=== PATIENT | female | born 1945 | race Caucasian/White ===

== ENCOUNTER → 2016-05-04 | Outpatient (CLI) | payer MEDICARE ==
--- NOTE | 2016-05-06 07:44 | MM ---
Reason for exam: screening (asymptomatic). Last mammogram was performed 1 year and 9 months ago. History: Patient is postmenopausal. Family history of breast cancer in sister and breast cancer in maternal aunt. Physical Findings: A clinical breast exam by your physician is recommended on an annual basis and results should be correlated with mammographic findings. MG Screening Mammo w CAD Bilateral CC and MLO view(s) were taken. Prior study comparison: July 21, 2014, bilateral MG screening mammo w CAD. September 05, 2013, bilateral MG screening mammo w CAD. September 03, 2012, bilateral digital screening mammo w/CAD. September 01, 2011, bilateral digital screening mammo w/CAD. August 30, 2010, bilateral digital screening mammo w/CAD. The breast tissue is heterogeneously dense. This may lower the sensitivity of mammography. Global asymmetry subareolar right breast appears more defined and new from older priors. ASSESSMENT: Incomplete: need additional imaging evaluation, BI-RAD 0 RECOMMENDATION: Special view mammogram of the right breast. If lesion persists on supplemental views, image directed ultrasound is recommended. [facility] will attempt to contact patient to return for supplemental views and ultrasound if indicated.
== END ==
LOC: RADMAMWWP 13:07
PROVIDERS: ATTEND Family Medicine
DX: Z12.31 Encounter for screening mammogram for malignant neoplasm of breast (principal); R92.2 Inconclusive mammogram

== ENCOUNTER → 2016-05-12 | Outpatient (CLI) | payer MEDICARE ==
--- NOTE | 2016-05-12 10:06 | MM ---
Reason for exam: additional evaluation requested from abnormal screening. Last mammogram was performed less than 1 month ago. History: Patient is postmenopausal. Family history of breast cancer in sister and breast cancer in maternal aunt. Physical Findings: Nurse did not find any significant physical abnormalities on exam. MG Work Up Mamm w CAD RT CC and MLO view(s) were taken of the right breast. Prior study comparison: May 04, 2016, bilateral MG screening mammo w CAD. July 21, 2014, bilateral MG screening mammo w CAD. September 05, 2013, bilateral MG screening mammo w CAD. August 28, 2009, bilateral digital screening mammogram. There are scattered fibroglandular densities. New global asymmetry anterior subareolar right breast persists thought no discrete mass is identified. These results were verbally communicated with the patient and result sheet given to the patient on 05/12/16. ASSESSMENT: Incomplete: need additional imaging evaluation, BI-RAD 0 RECOMMENDATION: Ultrasound of the right breast.
--- NOTE | 2016-05-12 10:11 | USB ---
Reason for exam: additional evaluation requested from abnormal screening. History: Patient is postmenopausal. Family history of breast cancer in sister and breast cancer in maternal aunt. US Breast Workup Limited RT Right breast ultrasound demonstrates a 1.8 x 1.5 x 1.2cm irregular, solid, hypoechoic lesion with shadow posterior to nipple for which a biopsy is recommended. These results were verbally communicated with the patient and result sheet given to the patient on 05/12/16. ASSESSMENT: Suspicious, BI-RAD 4 RECOMMENDATION: Ultrasound core biopsy of the right breast. Called Dr. Verdin with mammographic findings and has scheduled an appointment for the patient for 06/08/16 at 4:[address] Bee. Biopsy scheduled for 05/20/16 at 11:30. PRELIMINARY REPORT CALLED AND FAXED TO DR. BEE ON 05/12/16 AT 300/TP.
== END | disposition home or self-care (01) ==
LOC: RADMAMWWP 07:42
PROVIDERS: ATTEND Family Medicine
DX: R92.2 Inconclusive mammogram (principal); R92.8 Other abnormal and inconclusive findings on diagnostic imaging of breast
CPT/HCPCS: 76642; G0206

== ENCOUNTER → 2016-05-20 | Day surgery (SDC) | payer MEDICARE ==
[~2016-05-20] MED LIST: ALPRAZolam 0.25 MG TAB ONE; BACITRACIN OINT 1 EACH PACKET TOPICAL ONE; LIDOCAINE 1% INJ 10MG/ML (20 ML MDV) ONE; SODIUM BICARB 4% 5 ML VIAL (0.48 MEQ/ML) ONE
--- NOTE | 2016-05-20 12:31 | USB ---
EXAMINATION TYPE: US discontinued breast bx RT DATE OF EXAM: 05/20/2016 12:12 PM CLINICAL HISTORY: 71-year-old female R92.8, ABN MAMM. TECHNIQUE AND FINDINGS: The patient's right breast subareolar region was scanned. The suspicious area seen on the 05/12/2016 u ltrasound could not be reproduced. We note the use of 2 different ultrasound machine's. Decision is made to proceed with a stereotactic core needle biopsy. Findings discussed with the patie nt. IMPRESSION: BI-RADS 4-suspicious. RECOMMENDATION: 1. Stereotactic core needle biopsy of the focal asymmetry right breast.
--- NOTE | 2016-05-20 16:47 | MM ---
EXAMINATION TYPE: MG stereo VAD BX RT DATE OF EXAM: 05/20/2016 1:44 PM COMPARISON: 05/04/2016 and 05/12/2016 CLINICAL HISTORY: 71-year-old female abnormal mammogram. The sonographic abnormality could not be duplicated at the time at which the patient presented for ultrasound biopsy. TECHNIQUE: Stereotactic guided core biopsy of the right breast. FINDINGS: The procedure of stereotactic guided core biopsy was explained to the patient. Benefits, alternatives, and risks were discussed. An informed consent was then obtained. [facility]. Shortness pathway was CC from below approach. I performed the localization followed by the remainder of the procedure. An 8 gauge mammotome vacuum assisted biopsy gun was used to obtain multiple core samples. The patient tolerated the procedure well without any immediate complication. The patient was kept in the radiology department for short stay after the procedure and then discharged home in stable condition. Post biopsy mammogram shows the clip to have migrated slightly inferiorly relative to the targeted area of concern on the preprocedure images. IMPRESSION: SUCCESSFUL, UNCOMPLICATED STEREOTACTIC GUIDED CORE BIOPSY OF AREA OF CONCERN IN THE RIGHT BREAST, FULL PATHOLOGY RESULTS TO FOLLOW. RECOMMENDATION: 1. FOLLOW-UP PATHOLOGY. 2. IF BENIGN RESULTS, SIX-MONTH FOLLOW-UP MAMMOGRAM AND ULTRASOUND ARE RECOMMENDED. Pathology Results: Benign BREAST, RIGHT, CORE BIOPSY: FIBROCYSTIC CHANGES INCLUDING DENSE HYALINIZING FIBROSIS, SCAR AND FAT NECROSIS. Recommendation Follow up mammogram and ultrasound of the right breast in 6 months. LIZ
== END | disposition home or self-care (01) ==
LOC: RADUSWWP 10:21
PROVIDERS: ATTEND Surgery
DX: R92.8 Other abnormal and inconclusive findings on diagnostic imaging of breast (principal); N60.31 Fibrosclerosis of right breast; N64.1 Fat necrosis of breast
CPT/HCPCS: 19083; 88305; 19081; 76641; J2001

== ENCOUNTER → 2016-12-01 | Outpatient (CLI) | payer MEDICARE ==
--- NOTE | 2016-12-01 10:37 | USB ---
Reason for exam: follow-up at short interval from prior study. History: Patient is postmenopausal. Family history of breast cancer in sister and breast cancer in maternal aunt. Benign MG stereo VAD BX RT of the right breast, May 20, 2016. US discontinued breast bx RT of the right breast, May 20, 2016. Physical Findings: Nurse did not find any significant physical abnormalities on exam. US Breast RT Right breast ultrasound includes all four quadrants, the retroareolar region and axilla. Finding demonstrates dense tissue. These results were verbally communicated with the patient and result sheet given to the patient on 12/01/16. ASSESSMENT: Negative, BI-RAD 1 RECOMMENDATION: Return to routine screening mammogram schedule for both breasts. Back on schedule for April 2017.
== END | disposition home or self-care (01) ==
LOC: RADUSWWP 09:57
PROVIDERS: ATTEND Surgery
DX: R92.8 Other abnormal and inconclusive findings on diagnostic imaging of breast (principal)

== ENCOUNTER 2017-04-21 06:42 | Day surgery (SDC) | payer MEDICARE ==
[2017-04-19 14:29] VITALS: BMI 20.9
[~2017-04-21 06:42] MED LIST changes: -ALPRAZolam 0.25 MG TAB ONE; -BACITRACIN OINT 1 EACH PACKET TOPICAL ONE; +HYDROmorphone 0.5 MG/0.5 ML SYRINGE IVP PRN; +LACTATED RINGERS 1,000 ML IV SCH; -LIDOCAINE 1% INJ 10MG/ML (20 ML MDV) ONE; +ONDANSETRON 4 MG/2 ML VIAL IVP PRN; -SODIUM BICARB 4% 5 ML VIAL (0.48 MEQ/ML) ONE
[2017-04-21 06:55] VITALS: RESP 16; TEMP 97.3
[2017-04-21 07:09] LABS: Glucose,Whole Blood 166 mg/dL (75-99)
[2017-04-21] MEDS ORDERED: PROPOFOL 10 MG/ML 20 ML VIAL IV ONE (07:33)
--- NOTE | 2017-04-21 08:05 | P.PCN ---
Date of Procedure: 04/21/17 Procedure(s) Performed: BRIEF HISTORY: Patient is a 72-year-old pleasant female, scheduled for an elective colonoscopy as a part of evaluation of change in bowel habits and progressive weight loss the last several months duration. PROCEDURE PERFORMED: Colonoscopy. PREOPERATIVE DIAGNOSIS: Change in bowel habits/progressive weight loss. IV sedation per Anesthesia. PROCEDURE: After informed consent was obtained, the patient, was brought into the endoscopy unit. IV sedation was administered by Anesthesia under continuous monitoring. Digital rectal examination was normal. Initially the Olympus CF- 160 flexible video colonoscope was then inserted in the rectum, gradually advanced into the cecum without any difficulty. Careful examination was performed as the scope was gradually being withdrawn. Ileocecal valve and the appendiceal orifice were visualized and appeared normal. Prep was excellent. Mucosa of the cecum, ascending colon, transverse colon, descending colon, sigmoid colon, and rectum appeared normal. Retroflexion was performed in the rectum and no lesions were seen. Scattered sigmoid diverticula seen. The patient tolerated the procedure well. IMPRESSION: Normal-appearing colon from rectum to cecum with no evidence of colorectal neoplasia Scattered sigmoid diverticula. RECOMMENDATIONS: Findings of this examination were discussed with the patient as well as her family. She was advised to have a repeat screening colonoscopy in 10 years..
[2017-04-21 08:14] VITALS: BP 114/72; PULSE 67
== END 2017-04-21 08:45 | disposition home or self-care (01) ==
LOC: ORWHC2ENDO 06:42
PROVIDERS: ATTEND Internal Medicine Gastroenterology
DX: K57.30 Diverticulosis of large intestine without perforation or abscess without bleeding (principal); I10 Essential (primary) hypertension; E78.5 Hyperlipidemia, unspecified; I48.91 Unspecified atrial fibrillation; E11.9 Type 2 diabetes mellitus without complications; F03.90 Unspecified dementia, unspecified severity, without behavioral disturbance, psychotic disturbance, mood disturbance, and anxiety; Z79.01 Long term (current) use of anticoagulants; Z79.4 Long term (current) use of insulin; Z79.899 Other long term (current) drug therapy
CPT/HCPCS: 45378; J2704

== ENCOUNTER → 2017-05-08 | Outpatient (CLI) | payer MEDICARE ==
--- NOTE | 2017-05-08 12:57 | CT ---
EXAMINATION TYPE: CT abdomen pelvis wo con DATE OF EXAM: 05/08/2017 COMPARISON: NONE HISTORY: Hematuria CT DLP: 716 mGycm Examination of the solid and hollow viscera is limited given the lack of contrast. FINDINGS: LUNG BASES: No evidence for nodule. No evidence for infiltrate. LIVER/GB: The gallbladder is unremarkable. No space-occupying hepatic lesion. PANCREAS: No pancreatic mass identified. No inflammatory process seen. SPLEEN: No evidence for splenomegaly. No intrasplenic lesions seen. ADRENALS: No adrenal nodules identified. No evidence for thickening. KIDNEYS: No evidence for renal mass. No nephrolithiasis. No hydronephrosis. Large amount of air withi n the urinary bladder likely secondary to recent catheterization. BOWEL: Appendix has a normal appearance. No evidence of bowel obstruction. No inflammatory process. S mall sliding-type hiatal hernia. Lymph nodes: No evidence for adenopathy greater than 1 cm. Abdominal aorta: Atheromatous changes seen. No evidence for aneurysm. Genital organs: Small calcified leiomyomas. Periuterine vascular calcifications. No adnexal masses ap preciated. Other: No significant abnormality. IMPRESSION: 1. No distinct abnormality to account for the patient's symptoms of hematuria. 2. Air within the bladder as discussed. 3. Small sliding-type hiatal hernia.
== END | disposition home or self-care (01) ==
LOC: RADCTMAIN 12:22
PROVIDERS: ATTEND Family Medicine
DX: K44.9 Diaphragmatic hernia without obstruction or gangrene (principal); R31.9 Hematuria, unspecified
CPT/HCPCS: 74176

== ENCOUNTER 2017-05-12 08:01 | Emergency (ER) | payer MEDICARE ==
[2017-05-12] MEDS ORDERED: SODIUM CHLORIDE 0.9% 1,000 ML IV STA (08:12)
[2017-05-12] MEDS ORDERED: SODIUM CHLORIDE 0.9% 500 ML IV STA (08:12)
--- NOTE | 2017-05-12 08:53 | ED ---
General Adult HPI - General Chief complaint: Weakness Stated complaint: NO ENERGY, PAIN IN RIGHT SIDE Time Seen by Provider: 05/12/17 08:11 Source: patient, family, RN notes reviewed, old records reviewed Mode of arrival: ambulatory Limitations: altered mental status - History of Present Illness Initial comments: This is a 72-year-old female to the ER for evaluation of weakness and pain. Patient is no significant injury medical history. Patient states is been weak for 2 days with pain in her right arm. She also has rash across the right side of her chest. No fevers no nausea vomiting or diarrhea no chest pain. Patient does state increased fatigue decreased appetite. Not feeling well - Related Data Home Medications Medication Instructions Recorded Confirmed Aspirin [Adult Low Dose Aspirin EC] 81 mg PO DAILY 09/28/15 05/12/17 Atorvastatin [Lipitor] 10 mg PO HS 09/28/15 05/12/17 Carvedilol [Coreg] 3.125 mg PO QAM 09/28/15 05/12/17 Donepezil [Aricept] 10 mg PO HS 09/28/15 05/12/17 Insulin Glargine [Lantus] 20 unit SQ QAM 09/28/15 05/12/17 Lisinopril [Zestril] 20 mg PO BID 09/28/15 05/12/17 Magnesium Oxide [Mag-Ox] 400 mg PO DAILY 09/28/15 05/12/17 Raloxifene [Evista] 60 mg PO HS 09/28/15 05/12/17 Repaglinide [Prandin] 0.5 mg PO QID 09/28/15 05/12/17 amLODIPine [Norvasc] 5 mg PO DAILY 09/28/15 05/12/17 Cholecalciferol [Vitamin D3] 400 unit PO DAILY@1200 04/19/17 05/12/17 Memantine [Namenda] 10 mg PO BID 04/19/17 05/12/17 Multivitamins, Thera [Multivitamin 1 tab PO DAILY 04/19/17 05/12/17 (formulary)] Rivaroxaban [Xarelto] 20 mg PO DAILY 04/19/17 05/12/17 Ascorbic Acid [Vitamin C] 500 mg PO DAILY 05/12/17 05/12/17 Previous Rx's Medication Instructions Recorded Lidocaine 5% Patch [Lidoderm] 1 patch TOPICAL DAILY #7 patch 05/12/17 traMADol HCL [Ultram] 50 mg PO Q6HR PRN #30 tab 05/12/17 valACYclovir HCL [Valtrex] 1,000 mg PO Q8HR #21 tab 05/12/17 Allergies Allergy/AdvReac Type Severity Reaction Status Date / Time No Known Allergies Allergy Verified 05/12/17 08:19 Review of Systems ROS Statement: Those systems with pertinent positive or pertinent negative responses have been documented in the HPI. ROS Other: All systems not noted in ROS Statement are negative. Past Medical History Past Medical History: Atrial Fibrillation, Dementia, Diabetes Mellitus, Hyperlipidemia, Hypertension, Sleep Apnea/CPAP/BIPAP Additional Past Medical History / Comment(s): wt loss of 183# down to 123# over last year,no appetite,scratches skin frequently causing some sores,has cpap History of Any Multi-Drug Resistant Organisms: None Reported Past Surgical History: No Surgical Hx Reported Additional Past Surgical History / Comment(s): mark cataracts,rt retinal repair Past Anesthesia/Blood Transfusion Reactions: No Reported Reaction Past Psychological History: No Psychological Hx Reported Smoking Status: Never smoker Past Alcohol Use History: None Reported Past Drug Use History: None Reported - Past Family History Mother Family Medical History: Cancer Father Family Medical History: Cancer Sister(s) Family Medical History: CVA/TIA, Dementia General Exam Limitations: altered mental status General appearance: alert, in no apparent distress Head exam: Present: atraumatic, normocephalic, normal inspection Eye exam: Present: normal appearance, PERRL, EOMI. Absent: scleral icterus, conjunctival injection, periorbital swelling ENT exam: Present: normal exam, mucous membranes moist Neck exam: Present: normal inspection. Absent: tenderness, meningismus, lymphadenopathy Respiratory exam: Present: normal lung sounds bilaterally. Absent: respiratory distress, wheezes, rales, rhonchi, stridor Cardiovascular Exam: Present: regular rate, normal rhythm, normal heart sounds. Absent: systolic murmur, diastolic murmur, rubs, gallop, clicks GI/Abdominal exam: Present: soft, normal bowel sounds. Absent: distended, tenderness, guarding, rebound, rigid Extremities exam: Present: normal inspection, full ROM, normal capillary refill. Absent: tenderness, pedal edema, joint swelling, calf tenderness Back exam: Present: normal inspection Neurological exam: Present: alert, oriented X3, CN II-XII intact Psychiatric exam: Present: normal affect, normal mood Skin exam: Present: warm, dry, intact, normal color. Absent: rash Course Vital Signs 05/12/17 05/12/17 05/12/17 08:04 09:25 10:20 Temperature 98.1 F 98.0 F 98.0 F Pulse Rate 82 73 74 Respiratory 18 20 20 Rate Blood Pressure 134/63 131/64 130/85 O2 Sat by Pulse 99 100 99 Oximetry - Reevaluation(s) Reevaluation #1: His pain is controlled no acute distress no chest pain or shortness of breath EKG Findings - EKG Comments: EKG Findings:: EKG shows normal sinus rhythm rate of 79, LA 138, QRS 70, QTc 444 Medical Decision Making - Medical Decision Making 72 female the ER for evaluation, right side pain or chest pain. Patient's feeling better at this time, would like to be discharged home, labwork and x- ray are negative - Lab Data Result diagrams: 05/12/17 08:35 05/12/17 08:35 Lab Results 05/12/17 05/12/17 05/12/17 Range/Units 08:35 08:35 08:35 WBC 5.8 (3.8-10.6) k/uL RBC 4.61 (3.80-5.40) m/uL Hgb 13.4 (11.4-16.0) gm/dL Hct 40.7 (34.0-46.0) % MCV 88.3 (80.0-100.0) fL MCH 29.0 (25.0-35.0) pg MCHC 32.9 (31.0-37.0) g/dL RDW 12.4 (11.5-15.5) % Plt Count 211 (150-450) k/uL Neutrophils % 75 % Lymphocytes % 13 % Monocytes % 6 % Eosinophils % 4 % Basophils % 0 % Neutrophils # 4.3 (1.3-7.7) k/uL Lymphocytes # 0.8 L (1.0-4.8) k/uL Monocytes # 0.3 (0-1.0) k/uL Eosinophils # 0.2 (0-0.7) k/uL Basophils # 0.0 (0-0.2) k/uL PT (9.0-12.0) sec INR (<1.2) APTT (22.0-30.0) sec Sodium 140 (137-145) mmol/L Potassium 4.1 (3.5-5.1) mmol/L Chloride 102 (98-107) mmol/L Carbon Dioxide 28 (22-30) mmol/L Anion Gap 10 mmol/L BUN 11 (7-17) mg/dL Creatinine 0.67 (0.52-1.04) mg/dL Est GFR (MDRD) Af Amer >60 (>60 ml/min/1.73 sqM) Est GFR (MDRD) Non-Af >60 (>60 ml/min/1.73 sqM) Glucose 337 H (74-99) mg/dL Plasma Lactic Acid Venkat (0.7-2.0) mmol/L Calcium 9.8 (8.4-10.2) mg/dL Phosphorus 3.7 (2.5-4.5) mg/dL Magnesium 2.0 (1.6-2.3) mg/dL Total Bilirubin 1.0 (0.2-1.3) mg/dL AST 20 (14-36) U/L ALT 26 (9-52) U/L Alkaline Phosphatase 92 (38-126) U/L Total Creatine Kinase <20 L (30-135) U/L CK-MB (CK-2) <0.2 (0.0-2.4) ng/mL CK-MB (CK-2) Rel Index Troponin I <0.012 (0.000-0.034) ng/mL Total Protein 6.9 (6.3-8.2) g/dL Albumin 3.7 (3.5-5.0) g/dL Influenza Type A RNA (Not Detectd) Influenza Type B (PCR) (Not Detectd) 05/12/17 05/12/17 05/12/17 Range/Units 08:35 08:35 08:40 WBC (3.8-10.6) k/uL RBC (3.80-5.40) m/uL Hgb (11.4-16.0) gm/dL Hct (34.0-46.0) % MCV (80.0-100.0) fL MCH (25.0-35.0) pg MCHC (31.0-37.0) g/dL RDW (11.5-15.5) % Plt Count (150-450) k/uL Neutrophils % % Lymphocytes % % Monocytes % % Eosinophils % % Basophils % % Neutrophils # (1.3-7.7) k/uL Lymphocytes # (1.0-4.8) k/uL Monocytes # (0-1.0) k/uL Eosinophils # (0-0.7) k/uL Basophils # (0-0.2) k/uL PT 11.1 (9.0-12.0) sec INR 1.2 H (<1.2) APTT 23.8 (22.0-30.0) sec Sodium (137-145) mmol/L Potassium (3.5-5.1) mmol/L Chloride (98-107) mmol/L Carbon Dioxide (22-30) mmol/L Anion Gap mmol/L BUN (7-17) mg/dL Creatinine (0.52-1.04) mg/dL Est GFR (MDRD) Af Amer (>60 ml/min/1.73 sqM) Est GFR (MDRD) Non-Af (>60 ml/min/1.73 sqM) Glucose (74-99) mg/dL Plasma Lactic Acid Venkat 1.2 (0.7-2.0) mmol/L Calcium (8.4-10.2) mg/dL Phosphorus (2.5-4.5) mg/dL Magnesium (1.6-2.3) mg/dL Total Bilirubin (0.2-1.3) mg/dL AST (14-36) U/L ALT (9-52) U/L Alkaline Phosphatase (38-126) U/L Total Creatine Kinase (30-135) U/L CK-MB (CK-2) (0.0-2.4) ng/mL CK-MB (CK-2) Rel Index Troponin I (0.000-0.034) ng/mL Total Protein (6.3-8.2) g/dL Albumin (3.5-5.0) g/dL Influenza Type A RNA Not Detected (Not Detectd) Influenza Type B (PCR) Not Detected (Not Detectd) - Radiology Data Radiology results: report reviewed (Chest x-rays negative for acute disease), image reviewed Disposition Clinical Impression: Flank pain Disposition: HOME SELF-CARE Condition: Good Instructions: Abdominal Pain (ED) Prescriptions: Lidocaine 5% Patch [Lidoderm] 1 patch TOPICAL DAILY #7 patch traMADol HCL [Ultram] 50 mg PO Q6HR PRN #30 tab PRN Reason: Pain valACYclovir HCL [Valtrex] 1,000 mg PO Q8HR #21 tab Referrals: Staci Verdin MD [Primary Care Provider] - 1-2 days
[2017-05-12 09:07] LABS: Basophils % (A) 0 %; Eosinophils # (A) 0.2 k/uL (0-0.7); Eosinophils % (A) 4 %; HCT 40.7 % (34.0-46.0); HGB 13.4 gm/dL (11.4-16.0); Lymphocytes # (A) 0.8 k/uL (1.0-4.8); Lymphocytes % (A) 13 %; MCHC 32.9 g/dL (31.0-37.0); MCV 88.3 fL (80.0-100.0); Mean Platelet Volume 7.5; Monocytes # (A) 0.3 k/uL (0-1.0); Monocytes % (A) 6 %; Neutrophils # (A) 4.3 k/uL (1.3-7.7); Neutrophils % (A) 75 %; Platelet Count 211 k/uL (150-450); RBC 4.61 m/uL (3.80-5.40); RDW 12.4 % (11.5-15.5); WBC 5.8 k/uL (3.8-10.6)
--- NOTE | 2017-05-12 09:09 | XR ---
EXAMINATION TYPE: XR chest 2V DATE OF EXAM: 05/12/2017 COMPARISON: None HISTORY: 72-year-old female with weakness and confusion TECHNIQUE: AP and lateral views FINDINGS: The cardiomediastinal silhouette, aorta, and pulmonary vasculature are within normal limits. Strandy atelectasis in the lower lungs. Mild hyperinflation. Otherwise, lungs And pleural spaces are clear. IMPRESSION: No acute cardiopulmonary process. Mild hyperinflation may relate to depth of inspiration or underlyin g emphysema.
[2017-05-12 09:10] LABS: INR 1.2 (<1.2); Partial Thromboplastin Time 23.8 sec (22.0-30.0); Prothrombin Time 11.1 sec (9.0-12.0)
[2017-05-12] MEDS ORDERED: MORPHINE SULFATE 2 MG/ML SYRINGE IVP ONE (09:10)
[2017-05-12] MEDS ORDERED: valACYclovir HCL 1,000 MG TABLET PO STA (09:12)
[2017-05-12] MEDS ORDERED: ACETAMINOPHEN IV (For NPO) 1,000 MG in EMPTY BAG 1 BAG IVPB STA (09:12)
[2017-05-12 09:15] LABS: ALT 26 U/L (9-52); AST 20 U/L (14-36); Albumin 3.7 g/dL (3.5-5.0); Alkaline Phosphatase 92 U/L (38-126); Anion Gap 10 mmol/L; Blood Urea Nitrogen 11 mg/dL (7-17); Calcium 9.8 mg/dL (8.4-10.2); Carbon Dioxide 28 mmol/L (22-30); Chloride 102 mmol/L (98-107); Glucose 337 mg/dL (74-99); Phosphorous 3.7 mg/dL (2.5-4.5); Potassium 4.1 mmol/L (3.5-5.1); Sodium 140 mmol/L (137-145); Total Protein 6.9 g/dL (6.3-8.2)
[2017-05-12] MEDS ORDERED: LIDOCAINE 5% PATCH TOPICAL STA (09:23)
[2017-05-12 09:24] LABS: Creatine Kinase <20 U/L (30-135)
[2017-05-12 09:26] VITALS: RESP 20; TEMP 98
[2017-05-12 09:37] LABS: Creatine Kinase MB <0.2 ng/mL (0.0-2.4); Troponin I <0.012 ng/mL (0.000-0.034)
[2017-05-12 10:25] VITALS: BP 130/85; PULSE 74
[2017-05-13] MEDS ORDERED: LIDOCAINE 5% PATCH TOPICAL SCH (09:00)
== END 2017-05-12 10:24 | disposition home or self-care (01) ==
LOC: EC 08:01
DX: R10.9 Unspecified abdominal pain (principal); R41.82 Altered mental status, unspecified; R53.1 Weakness; M79.601 Pain in right arm; R21 Rash and other nonspecific skin eruption; R53.83 Other fatigue; R63.8 Other symptoms and signs concerning food and fluid intake; E78.5 Hyperlipidemia, unspecified; I48.91 Unspecified atrial fibrillation; I10 Essential (primary) hypertension; E11.9 Type 2 diabetes mellitus without complications; F03.90 Unspecified dementia, unspecified severity, without behavioral disturbance, psychotic disturbance, mood disturbance, and anxiety; G47.30 Sleep apnea, unspecified; Z79.01 Long term (current) use of anticoagulants; Z79.82 Long term (current) use of aspirin; Z79.4 Long term (current) use of insulin; Z79.899 Other long term (current) drug therapy; Z99.89 Dependence on other enabling machines and devices; Z53.20 Procedure and treatment not carried out because of patient's decision for unspecified reasons
CPT/HCPCS: 36415; 71046; 80053; 82550; 82553; 83605; 83735; 84100; 84484; 85025; 85610; 85730; 87502; 93005; 96360; 99285

== ENCOUNTER 2017-05-23 08:14 | Emergency (ER) | payer MEDICARE ==
[2017-05-23] MEDS ORDERED: SODIUM CHLORIDE 0.9% 500 ML IV STA (08:44)
--- NOTE | 2017-05-23 08:51 | ED ---
General Adult HPI - General Chief complaint: Weakness Stated complaint: Weak/constipation Time Seen by Provider: 05/23/17 08:36 Source: patient, family, RN notes reviewed Mode of arrival: ambulatory Limitations: no limitations - History of Present Illness Initial comments: This is a 72-year-old female presents emergency Department with chief complaint of generalized weakness, constipation. Patient states that she has not been feeling herself patient reports that she had an episode of shaking this morning. She did check her blood sugar which was 216. Patient states she feels much better at this time and has no specific complaints. She did state that she felt like she did have a bowel movement but cannot that she thought she may be constipated. She denies any dysuria no hematuria. She did urinate here without difficulty. Patient denies any headache, dizziness, chest pain, shortness of breath. Patient had a recent bout of shingles which is resolving. Patient was also seen in emergency department approximately 11 days ago for similar complaints of weakness. Patient has had recent weight loss over the last year of pressure 50 pounds which the daughter reports to patient not eating or for getting the patient that she is having difficulty with her dementia. - Related Data Home Medications Medication Instructions Recorded Confirmed Aspirin [Adult Low Dose Aspirin EC] 81 mg PO DAILY 09/28/15 05/23/17 Atorvastatin [Lipitor] 5 mg PO HS 09/28/15 05/23/17 Carvedilol [Coreg] 3.125 mg PO QAM 09/28/15 05/23/17 Donepezil [Aricept] 10 mg PO HS 09/28/15 05/23/17 Insulin Glargine [Lantus] 10 units SQ DAILY 09/28/15 05/23/17 Lisinopril [Zestril] 20 mg PO BID 09/28/15 05/23/17 Magnesium Oxide [Mag-Ox] 400 mg PO BID 09/28/15 05/23/17 Raloxifene [Evista] 60 mg PO HS 09/28/15 05/23/17 Repaglinide [Prandin] 0.5 mg PO QAM 09/28/15 05/23/17 amLODIPine [Norvasc] 5 mg PO DAILY 09/28/15 05/23/17 Memantine [Namenda] 10 mg PO BID 04/19/17 05/23/17 Fluconazole [Diflucan] 100 mg PO DAILY 05/23/17 05/23/17 Mirtazapine [Remeron] 15 mg PO HS 05/23/17 05/23/17 Repaglinide [Prandin] 1 - 1.5 mg PO HS 05/23/17 05/23/17 Previous Rx's Medication Instructions Recorded Lidocaine 5% Patch [Lidoderm] 1 patch TOPICAL DAILY #7 patch 05/12/17 traMADol HCL [Ultram] 50 mg PO Q6HR PRN #30 tab 05/12/17 valACYclovir HCL [Valtrex] 1,000 mg PO Q8HR #21 tab 05/12/17 Allergies Allergy/AdvReac Type Severity Reaction Status Date / Time No Known Allergies Allergy Verified 05/23/17 08:59 Review of Systems ROS Statement: Those systems with pertinent positive or pertinent negative responses have been documented in the HPI. ROS Other: All systems not noted in ROS Statement are negative. Past Medical History Past Medical History: Atrial Fibrillation, Dementia, Diabetes Mellitus, Hyperlipidemia, Hypertension, Sleep Apnea/CPAP/BIPAP Additional Past Medical History / Comment(s): wt loss of 183# down to 123# over last year,no appetite,scratches skin frequently causing some sores,has cpap History of Any Multi-Drug Resistant Organisms: None Reported Past Surgical History: No Surgical Hx Reported Additional Past Surgical History / Comment(s): mark cataracts,rt retinal repair Past Anesthesia/Blood Transfusion Reactions: No Reported Reaction Past Psychological History: No Psychological Hx Reported Smoking Status: Never smoker Past Alcohol Use History: None Reported Past Drug Use History: None Reported - Past Family History Mother Family Medical History: Cancer Father Family Medical History: Cancer Sister(s) Family Medical History: CVA/TIA, Dementia General Exam Limitations: no limitations General appearance: alert, in no apparent distress Head exam: Present: atraumatic, normocephalic, normal inspection Eye exam: Present: normal appearance, PERRL, EOMI. Absent: scleral icterus, conjunctival injection, periorbital swelling ENT exam: Present: normal exam, normal oropharynx, mucous membranes moist Neck exam: Present: normal inspection, full ROM. Absent: tenderness, meningismus, lymphadenopathy Respiratory exam: Present: normal lung sounds bilaterally. Absent: respiratory distress, wheezes, rales, rhonchi, stridor Cardiovascular Exam: Present: regular rate, normal rhythm, normal heart sounds. Absent: systolic murmur, diastolic murmur, rubs, gallop, clicks GI/Abdominal exam: Present: soft, normal bowel sounds. Absent: distended, tenderness, guarding, rebound, rigid Back exam: Present: full ROM. Absent: tenderness, CVA tenderness (R), CVA tenderness (L) Skin exam: Present: warm, dry, intact, normal color, rash (Right upper back there is erythematous areas with scaling noted) Course Vital Signs 05/23/17 08:23 Temperature 97.6 F Pulse Rate 83 Respiratory 18 Rate Blood Pressure 120/59 O2 Sat by Pulse 99 Oximetry EKG Findings - EKG Comments: EKG Findings:: EKG performed at 8:40 normal sinus rhythm with a rate of 74. 146 QRS 78 QT/QTC 350/397 Medical Decision Making - Medical Decision Making 72-year-old female presented emergency department for slight weakness this morning. She felt better when she got emergency department though she still underwent labwork EKG. She was found have mild hyperglycemia. She was given insulin family recheck glucose at home. Patient has no complaints. She did have some mild constipation given enema which she had a bowel movement. X-ray showed possible ileus she has no abdominal tenderness she has no abdominal pain. Patient will be discharged at this time advised to continue to suffer laxative if needed she'll return for any worsening symptoms and follow with primary care physician. - Lab Data Result diagrams: 05/23/17 08:19 05/23/17 08:19 Lab Results 05/23/17 05/23/17 05/23/17 Range/Units 08:19 08:19 08:19 WBC 7.9 (3.8-10.6) k/uL RBC 4.26 (3.80-5.40) m/uL Hgb 12.4 (11.4-16.0) gm/dL Hct 37.3 (34.0-46.0) % MCV 87.5 (80.0-100.0) fL MCH 29.0 (25.0-35.0) pg MCHC 33.2 (31.0-37.0) g/dL RDW 13.2 (11.5-15.5) % Plt Count 217 (150-450) k/uL Neutrophils % 80 % Lymphocytes % 14 % Monocytes % 4 % Eosinophils % 2 % Basophils % 0 % Neutrophils # 6.3 (1.3-7.7) k/uL Lymphocytes # 1.1 (1.0-4.8) k/uL Monocytes # 0.3 (0-1.0) k/uL Eosinophils # 0.1 (0-0.7) k/uL Basophils # 0.0 (0-0.2) k/uL PT (9.0-12.0) sec INR (<1.2) APTT (22.0-30.0) sec Sodium 137 (137-145) mmol/L Potassium 4.2 (3.5-5.1) mmol/L Chloride 101 (98-107) mmol/L Carbon Dioxide 28 (22-30) mmol/L Anion Gap 8 mmol/L BUN 10 (7-17) mg/dL Creatinine 0.62 (0.52-1.04) mg/dL Est GFR (MDRD) Af Amer >60 (>60 ml/min/1.73 sqM) Est GFR (MDRD) Non-Af >60 (>60 ml/min/1.73 sqM) Glucose 338 H (74-99) mg/dL Calcium 9.4 (8.4-10.2) mg/dL Magnesium 2.0 (1.6-2.3) mg/dL Total Bilirubin 1.1 (0.2-1.3) mg/dL AST 20 (14-36) U/L ALT 19 (9-52) U/L Alkaline Phosphatase 75 (38-126) U/L Total Creatine Kinase <20 L (30-135) U/L CK-MB (CK-2) <0.2 (0.0-2.4) ng/mL CK-MB (CK-2) Rel Index Troponin I <0.012 (0.000-0.034) ng/mL Total Protein 6.2 L (6.3-8.2) g/dL Albumin 3.4 L (3.5-5.0) g/dL Urine Color Urine Appearance (Clear) Urine pH (5.0-8.0) Ur Specific [place] (1.001-1.035) Urine Protein (Negative) Urine Glucose (UA) (Negative) Urine Ketones (Negative) Urine Blood (Negative) Urine Nitrite (Negative) Urine Bilirubin (Negative) Urine Urobilinogen (<2.0) mg/dL Ur Leukocyte Esterase (Negative) Urine RBC (0-5) /hpf Urine WBC (0-5) /hpf Ur Squamous Epith Cells (0-4) /hpf Urine Mucus (None) /hpf 05/23/17 05/23/17 Range/Units 08:19 08:19 WBC (3.8-10.6) k/uL RBC (3.80-5.40) m/uL Hgb (11.4-16.0) gm/dL Hct (34.0-46.0) % MCV (80.0-100.0) fL MCH (25.0-35.0) pg MCHC (31.0-37.0) g/dL RDW (11.5-15.5) % Plt Count (150-450) k/uL Neutrophils % % Lymphocytes % % Monocytes % % Eosinophils % % Basophils % % Neutrophils # (1.3-7.7) k/uL Lymphocytes # (1.0-4.8) k/uL Monocytes # (0-1.0) k/uL Eosinophils # (0-0.7) k/uL Basophils # (0-0.2) k/uL PT 11.2 (9.0-12.0) sec INR 1.2 H (<1.2) APTT 22.9 (22.0-30.0) sec Sodium (137-145) mmol/L Potassium (3.5-5.1) mmol/L Chloride (98-107) mmol/L Carbon Dioxide (22-30) mmol/L Anion Gap mmol/L BUN (7-17) mg/dL Creatinine (0.52-1.04) mg/dL Est GFR (MDRD) Af Amer (>60 ml/min/1.73 sqM) Est GFR (MDRD) Non-Af (>60 ml/min/1.73 sqM) Glucose (74-99) mg/dL Calcium (8.4-10.2) mg/dL Magnesium (1.6-2.3) mg/dL Total Bilirubin (0.2-1.3) mg/dL AST (14-36) U/L ALT (9-52) U/L Alkaline Phosphatase (38-126) U/L Total Creatine Kinase (30-135) U/L CK-MB (CK-2) (0.0-2.4) ng/mL CK-MB (CK-2) Rel Index Troponin I (0.000-0.034) ng/mL Total Protein (6.3-8.2) g/dL Albumin (3.5-5.0) g/dL Urine Color Light Yellow Urine Appearance Clear (Clear) Urine pH 7.0 (5.0-8.0) Ur Specific [place] 1.011 (1.001-1.035) Urine Protein Negative (Negative) Urine Glucose (UA) 4+ H (Negative) Urine Ketones Negative (Negative) Urine Blood Small H (Negative) Urine Nitrite Negative (Negative) Urine Bilirubin Negative (Negative) Urine Urobilinogen <2.0 (<2.0) mg/dL Ur Leukocyte Esterase Negative (Negative) Urine RBC 41 H (0-5) /hpf Urine WBC 3 (0-5) /hpf Ur Squamous Epith Cells <1 (0-4) /hpf Urine Mucus Rare H (None) /hpf Disposition Clinical Impression: Constipation, Hyperglycemia, Fatigue Disposition: HOME SELF-CARE Condition: Stable Instructions: Diabetic Hyperglycemia (ED) Additional Instructions: Please return to the Emergency Department if symptoms worsen or any other concerns. Referrals: Staci Verdin MD [Primary Care Provider] - 1-2 days Time of Disposition: 10:35
[2017-05-23 09:17] LABS: Basophils % (A) 0 %; Eosinophils # (A) 0.1 k/uL (0-0.7); Eosinophils % (A) 2 %; HCT 37.3 % (34.0-46.0); HGB 12.4 gm/dL (11.4-16.0); Lymphocytes # (A) 1.1 k/uL (1.0-4.8); Lymphocytes % (A) 14 %; MCHC 33.2 g/dL (31.0-37.0); MCV 87.5 fL (80.0-100.0); Mean Platelet Volume 7.3; Monocytes # (A) 0.3 k/uL (0-1.0); Monocytes % (A) 4 %; Neutrophils # (A) 6.3 k/uL (1.3-7.7); Neutrophils % (A) 80 %; Platelet Count 217 k/uL (150-450); RBC 4.26 m/uL (3.80-5.40); RDW 13.2 % (11.5-15.5); WBC 7.9 k/uL (3.8-10.6)
[2017-05-23 09:21] LABS: Appearance,Urine Clear (Clear); Bilirubin,Urine Negative (Negative); Blood,Urine Small (Negative); Color,Urine Light Yellow; Glucose,Urine (UA) 4+ (Negative); INR 1.2 (<1.2); Ketones,Urine Negative (Negative); Leukocyte Esterase,Urine Negative (Negative); Mucus,Urine Rare /hpf; Nitrite,Urine Negative (Negative); Partial Thromboplastin Time 22.9 sec (22.0-30.0); Protein,Urine Negative (Negative); Prothrombin Time 11.2 sec (9.0-12.0); RBC,Urine 41 /hpf (0-5); Specific Gravity,Urine 1.011 (1.001-1.035); Squamous Epithelial Cell,Urine <1 /hpf (0-4); Urobilinogen,Urine <2.0 mg/dL (<2.0); WBC,Urine 3 /hpf (0-5)
[2017-05-23 09:22] LABS: ALT 19 U/L (9-52); AST 20 U/L (14-36); Albumin 3.4 g/dL (3.5-5.0); Alkaline Phosphatase 75 U/L (38-126); Anion Gap 8 mmol/L; Blood Urea Nitrogen 10 mg/dL (7-17); Calcium 9.4 mg/dL (8.4-10.2); Carbon Dioxide 28 mmol/L (22-30); Chloride 101 mmol/L (98-107); Glucose 338 mg/dL (74-99); Sodium 137 mmol/L (137-145); Total Bilirubin 1.1 mg/dL (0.2-1.3); Total Protein 6.2 g/dL (6.3-8.2)
[2017-05-23 09:25] LABS: Potassium 4.2 mmol/L (3.5-5.1)
--- NOTE | 2017-05-23 09:29 | XR ---
EXAMINATION TYPE: XR KUB DATE OF EXAM: 05/23/2017 9:20 AM CLINICAL HISTORY: Constipation TECHNIQUE: Single upright image of the abdomen is obtained. COMPARISON: None. FINDINGS: Few scattered air-fluid levels are seen within nondilated large bowel retained fecal materi al is seen within the rectum and distal sigmoid colon. No proximal dilation or evidence of obstructio n. No small bowel dilation. Scattered gas is seen in non-distended small bowel loops. Gas and fecal m aterial is seen in non-distended colon. There is no visceromegaly, pneumoperitoneum, or abnormal calc ification appreciated. The lung bases are clear. Osseous structures are intact although there are mod erate multilevel degenerative changes and a mild levoscoliotic curvature of the lumbar spine. Moderat e femoral acetabular arthropathy is also noted. IMPRESSION: Few colonic air-fluid levels in nondilated bowel suggest colonic ileus. Copious amount of stool within the rectal vault and distal sigmoid may relate to fecal impaction without proximal obst ruction.
[2017-05-23 09:40] LABS: Creatine Kinase <20 U/L (30-135)
[2017-05-23 09:54] LABS: Creatine Kinase MB <0.2 ng/mL (0.0-2.4); Troponin I <0.012 ng/mL (0.000-0.034)
[2017-05-23] MEDS ORDERED: INSULIN ASPART 100 UNIT/ML 1 ML 10 ML VIAL SQ ONE (10:02)
[2017-05-23 10:45] VITALS: BP 120/62; PULSE 89; RESP 16; TEMP 98
== END 2017-05-23 10:44 | disposition home or self-care (01) ==
LOC: EC 08:14
DX: E11.65 Type 2 diabetes mellitus with hyperglycemia (principal); K59.00 Constipation, unspecified; B02.9 Zoster without complications; R63.4 Abnormal weight loss; E78.5 Hyperlipidemia, unspecified; I10 Essential (primary) hypertension; F03.90 Unspecified dementia, unspecified severity, without behavioral disturbance, psychotic disturbance, mood disturbance, and anxiety; Z79.4 Long term (current) use of insulin; Z79.82 Long term (current) use of aspirin; Z79.899 Other long term (current) drug therapy
CPT/HCPCS: 36415; 74018; 80053; 81001; 82550; 82553; 83735; 84484; 85025; 85610; 85730; 93005; 99285

== ENCOUNTER → 2018-12-12 | Outpatient (CLI) | payer MEDICARE ==
--- NOTE | 2018-12-12 14:42 | CT ---
EXAMINATION TYPE: CT abdomen pelvis w con DATE OF EXAM: 12/12/2018 COMPARISON: 05/08/2017 HISTORY: Hematuria CT DLP: 828.8 mGycm CONTRAST: CT scan of the abdomen and pelvis is performed with Oral Contrast and with IV Contrast, patient injec leeanna with 100 mL of Isovue 300. FINDINGS: LUNG BASES-: Nodular density left lower lobe measures 1.2 cm. Additional smaller nodules identified m easuring [address] of the chest is recommended. LIVER/GB: No calcified gallstones. Mild hepatic steatosis noted. No space occupying hepatic lesion . Biliary tree is of normal caliber. PANCREAS: No inflammation. No distinct mass. SPLEEN: No splenic enlargement. No lesion seen. ADRENALS: No nodule. No thickening. KIDNEYS/BLADDER: No hydronephrosis. No nephrolithiasis. No distinct renal mass. Urinary bladder g rossly unremarkable. BOWEL: Normal appendix. Normal bowel caliber. No inflammation. GENITAL ORGANS: No gross abnormality. LYMPH NODES: No greater than 1cm abdominal or pelvic lymph nodes are appreciated. AORTA: No significant abnormality. OSSEOUS STRUCTURES: No significant abnormality is seen. OTHER: No significant additional abnormality is seen. IMPRESSION: 1. No distinct abnormality to account for the patient's symptoms of hematuria.
== END | disposition home or self-care (01) ==
LOC: RADCTMAIN 12:11
PROVIDERS: ATTEND Family Medicine
DX: R31.9 Hematuria, unspecified (principal)
CPT/HCPCS: 74177; Q9967

== ENCOUNTER 2019-04-26 17:58 | Observation (INO) | payer MEDICARE ==
[2019-04-26] MEDS ORDERED: SODIUM CHLORIDE 0.9% 1,000 ML IV STA (19:30)
[2019-04-26] MEDS ORDERED: ONDANSETRON 4 MG/2 ML VIAL IVP STA (19:30)
--- NOTE | 2019-04-26 19:31 | ED ---
Weakness HPI - General Chief complaint: Nausea/Vomiting/Diarrhea Stated complaint: dehydration/hand cramping Time Seen by Provider: 04/26/19 19:29 Source: patient, family, RN notes reviewed, old records reviewed Mode of arrival: ambulatory Limitations: no limitations - History of Present Illness Initial comments: This is a 75-year-old female injury. Patient does today for evaluation of weakness altered mental status patient is no dementia. Patient unable unable to give history history obtained from patient's family. EMS. Patient admitted persistent nausea vomiting diarrhea no fevers and again no complaints patient does not complain. Patient is altered secondary severe dementia. Patient did not acting appropriately per family MD Complaint: generalized weakness, lack of energy, difficulty walking -: days(s) Location: generalized Severity: moderate Severity scale (1-10): 6 Consistency: constant Worsens with: none Context: recent illness, history of similar Associated Symptoms: confusion, loss of appetite, nausea/vomiting - Related Data Home Medications Medication Instructions Recorded Confirmed Aspirin [Adult Low Dose Aspirin EC] 81 mg PO DAILY 09/28/15 04/27/19 Atorvastatin [Lipitor] 5 mg PO HS 09/28/15 04/27/19 Carvedilol [Coreg] 3.125 mg PO DAILY 09/28/15 04/27/19 Lisinopril [Zestril] 40 mg PO DAILY 09/28/15 04/27/19 Magnesium Oxide [Mag-Ox] 400 mg PO HS 09/28/15 04/27/19 Raloxifene [Evista] 60 mg PO HS 09/28/15 04/27/19 Mirtazapine [Remeron] 15 mg PO HS 05/23/17 04/27/19 Cyanocobalamin (Vitamin B-12) 2,500 mcg PO DAILY 04/27/19 04/27/19 [Vitamin B-12] Donepezil 23mg 23 mg PO HS 04/27/19 04/27/19 Multivitamins, Thera [Multivitamin 1 tab PO DAILY 04/27/19 04/27/19 (formulary)] Previous Rx's Medication Instructions Recorded Cefuroxime [Ceftin] 250 mg PO BID #14 tablet 04/28/19 Insulin Glargine [Lantus] 12 units SQ HS #0 04/28/19 Allergies Allergy/AdvReac Type Severity Reaction Status Date / Time No Known Allergies Allergy Verified 04/26/19 23:21 Review of Systems ROS Statement: Those systems with pertinent positive or pertinent negative responses have been documented in the HPI. ROS Other: All systems not noted in ROS Statement are negative. Past Medical History Past Medical History: Atrial Fibrillation, Dementia, Diabetes Mellitus, Hyperli pidemia, Hypertension, Sleep Apnea/CPAP/BIPAP Additional Past Medical History / Comment(s): wt loss of 183# down to 123# over last year,no appetite,scratches skin frequently causing some sores,has cpap History of Any Multi-Drug Resistant Organisms: None Reported Past Surgical History: No Surgical Hx Reported Additional Past Surgical History / Comment(s): mark cataracts,rt retinal repair Past Anesthesia/Blood Transfusion Reactions: No Reported Reaction Past Psychological History: No Psychological Hx Reported Smoking Status: Never smoker Past Alcohol Use History: None Reported Past Drug Use History: None Reported - Past Family History Mother Family Medical History: Cancer Father Family Medical History: Cancer Sister(s) Family Medical History: CVA/TIA, Dementia General Exam Limitations: no limitations General appearance: alert, in no apparent distress Head exam: Present: atraumatic, normocephalic, normal inspection Eye exam: Present: normal appearance, PERRL, EOMI. Absent: scleral icterus, conjunctival injection, periorbital swelling ENT exam: Present: normal exam, mucous membranes moist Neck exam: Present: normal inspection. Absent: tenderness, meningismus, lymphadenopathy Respiratory exam: Present: normal lung sounds bilaterally. Absent: respiratory distress, wheezes, rales, rhonchi, stridor Cardiovascular Exam: Present: regular rate, normal rhythm, normal heart sounds. Absent: systolic murmur, diastolic murmur, rubs, gallop, clicks GI/Abdominal exam: Present: soft, normal bowel sounds. Absent: distended, tenderness, guarding, rebound, rigid Extremities exam: Present: normal inspection, full ROM, normal capillary refill. Absent: tenderness, pedal edema, joint swelling, calf tenderness Back exam: Present: normal inspection Neurological exam: Present: alert, oriented X3, CN II-XII intact Psychiatric exam: Present: normal affect, normal mood Skin exam: Present: warm, dry, intact, normal color. Absent: rash Course Vital Signs 04/26/19 04/26/19 04/26/19 18:27 22:08 23:16 Temperature 99.8 F H 98.0 F Pulse Rate 81 79 Respiratory 18 18 Rate Blood Pressure 126/85 134/56 O2 Sat by Pulse 97 97 Oximetry - Reevaluation(s) Reevaluation #1: 04/26/19 23:19 Medical records reviewed - Consultations Consultation #1: Dr. Paniagua who is agreeable for admission EKG Findings - EKG Comments: EKG Findings:: EKG shows sinus rhythm rate of 75, CA 144, QRS 76, QTc 453 Medical Decision Making - Medical Decision Making 74 female ER for evaluation significant weakness likely underlying urinary tract infection will treat for IV antibiotics and admit for IV hydration and altered mental status [place] mental status and progression of dementia - Lab Data Result diagrams: 04/26/19 20:03 04/26/19 20:03 Lab Results 04/26/19 04/26/19 04/26/19 Range/Units 12:20 20:03 20:03 WBC 13.8 H (3.8-10.6) k/uL RBC 4.43 (3.80-5.40) m/uL Hgb 13.1 (11.4-16.0) gm/dL Hct 39.6 (34.0-46.0) % MCV 89.3 (80.0-100.0) fL MCH 29.6 (25.0-35.0) pg MCHC 33.1 (31.0-37.0) g/dL RDW 12.8 (11.5-15.5) % Plt Count 211 (150-450) k/uL Neutrophils % 88 % Lymphocytes % 7 % Monocytes % 4 % Eosinophils % 1 % Basophils % 0 % Neutrophils # 12.1 H (1.3-7.7) k/uL Lymphocytes # 1.0 (1.0-4.8) k/uL Monocytes # 0.6 (0-1.0) k/uL Eosinophils # 0.1 (0-0.7) k/uL Basophils # 0.0 (0-0.2) k/uL Sodium 137 (137-145) mmol/L Potassium 4.3 (3.5-5.1) mmol/L Chloride 104 (98-107) mmol/L Carbon Dioxide 25 (22-30) mmol/L Anion Gap 8 mmol/L BUN 12 (7-17) mg/dL Creatinine 0.83 (0.52-1.04) mg/dL Est GFR (CKD-EPI)AfAm 82 (>60 ml/min/1.73 sqM) Est GFR (CKD-EPI)NonAf 71 (>60 ml/min/1.73 sqM) Glucose 205 H (74-99) mg/dL Plasma Lactic Acid Venkat (0.7-2.0) mmol/L Calcium 9.2 (8.4-10.2) mg/dL Phosphorus 3.7 (2.5-4.5) mg/dL Magnesium 1.9 (1.6-2.3) mg/dL Total Bilirubin 1.2 (0.2-1.3) mg/dL AST 27 (14-36) U/L ALT 14 (4-34) U/L Alkaline Phosphatase 98 (38-126) U/L Creatine Kinase 59 (30-135) U/L Troponin I (0.000-0.034) ng/mL Total Protein 7.1 (6.3-8.2) g/dL Albumin 3.8 (3.5-5.0) g/dL Urine Color Yellow Urine Appearance Cloudy H (Clear) Urine pH 5.0 (5.0-8.0) Ur Specific [place] 1.013 (1.001-1.035) Urine Protein Trace H (Negative) Urine Glucose (UA) 3+ H (Negative) Urine Ketones Negative (Negative) Urine Blood Negative (Negative) Urine Nitrite Positive H (Negative) Urine Bilirubin Negative (Negative) Urine Urobilinogen <2.0 (<2.0) mg/dL Ur Leukocyte Esterase Large H (Negative) Urine RBC 5 (0-5) /hpf Urine WBC >182 H (0-5) /hpf Urine WBC Clumps Many H (None) /hpf Ur Squamous Epith Cells 1 (0-4) /hpf Urine Bacteria Many H (None) /hpf Urine Mucus Rare H (None) /hpf Influenza Type A RNA (Not Detectd) Influenza Type B (PCR) (Not Detectd) 04/26/19 04/26/19 04/26/19 Range/Units 20:03 20:18 22:50 WBC (3.8-10.6) k/uL RBC (3.80-5.40) m/uL Hgb (11.4-16.0) gm/dL Hct (34.0-46.0) % MCV (80.0-100.0) fL MCH (25.0-35.0) pg MCHC (31.0-37.0) g/dL RDW (11.5-15.5) % Plt Count (150-450) k/uL Neutrophils % % Lymphocytes % % Monocytes % % Eosinophils % % Basophils % % Neutrophils # (1.3-7.7) k/uL Lymphocytes # (1.0-4.8) k/uL Monocytes # (0-1.0) k/uL Eosinophils # (0-0.7) k/uL Basophils # (0-0.2) k/uL Sodium (137-145) mmol/L Potassium (3.5-5.1) mmol/L Chloride (98-107) mmol/L Carbon Dioxide (22-30) mmol/L Anion Gap mmol/L BUN (7-17) mg/dL Creatinine (0.52-1.04) mg/dL Est GFR (CKD-EPI)AfAm (>60 ml/min/1.73 sqM) Est GFR (CKD-EPI)NonAf (>60 ml/min/1.73 sqM) Glucose (74-99) mg/dL Plasma Lactic Acid [place] 1.0 (0.7-2.0) mmol/L Calcium (8.4-10.2) mg/dL Phosphorus (2.5-4.5) mg/dL Magnesium (1.6-2.3) mg/dL Total Bilirubin (0.2-1.3) mg/dL AST (14-36) U/L ALT (4-34) U/L Alkaline Phosphatase (38-126) U/L Creatine Kinase (30-135) U/L Troponin I <0.012 (0.000-0.034) ng/mL Total Protein (6.3-8.2) g/dL Albumin (3.5-5.0) g/dL Urine Color Urine Appearance (Clear) Urine pH (5.0-8.0) Ur Specific [place] (1.001-1.035) Urine Protein (Negative) Urine Glucose (UA) (Negative) Urine Ketones (Negative) Urine Blood (Negative) Urine Nitrite (Negative) Urine Bilirubin (Negative) Urine Urobilinogen (<2.0) mg/dL Ur Leukocyte Esterase (Negative) Urine RBC (0-5) /hpf Urine WBC (0-5) /hpf Urine WBC Clumps (None) /hpf Ur Squamous Epith Cells (0-4) /hpf Urine Bacteria (None) /hpf Urine Mucus (None) /hpf Influenza Type A RNA Not Detected (Not Detectd) Influenza Type B (PCR) Not Detected (Not Detectd) - Radiology Data Radiology results: report reviewed (CT brain C-spine x-ray and is negative for acute disease), image reviewed Disposition Clinical Impression: Dehydration, UTI (urinary tract infection), Altered mental state Disposition: ADMITTED IP TO THIS HOSP Condition: Good Is patient prescribed a controlled substance at d/c from ED?: No
[2019-04-26 20:21] LABS: Basophils % (A) 0 %; Eosinophils # (A) 0.1 k/uL (0-0.7); Eosinophils % (A) 1 %; HCT 39.6 % (34.0-46.0); HGB 13.1 gm/dL (11.4-16.0); Lymphocytes % (A) 7 %; MCH 29.6 pg (25.0-35.0); MCHC 33.1 g/dL (31.0-37.0); MCV 89.3 fL (80.0-100.0); Mean Platelet Volume 7.7; Monocytes # (A) 0.6 k/uL (0-1.0); Monocytes % (A) 4 %; Neutrophils # (A) 12.1 k/uL (1.3-7.7); Neutrophils % (A) 88 %; Platelet Count 211 k/uL (150-450); RBC 4.43 m/uL (3.80-5.40); RDW 12.8 % (11.5-15.5); WBC 13.8 k/uL (3.8-10.6)
[2019-04-26 20:27] LABS: Albumin 3.8 g/dL (3.5-5.0); Calcium 9.2 mg/dL (8.4-10.2); Magnesium 1.9 mg/dL (1.6-2.3); Phosphorus 3.7 mg/dL (2.5-4.5); Potassium 4.3 mmol/L (3.5-5.1); Total Bilirubin 1.2 mg/dL (0.2-1.3); Total Protein 7.1 g/dL (6.3-8.2)
--- NOTE | 2019-04-26 21:12 | CT ---
EXAMINATION TYPE: CT brain kelsey patel con DATE OF EXAM: 04/26/2019 COMPARISON: None HISTORY: Weakness. CT DLP: 1402.9 mGycm, Automated exposure control for dose reduction was used. CONTRAST: Patient injected with 0 mL of Isovue 300. CT of the brain is performed utilizing 3 mm thick sections through the posterior fossa and 3 mm thick sections through the remaining calvarium. Study is performed within 24 hours of arrival to the hospital. No abnormal hyperdensity is present to suggest an acute intracranial hemorrhage. No mass lesion is evident. No acute infarcts are evident. Periventricular white matter hypodensity is present compatible with c hronic white matter ischemic changes. Ventricles and sulci are appropriate for the patient age. Paranasal sinuses and mastoid air cells within the [id number] are clear. Right septal deviation is noted IMPRESSIONS: 1. Atrophy with periventricular white matter ischemic type changes. CT cervical spine. COMPARISON: None CT of the cervical spine is performed in the axial plane at 2 mm thick sections. Reconstructed image s in the coronal, and sagittal plane are reviewed on the computer. No acute fractures are evident. Vertebral body alignment is normal. Diffuse narrowing of the disc height to the mid to lower cervical spine. Vertebral body heights are preserved. Posterior endplate spurring is present contributing to spinal canal narrowing C6-7, C5-6 and C4-5. Th is is greatest at C5-6 without AP spinal canal stenosis present. No neural foraminal stenosis is evident. IMPRESSIONS: 1. Degenerative disc changes with endplate spurring greatest at C5-6. 2. No acute posttraumatic changes.
--- NOTE | 2019-04-26 21:13 | XR ---
EXAMINATION TYPE: XR hand complete RT DATE OF EXAM: 04/26/2019 COMPARISON: None HISTORY: Weakness trigger finger TECHNIQUE: Three-view right hand FINDINGS: There is flexion of the ring finger. The ring is present during the exam Structures are osteopenic. Joint spaces appear preserved. No acute fractures are evident. Soft tissue s appear within normal limits. IMPRESSION: 1. Osteopenia. 2. No acute osseous abnormality. 3. Flexion of the ring finger
--- NOTE | 2019-04-26 21:14 | XR ---
EXAMINATION TYPE: XR abdomen acute w cxr DATE OF EXAM: 04/26/2019 COMPARISON: None HISTORY: Weakness diarrhea TECHNIQUE: Chest is examined in the frontal projection. Abdomen is examined in the upright and supine views. FINDINGS: The heart size is normal. The pulmonary vasculature is normal. Mild infiltrate or pleural p laquing may be at the left lower lung field. No free air is under the diaphragm. Nonspecific bowel gas is present. No mass effect is evident. Psoa s margins are normal. IMPRESSION: 1. Nonspecific acute abdominal series
[2019-04-26] MEDS ORDERED: DIAZEPAM 5 MG/ML 2 ML INJ IVP STA (22:13)
[2019-04-27 01:24] LABS: Glucose,Whole Blood 189 mg/dL (75-99)
[2019-04-27 07:17] LABS: Glucose,Whole Blood 159 mg/dL (75-99)
[2019-04-27] MEDS: CYANOCOBALAMIN 500 MCG TAB PO SCH (09:38)
[2019-04-27] MEDS: CARVEDILOL 3.125 MG TAB PO SCH (09:38)
[2019-04-27] MEDS: ASPIRIN 81 MG PO SCH (09:38)
[2019-04-27] MEDS: SODIUM CHLORIDE 0.9% 1,000 ML IV SCH ×2 (09:39→20:36)
[2019-04-27 10:50] VITALS: RESP 15
[2019-04-27 11:57] LABS: Glucose,Whole Blood 210 mg/dL (75-99)
[2019-04-27] MEDS ORDERED: ALPRAZolam 0.25 MG TAB PO STA (12:27)
[2019-04-27 12:57] LABS: Appearance,Urine Cloudy (Clear); Bacteria,Urine Many /hpf; Bilirubin,Urine Negative (Negative); Blood,Urine Negative (Negative); Color,Urine Yellow; Glucose,Urine (UA) 3+ (Negative); Ketones,Urine Negative (Negative); Leukocyte Esterase,Urine Large (Negative); Mucus,Urine Rare /hpf; Nitrite,Urine Positive (Negative); Protein,Urine Trace (Negative); RBC,Urine 5 /hpf (0-5); Specific Gravity,Urine 1.013 (1.001-1.035); Squamous Epithelial Cell,Urine 1 /hpf (0-4); Urobilinogen,Urine <2.0 mg/dL (<2.0); WBC,Urine >182 /hpf (0-5)
[2019-04-27] MEDS: INSULIN ASPART (NovoLOG) 100 UNIT/ML VIAL SQ SCH ×3 (13:05→19:32)
--- NOTE | 2019-04-27 14:51 | P.CNOR ---
History of Present Illness - [facility] Consult date: 04/27/19 Consult reason: other History of present illness: Patient is pleasant 74 yo female seen at bedside this am in consultation for contracture of right ring finger. Family is at bedside. She states her right ring finger became stuck in flexed position possibly yesterday. She denies trauma or injury. She does not recall previous episodes of her finger being stuck in the flexed position. She denies pain currently or numbness or tingling. She has no other complaints. Past Medical History Past Medical History: Atrial Fibrillation, Dementia, Diabetes Mellitus, Hyperlipidemia, Hypertension, Sleep Apnea/CPAP/BIPAP Additional Past Medical History / Comment(s): wt loss of 183# down to 123# over year in 2018, no appetite, scratches skin frequently causing some sores,has cpap History of Any Multi-Drug Resistant Organisms: None Reported Past Surgical History: No Surgical Hx Reported Additional Past Surgical History / Comment(s): mark cataracts,rt retinal repair Past Anesthesia/Blood Transfusion Reactions: No Reported Reaction Past Psychological History: No Psychological Hx Reported Smoking Status: Never smoker Past Alcohol Use History: None Reported Past Drug Use History: None Reported - Past Family History Mother Family Medical History: Cancer Father Family Medical History: Cancer Sister(s) Family Medical History: CVA/TIA, Dementia Medications and Allergies Home Medications Medication Instructions Recorded Confirmed Type Aspirin [Adult Low Dose Aspirin EC] 81 mg PO DAILY 09/28/15 04/27/19 History Atorvastatin [Lipitor] 5 mg PO HS 09/28/15 04/27/19 History Carvedilol [Coreg] 3.125 mg PO DAILY 09/28/15 04/27/19 History Insulin Glargine [Lantus] 18 units SQ HS 09/28/15 04/27/19 History Lisinopril [Zestril] 40 mg PO DAILY 09/28/15 04/27/19 History Magnesium Oxide [Mag-Ox] 400 mg PO HS 09/28/15 04/27/19 History Raloxifene [Evista] 60 mg PO HS 09/28/15 04/27/19 History Mirtazapine [Remeron] 15 mg PO HS 05/23/17 04/27/19 History Cyanocobalamin (Vitamin B-12) 2,500 mcg PO DAILY 04/27/19 04/27/19 History [Vitamin B-12] Donepezil 23mg 23 mg PO HS 04/27/19 04/27/19 History Multivitamins, Thera [Multivitamin 1 tab PO DAILY 04/27/19 04/27/19 History (formulary)] Pioglitazone [Actos] 30 mg PO DAILY 04/27/19 04/27/19 History Repaglinide [Prandin] 3 mg PO HS 04/27/19 04/27/19 History Repaglinide [Prandin] 5 mg PO BID@0900,1400 04/27/19 04/27/19 History Allergies Allergy/AdvReac Type Severity Reaction Status Date / Time No Known Allergies Allergy Verified 04/26/19 23:21 Physical Examination Inspection of the right hand shows the right ring finger fixed in a flexed position at the IP and PIP joints. There is no bony deformity, wounds, echymosis, erythema or swelling. The finger is nontender. There is palpable thickening at the A-1 hardik. Perfusion is adequate with brisk capillary refill. Motor and sensation intact in all digits. She cannot actively extend the right ring finger. No pain or difficulty with ROM with remaining digits and wrist. Results xrays of the right hand are negative for fracture dislocation - Labs Labs: Abnormal Lab Results - Last 24 Hours (Table) 04/26/19 04/26/19 04/26/19 Range/Units 12:20 20:03 20:03 WBC 13.8 H (3.8-10.6) k/uL Neutrophils # 12.1 H (1.3-7.7) k/uL Glucose 205 H (74-99) mg/dL POC Glucose (mg/dL) (75-99) mg/dL Urine Appearance Cloudy H (Clear) Urine Protein Trace H (Negative) Urine Glucose (UA) 3+ H (Negative) Urine Nitrite Positive H (Negative) Ur Leukocyte Esterase Large H (Negative) Urine WBC >182 H (0-5) /hpf Urine WBC Clumps Many H (None) /hpf Urine Bacteria Many H (None) /hpf Urine Mucus Rare H (None) /hpf 04/27/19 04/27/19 04/27/19 Range/Units 01:21 07:05 11:46 WBC (3.8-10.6) k/uL Neutrophils # (1.3-7.7) k/uL Glucose (74-99) mg/dL POC Glucose (mg/dL) 189 H 159 H 210 H (75-99) mg/dL Urine Appearance (Clear) Urine Protein (Negative) Urine Glucose (UA) (Negative) Urine Nitrite (Negative) Ur Leukocyte Esterase (Negative) Urine WBC (0-5) /hpf Urine WBC Clumps (None) /hpf Urine Bacteria (None) /hpf Urine Mucus (None) /hpf H & H 04/26/19 Range/Units 20:03 Hgb 13.1 (11.4-16.0) gm/dL Hct 39.6 (34.0-46.0) % Result Diagrams: 04/26/19 20:03 04/26/19 20:03 - Diagnostic results Wrist/Hand x-ray: report reviewed, image reviewed Assessment and Plan (1) Trigger finger Narrative/Plan: Using gentle pressure the right ring finger was passively extended to free the trigger finger and resume its normal anatomical state without complication. I advised her and her family on self reducing should it recur. She may follow up in office upon discharge for possible corticosteroid injection vs consideration for surgical intervention. Current Visit: Yes Status: Acute Priority: Medium Code(s): M65.30 - TRIGGER FINGER, UNSPECIFIED FINGER SNOMED Code(s): 497887148 Time with Patient: Less than 30
--- NOTE | 2019-04-27 15:04 | P.HPIM ---
History of Present Illness H&P Date: 04/27/19 Chief Complaint: Weakness, nausea vomiting diarrhea This is a 74-year-old female patient of Dr. Verdin with past medical history of atrial fibrillation, dementia, diabetes mellitus type 2, hypertension, hyperlipidemia, obstructive sleep apnea. Patient resides at home with her . Yesterday her daughter was with her and she was having diarrhea all day. She was getting up to the bathroom to wash up and passed out. She appeared has not been eating or drinking. No nausea or vomiting. No recent antibiotic use. Patient has been very tired. Patient also had some mental status changes. Patient also had contracture of her right and fourth fingers that was noted after the fall. Patient came into [facility] emergency center for evaluation. CAT scan of the brain showed no acute findings. Hand x-ray showed osteopenia. Abdominal x-rays was nonspecific. Patient was afebrile, blood pressure 126/85, heart rate 81, pulse ox 97% on room air. WBC 13.8, hemoglobin 13.1, blood sugar 205, electrolytes BUN and creatinine, liver function tests all within normal limits. Troponin negative. Lactic acid 1.0. Influenza testing not detected. Patient was diagnosed with UTI. Catheter was attempted in the ER but patient was combative and family refused to have the catheter placed. They are agreeable to try to obtain a urine specimen on the floor. Consult with orthopedics added. Continue IV fluids and possible discharge by tomorrow. Review of Systems ROS unobtainable: due to mental status Past Medical History Past Medical History: Atrial Fibrillation, Dementia, Diabetes Mellitus, Hyperlipidemia, Hypertension, Sleep Apnea/CPAP/BIPAP Additional Past Medical History / Comment(s): wt loss of 183# down to 123# over year in 2018, no appetite, scratches skin frequently causing some sores,has cpap History of Any Multi-Drug Resistant Organisms: None Reported Past Surgical History: No Surgical Hx Reported Additional Past Surgical History / Comment(s): mark cataracts,rt retinal repair Past Anesthesia/Blood Transfusion Reactions: No Reported Reaction Past Psychological History: No Psychological Hx Reported Smoking Status: Never smoker Past Alcohol Use History: None Reported Additional Past Alcohol Use History / Comment(s): Patient is a lifelong nonsmoker, no marijuana, illicit drug use, alcohol use. Patient lives at home with her . Past Drug Use History: None Reported - Past Family History Mother Family Medical History: Cancer Additional Family Medical History / Comment(s): Mother at age 57 from uter ine cancer. Father Family Medical History: Cancer Additional Family Medical History / Comment(s): Father in his 70s from cancer with metastatic disease to the brain. Sister(s) Family Medical History: CVA/TIA, Dementia Additional Family Medical History / Comment(s): Patient has 2 sisters. One sister has dementia and one sister with breast cancer. Patient has 2 brothers with no major medical problems. Patient has 2 daughters and one has diabetes and one son with no major medical problems. Medications and Allergies Home Medications Medication Instructions Recorded Confirmed Type Aspirin [Adult Low Dose Aspirin EC] 81 mg PO DAILY 09/28/15 04/27/19 History Atorvastatin [Lipitor] 5 mg PO HS 09/28/15 04/27/19 History Carvedilol [Coreg] 3.125 mg PO DAILY 09/28/15 04/27/19 History Insulin Glargine [Lantus] 18 units SQ HS 09/28/15 04/27/19 History Lisinopril [Zestril] 40 mg PO DAILY 09/28/15 04/27/19 History Magnesium Oxide [Mag-Ox] 400 mg PO HS 09/28/15 04/27/19 History Raloxifene [Evista] 60 mg PO HS 09/28/15 04/27/19 History Mirtazapine [Remeron] 15 mg PO HS 05/23/17 04/27/19 History Cyanocobalamin (Vitamin B-12) 2,500 mcg PO DAILY 04/27/19 04/27/19 History [Vitamin B-12] Donepezil 23mg 23 mg PO HS 04/27/19 04/27/19 History Multivitamins, Thera [Multivitamin 1 tab PO DAILY 04/27/19 04/27/19 History (formulary)] Pioglitazone [Actos] 30 mg PO DAILY 04/27/19 04/27/19 History Repaglinide [Prandin] 3 mg PO HS 04/27/19 04/27/19 History Repaglinide [Prandin] 5 mg PO BID@0900,1400 04/27/19 04/27/19 History Allergies Allergy/AdvReac Type Severity Reaction Status Date / Time No Known Allergies Allergy Verified 04/26/19 23:21 Physical Exam Vitals: Vital Signs Temp Pulse Resp BP Pulse Ox 04/26/19 23:16 98.0 F 04/26/19 22:08 79 18 134/56 97 04/26/19 18:27 99.8 F H 81 18 126/85 97 Intake and Output 04/26/19 04/27/19 04/27/19 22:59 06:59 14:59 Other: Weight 87.09 kg 87.09 kg Gen: This is a 74-year-old female. HEENT: Head is atraumatic, normocephalic. Pupils equal, round. Sclerae is anicteric. NECK: Supple. No JVD. No lymphadenopathy. No thyromegaly. LUNGS: Clear to auscultation. No wheezes or rhonchi. No intercostal retractions. HEART: Regular rate and rhythm. No murmur. ABDOMEN: Soft. Bowel sounds are present. No masses. No tenderness. EXTREMITIES: No pedal edema. No calf tenderness. NEUROLOGICAL: Patient is awake, alert and oriented x3. Cranial nerves 2 through 12 are grossly intact. Results CBC & Chem 7: 04/26/19 20:03 04/26/19 20:03 Labs: Abnormal Lab Results - Last 24 Hours (Table) 04/26/19 04/26/19 04/27/19 Range/Units 20:03 20:03 01:21 WBC 13.8 H (3.8-10.6) k/uL Neutrophils # 12.1 H (1.3-7.7) k/uL Glucose 205 H (74-99) mg/dL POC Glucose (mg/dL) 189 H (75-99) mg/dL 04/27/19 Range/Units 07:05 WBC (3.8-10.6) k/uL Neutrophils # (1.3-7.7) k/uL Glucose (74-99) mg/dL POC Glucose (mg/dL) 159 H (75-99) mg/dL Thrombosis Risk Factor Assmnt - DVT/VTE Prophylaxis DVT/VTE Prophylaxis: Pharmacologic Prophylaxis ordered - Choose All That Apply Each Factor Represents 1 point: Obesity (BMI >25) Each Risk Factor Represents 2 Points: Age 61-74 years Thrombosis Risk Factor Assessment Total Risk Factor Score: 3 Thrombosis Risk Factor Assessment Level: Moderate Risk Assessment and Plan Plan: 1. Dehydration secondary to diarrhea. Continue IV fluids at 100 mL per hour. Stool to be collected for C. difficile toxin. 2. Possible urinary tract infection. Obtain urinalysis and urine culture. Continue ceftriaxone for now. 3. Metabolic encephalopathy secondary to dehydration and underlying dementia, stable. Patient is back to baseline. 4. Hyperlipidemia. Continue Lipitor. 5. Hypertension. Continue Coreg. 6. History of paroxysmal atrial fibrillation, in normal sinus. Continue Coreg. 7. Dementia. Continue Aricept. 8. DVT prophylaxis. Lovenox. 9. GI prophylaxis. Pepcid. CODE STATUS: DO NOT RESUSCITATE Patient will be admitted to the hospital for a minimum of 2 night stay. Discharge plan: Most likely return home Impression and plan of care have been directed as dictated by the signing physician. Pati Tillman nurse practitioner acting as scribe for signing physician.
[2019-04-27] MEDS ORDERED: risperiDONE 0.25 MG TAB PO STA (17:33)
[2019-04-27 18:54] VITALS: PULSE 79
[2019-04-27 19:07] LABS: Glucose,Whole Blood 196 mg/dL (75-99)
[2019-04-27] MEDS ORDERED: ATORVASTATIN 10 MG TAB PO SCH (21:00)
[2019-04-27] MEDS ORDERED: DONEPEZIL 10 MG TAB PO SCH (21:00)
[2019-04-27] MEDS ORDERED: MAGNESIUM OXIDE 400 MG TAB PO SCH (21:00)
[2019-04-28] MEDS: SODIUM CHLORIDE 0.9% 1,000 ML IV SCH (03:40)
[2019-04-28 06:57] LABS: Glucose,Whole Blood 104 mg/dL (75-99)
[2019-04-28] MEDS: INSULIN ASPART (NovoLOG) 100 UNIT/ML VIAL SQ SCH (07:13)
[2019-04-28 07:53] VITALS: BP 117/73; TEMP 98.7
[2019-04-28] MEDS ORDERED: FAMOTIDINE 20 MG TAB PO SCH (09:00)
[2019-04-28] MEDS ORDERED: ENOXAPARIN 40 MG/0.4 ML SYRINGE SQ SCH (09:00)
[2019-04-28] MEDS: CARVEDILOL 3.125 MG TAB PO SCH (10:03)
[2019-04-28] MEDS: CYANOCOBALAMIN 500 MCG TAB PO SCH (10:03)
[2019-04-28] MEDS: ASPIRIN 81 MG PO SCH (10:03)
--- NOTE | 2019-04-30 16:00 | P.DS ---
Providers Date of admission: 04/27/19 00:52 Expected date of discharge: 04/28/19 Attending physician: Houston Paniagua Consults: 04/27/19 08:21 Consult Physician Routine Consulting Provider: Dallin Mahmood Consult Reason/Comments: rt 4th finger contracture, sudden onset Do you want consulting provider notified?: Yes Primary care physician: Staci Verdin [facility] Course: This is a 74-year-old female patient of Dr. Verdin with past medical history of atrial fibrillation, dementia, diabetes mellitus type 2, hypertension, hyperlipidemia, obstructive sleep apnea. Patient resides at home with her . Yesterday her daughter was with her and she was having diarrhea all day. She was getting up to the bathroom to wash up and passed out. She appeared has not been eating or drinking. No nausea or vomiting. No recent antibiotic use. Patient has been very tired. Patient also had some mental status changes. Patient also had contracture of her right and fourth fingers that was noted after the fall. Patient came into [facility] emergency center for evaluation. CAT scan of the brain showed no acute findings. Hand x-ray showed osteopenia. Abdominal x-rays was nonspecific. Patient was afebrile, blood pressure 126/85, heart rate 81, pulse ox 97% on room air. WBC 13.8, hemoglobin 13.1, blood sugar 205, electrolytes BUN and creatinine, liver function tests all within normal limits. Troponin negative. Lactic acid 1.0. Influenza testing not detected. Patient was diagnosed with UTI. Catheter was attempted in the ER but patient was combative and family refused to have the catheter placed. They are agreeable to try to obtain a urine specimen on the floor. Consult with orthopedics added. Continue IV fluids and possible discharge by tomorrow. 04/28: Patient has been seen by orthopedics for trigger finger improved after massage and plan for follow-up in the office. Patient was quite confused during the night and stayed at the bedside. Urinalysis was nitrate positive, leukoesterase large, WBCs greater than 182, clumps many, bacteria many. Stool history afternoon was performed. Patient denies any abdominal pain or ten derness. She has only eaten a part of a sandwich since admission. She is afebrile, heart rate 79, blood pressure 134/76, pulse ox 99% on room air. Has been given option of staying in waiting for urine culture report or discharge home. He prefers to take patient home due to the underlying dementia. Patient will be discharged home today in stable condition. Urine culture finalized with 10,000-49,000 colonies skin sterling. Discharge diagnoses: 1. Dehydration secondary to diarrhea. 2. Possible urinary tract infection. 3. Metabolic encephalopathy secondary to dehydration and underlying dementia, stable. 4. Hyperlipidemia. 5. Hypertension. 6. History of paroxysmal atrial fibrillation, in normal sinus. 7. Dementia. Discharge plan: home Impression and plan of care have been directed as dictated by the signing physician. Pati Tillman nurse practitioner acting as scribe for signing physician. Patient Condition at Discharge: Good Plan - Discharge Summary New Discharge Prescriptions: New Cefuroxime [Ceftin] 250 mg PO BID #14 tablet Continue Aspirin [Adult Low Dose Aspirin EC] 81 mg PO DAILY Raloxifene [Evista] 60 mg PO HS Lisinopril [Zestril] 40 mg PO DAILY Magnesium Oxide [Mag-Ox] 400 mg PO HS Atorvastatin [Lipitor] 5 mg PO HS Carvedilol [Coreg] 3.125 mg PO DAILY Mirtazapine [Remeron] 15 mg PO HS Multivitamins, Thera [Multivitamin (formulary)] 1 tab PO DAILY Donepezil 23mg 23 mg PO HS Cyanocobalamin (Vitamin B-12) [Vitamin B-12] 2,500 mcg PO DAILY Changed Insulin Glargine [Lantus] 12 units SQ HS #0 Discontinued Pioglitazone [Actos] 30 mg PO DAILY Repaglinide [Prandin] 3 mg PO HS Repaglinide [Prandin] 5 mg PO BID@0900,1400 Discharge Medication List Aspirin [Adult Low Dose Aspirin EC] 81 mg PO DAILY 09/28/15 [History] Atorvastatin [Lipitor] 5 mg PO HS 09/28/15 [History] Carvedilol [Coreg] 3.125 mg PO DAILY 09/28/15 [History] Lisinopril [Zestril] 40 mg PO DAILY 09/28/15 [History] Magnesium Oxide [Mag-Ox] 400 mg PO HS 09/28/15 [History] Raloxifene [Evista] 60 mg PO HS 09/28/15 [History] Mirtazapine [Remeron] 15 mg PO HS 05/23/17 [History] Cyanocobalamin (Vitamin B-12) [Vitamin B-12] 2,500 mcg PO DAILY 04/27/19 [History] Donepezil 23mg 23 mg PO HS 04/27/19 [History] Multivitamins, Thera [Multivitamin (formulary)] 1 tab PO DAILY 04/27/19 [History] Cefuroxime [Ceftin] 250 mg PO BID #14 tablet 04/28/19 [Rx] Insulin Glargine [Lantus] 12 units SQ HS #0 04/28/19 [Rx] Follow up Appointment(s)/Referral(s): Staci Verdin MD [Primary Care Provider] - 1 Week (office closed at time of discharge Please call to make appointment) Baudilio Bonilla DO [Medical Doctor] - 1 Week (office closed at time of discharge. Please call to make appointment) Patient Instructions/Handouts: Urinary Tract Infection in Women (DC) Activity/Diet/Wound Care/Special Instructions: Hold Prandin and Actos until seen by Dr. Verdin Discharge Disposition: HOME SELF-CARE
== END 2019-04-28 11:13 | disposition home or self-care (01) ==
LOC: EC 17:58 → 4SSUR 04-27 00:52
PROVIDERS: ADMIT Internal Medicine; ATTEND Internal Medicine
DX: E86.0 Dehydration (principal); R19.7 Diarrhea, unspecified; G93.41 Metabolic encephalopathy; I48.0 Paroxysmal atrial fibrillation; F03.90 Unspecified dementia, unspecified severity, without behavioral disturbance, psychotic disturbance, mood disturbance, and anxiety; E11.9 Type 2 diabetes mellitus without complications; E78.5 Hyperlipidemia, unspecified; I10 Essential (primary) hypertension; M65.341 Trigger finger, right ring finger; M85.841 Other specified disorders of bone density and structure, right hand; G47.30 Sleep apnea, unspecified; M47.812 Spondylosis without myelopathy or radiculopathy, cervical region; G31.9 Degenerative disease of nervous system, unspecified; Z99.89 Dependence on other enabling machines and devices; Z98.42 Cataract extraction status, left eye; Z98.41 Cataract extraction status, right eye; Z79.82 Long term (current) use of aspirin; Z79.899 Other long term (current) drug therapy; Z82.3 Family history of stroke; Z80.8 Family history of malignant neoplasm of other organs or systems; Z82.0 Family history of epilepsy and other diseases of the nervous system
CPT/HCPCS: 96365 ×2; 96361; 96375; 99285; 36415; 93005; 80053; 82550; 83605; 83735; 84100; 84484; 85025; 81001; 87086; 87502; 74022; 73130; 72125; 70450; G0378 ×2; J3360; J2405; J0696 ×2

== ENCOUNTER 2019-05-01 22:41 | Inpatient (IN) | payer MEDICARE ==
--- NOTE | 2019-05-01 22:56 | ED ---
Fall HPI - General Stated Complaint: Fall-Hip Pain Time Seen by Provider: 05/01/19 22:45 Source: EMS Mode of arrival: EMS - History of Present Illness Initial Comments: Ada is a pleasantly demented 74-year-old female who is brought to the ER today by EMS for evaluation of right hip pain. Patient provides minimal history however her at bedside states that she was in the home with them when she told them she was going to go home to see her , she then began to walk out of the garage. She has very poor vision and didn't see the steps. She misstepped and fell. They attempted to help her up but she was complaining of pain in her right hip so EMS was called. She fell down one step into the garage. She did not hit her head she had no loss of consciousness. MD Complaint: fall -: minutes(s) Fall From: standing When Fall Occurred: 1 hour LEAD NURSE Fall Witnessed: yes, by family Place Fall Occurred: home Loss of Consciousness: none Prolonged Down Time?: no Symptoms Prior to Fall: none Location - Extremities: Right: Thigh Severity: severe - Related Data Home Medications Medication Instructions Recorded Confirmed Aspirin [Adult Low Dose Aspirin EC] 81 mg PO DAILY 09/28/15 04/27/19 Atorvastatin [Lipitor] 5 mg PO HS 09/28/15 04/27/19 Carvedilol [Coreg] 3.125 mg PO DAILY 09/28/15 04/27/19 Lisinopril [Zestril] 40 mg PO DAILY 09/28/15 04/27/19 Magnesium Oxide [Mag-Ox] 400 mg PO HS 09/28/15 04/27/19 Raloxifene [Evista] 60 mg PO HS 09/28/15 04/27/19 Mirtazapine [Remeron] 15 mg PO HS 05/23/17 04/27/19 Cyanocobalamin (Vitamin B-12) 2,500 mcg PO DAILY 04/27/19 04/27/19 [Vitamin B-12] Donepezil 23mg 23 mg PO HS 04/27/19 04/27/19 Multivitamins, Thera [Multivitamin 1 tab PO DAILY 04/27/19 04/27/19 (formulary)] Previous Rx's Medication Instructions Recorded Cefuroxime [Ceftin] 250 mg PO BID #14 tablet 04/28/19 Insulin Glargine [Lantus] 12 units SQ HS #0 04/28/19 Allergies Allergy/AdvReac Type Severity Reaction Status Date / Time No Known Allergies Allergy Verified 05/01/19 22:53 Review of Systems ROS Statement: Those systems with pertinent positive or pertinent negative responses have been documented in the HPI. ROS Other: All systems not noted in ROS Statement are negative. Past Medical History Past Medical History: Atrial Fibrillation, Dementia, Diabetes Mellitus, Hyperlipidemia, Hypertension, Sleep Apnea/CPAP/BIPAP Additional Past Medical History / Comment(s): wt loss of 183# down to 123# over last year,no appetite,scratches skin frequently causing some sores,has cpap History of Any Multi-Drug Resistant Organisms: None Reported Past Surgical History: No Surgical Hx Reported Additional Past Surgical History / Comment(s): mark cataracts,rt retinal repair Past Anesthesia/Blood Transfusion Reactions: No Reported Reaction Past Psychological History: No Psychological Hx Reported Smoking Status: Never smoker Past Alcohol Use History: None Reported Past Drug Use History: None Reported - Past Family History Mother Family Medical History: Cancer Additional Family Medical History / Comment(s): Mother at age 57 from uterine cancer. Father Family Medical History: Cancer Additional Family Medical History / Comment(s): Father in his 70s from cancer with metastatic disease to the brain. Sister(s) Family Medical History: CVA/TIA, Dementia Additional Family Medical History / Comment(s): Patient has 2 sisters. One sister has dementia and one sister with breast cancer. Patient has 2 brothers with no major medical problems. Patient has 2 daughters and one has diabetes and one son with no major medical problems. General Exam - General Exam Comments Initial Comments: Physical Exam GENERAL: Patient is well-developed and well-nourished. Patient is nontoxic and well-hydrated Appears uncomfortable HENT: Normocephalic, Atraumatic. EYES: PERRL, EOMI PULMONARY: Unlabored respirations. No audible rales rhonchi or wheezing was noted. CARDIOVASCULAR: There is a regular rate and rhythm without any murmurs gallops or rubs. ABDOMEN: Soft and nontender with normal bowel sounds. SKIN: Skin is clear with no lesions or rashes and otherwise unremarkable. : Deferred NEUROLOGIC: Alert to self, at baseline per MUSCULOSKELETAL: Decreased range of motion right hip secondary to pain, right leg minimally shortened compared the left PSYCHIATRIC: Pleasantly demented Limitations: altered mental status Course Vital Signs 05/01/19 05/02/19 22:53 00:15 Temperature 97.9 F Pulse Rate 71 62 Respiratory 18 18 Rate Blood Pressure 103/67 140/66 O2 Sat by Pulse 99 94 L Oximetry Medical Decision Making - Medical Decision Making Patient was seen and evaluated upon arrival to the emergency department. A 74-year-old patient history of dementia and rhythm mechanical fall down one step. His been unable to bear weight or ambulate since that time. Physical exam the right leg is shortened and range of motion is limited by pain. X-rays and trauma workup were ordered. X-rays confirmed a right IT fracture. Labs are otherwise unremarkable. Full catheter was placed for patient comfort. Per family's request angiolytics were given prior to catheter placement. Results were discussed with patient and family at bedside who agree with plan for admission. Patient care was discussed with her primary care physician Dr. Copeland who accepts the admission with a consult to orthopedics for repair - Lab Data Result diagrams: 05/01/19 23:10 05/01/19 23:10 Lab Results 05/01/19 05/01/19 05/01/19 Range/Units 23:10 23:10 23:10 WBC 6.7 (3.8-10.6) k/uL RBC 3.75 L (3.80-5.40) m/uL Hgb 11.5 (11.4-16.0) gm/dL Hct 33.7 L (34.0-46.0) % MCV 90.0 (80.0-100.0) fL MCH 30.7 (25.0-35.0) pg MCHC 34.1 (31.0-37.0) g/dL RDW 12.8 (11.5-15.5) % Plt Count 170 (150-450) k/uL Neutrophils % 76 % Lymphocytes % 15 % Monocytes % 5 % Eosinophils % 2 % Basophils % 1 % Neutrophils # 5.1 (1.3-7.7) k/uL Lymphocytes # 1.0 (1.0-4.8) k/uL Monocytes # 0.3 (0-1.0) k/uL Eosinophils # 0.1 (0-0.7) k/uL Basophils # 0.0 (0-0.2) k/uL PT 10.8 (9.0-12.0) sec INR 1.0 (<1.2) APTT 19.7 L (22.0-30.0) sec Sodium 139 (137-145) mmol/L Potassium 4.1 (3.5-5.1) mmol/L Chloride 107 (98-107) mmol/L Carbon Dioxide 26 (22-30) mmol/L Anion Gap 6 mmol/L BUN 11 (7-17) mg/dL Creatinine 0.63 (0.52-1.04) mg/dL Est GFR (CKD-EPI)AfAm >90 (>60 ml/min/1.73 sqM) Est GFR (CKD-EPI)NonAf 90 (>60 ml/min/1.73 sqM) Glucose 240 H (74-99) mg/dL Calcium 8.9 (8.4-10.2) mg/dL Total Bilirubin 1.0 (0.2-1.3) mg/dL AST 23 (14-36) U/L ALT 13 (4-34) U/L Alkaline Phosphatase 73 (38-126) U/L Total Protein 6.6 (6.3-8.2) g/dL Albumin 3.6 (3.5-5.0) g/dL Disposition Clinical Impression: Fall, Fracture, intertrochanteric, right femur, Dementia Disposition: ADMITTED IP TO THIS [facility] Condition: Serious
[2019-05-01 23:33] LABS: Basophils % (A) 1 %; Eosinophils # (A) 0.1 k/uL (0-0.7); Eosinophils % (A) 2 %; HCT 33.7 % (34.0-46.0); HGB 11.5 gm/dL (11.4-16.0); Lymphocytes % (A) 15 %; MCH 30.7 pg (25.0-35.0); MCHC 34.1 g/dL (31.0-37.0); Mean Platelet Volume 8.5; Monocytes # (A) 0.3 k/uL (0-1.0); Monocytes % (A) 5 %; Neutrophils # (A) 5.1 k/uL (1.3-7.7); Neutrophils % (A) 76 %; Platelet Count 170 k/uL (150-450); RBC 3.75 m/uL (3.80-5.40); RDW 12.8 % (11.5-15.5); WBC 6.7 k/uL (3.8-10.6)
--- NOTE | 2019-05-01 23:42 | XR ---
EXAMINATION TYPE: XR Hip RT and AP Pelvis DATE OF EXAM: 05/01/2019 COMPARISON: 04/26/2019 HISTORY: Fall. Hip pain. TECHNIQUE: 3 views FINDINGS: Pelvic ring is intact. There is an acute comminuted fracture intertrochanteric right femur. There is no dislocation. Sacroiliac joints appear intact. IMPRESSION: Acute intertrochanteric fracture right femur.
--- NOTE | 2019-05-01 23:43 | XR ---
EXAMINATION TYPE: XR chest 1V DATE OF EXAM: 05/01/2019 COMPARISON: 04/26/2019 HISTORY: Hip pain TECHNIQUE: Single view FINDINGS: Heart is normal. Lungs are clear of infiltrate. There is no heart failure. Costophrenic ang les are clear. Bony thorax is intact. IMPRESSION: No active cardiopulmonary disease. No change.
[2019-05-01] MEDS ORDERED: NALOXONE 0.4 MG/ML 1 ML VIAL IV PRN (23:45)
[2019-05-01] MEDS ORDERED: ONDANSETRON 4 MG/2 ML VIAL IVP PRN (23:45)
[2019-05-01] MEDS ORDERED: LORazepam 2 MG/ML INJ IV PRN (23:45)
[2019-05-01 23:56] LABS: Prothrombin Time 10.8 sec (9.0-12.0)
[2019-05-02 00:01] LABS: ALT 13 U/L (4-34); AST 23 U/L (14-36); African American GFR (CKD) >90 (>60 ml/min/1.73 sqM); Albumin 3.6 g/dL (3.5-5.0); Alkaline Phosphatase 73 U/L (38-126); Anion Gap 6 mmol/L; Blood Urea Nitrogen 11 mg/dL (7-17); Calcium 8.9 mg/dL (8.4-10.2); Carbon Dioxide 26 mmol/L (22-30); Chloride 107 mmol/L (98-107); Glucose 240 mg/dL (74-99); Non-African American GFR(CKD) 90 (>60 ml/min/1.73 sqM); Potassium 4.1 mmol/L (3.5-5.1); Sodium 139 mmol/L (137-145); Total Protein 6.6 g/dL (6.3-8.2)
[2019-05-02] MEDS ORDERED: DIAZEPAM 5 MG/ML 2 ML INJ IVP STA (00:11)
[2019-05-02 00:46] LABS: Partial Thromboplastin Time 19.7 sec (22.0-30.0)
[2019-05-02 01:26] LABS: Appearance,Urine Clear (Clear); Bilirubin,Urine Negative (Negative); Blood,Urine Negative (Negative); Color,Urine Yellow; Glucose,Urine (UA) 4+ (Negative); Ketones,Urine Negative (Negative); Leukocyte Esterase,Urine Negative (Negative); Nitrite,Urine Negative (Negative); Protein,Urine Negative (Negative); Specific Gravity,Urine 1.024 (1.001-1.035); Urobilinogen,Urine <2.0 mg/dL (<2.0)
[2019-05-02] MEDS: MORPHINE SULFATE 4 MG/ML SYRINGE IV PRN ×2 (02:10→17:52)
[2019-05-02] MEDS: SODIUM CHLORIDE 0.9% 1,000 ML IV SCH ×3 (02:14→22:30)
[2019-05-02] MEDS ORDERED: DIAZEPAM 5 MG TAB PO STA (04:02)
--- NOTE | 2019-05-02 09:54 | P.CNOR ---
History of Present Illness - [facility] Consult date: 05/02/19 Consult reason: fracture (Right hip fracture) History of present illness: Ada is a pleasantly demented 74-year-old female who is brought to the ER today by EMS for evaluation of right hip pain. Patient provides minimal history however her at bedside states that she was in the home with them when she told them she was going to go home to see her , she then began to walk out of the garage. She has very poor vision and didn't see the steps. She misstepped and fell. They attempted to help her up but she was complaining of pain in her right hip so EMS was called. She fell down one step into the garage. She did not hit her head she had no loss of consciousness. Today she complains of no head or neck pain. She has no complaint of upper extremity pain. We're consulted for orthopedic evaluation. She was recently hospitalized with urinary tract infection and diarrhea. Past Medical History Past Medical History: Atrial Fibrillation, Dementia, Diabetes Mellitus, Hyperlipidemia, Hypertension, Sleep Apnea/CPAP/BIPAP Additional Past Medical History / Comment(s): wt loss of 183# down to 123# over last year,no appetite,scratches skin frequently causing some sores,has cpap History of Any Multi-Drug Resistant Organisms: None Reported Past Surgical History: No Surgical Hx Reported Additional Past Surgical History / Comment(s): mark cataracts,rt retinal repair Past Anesthesia/Blood Transfusion Reactions: No Reported Reaction Past Psychological History: No Psychological Hx Reported Smoking Status: Never smoker Past Alcohol Use History: None Reported Past Drug Use History: None Reported - Past Family History Mother Family Medical History: Cancer Additional Family Medical History / Comment(s): Mother at age 57 from uterine cancer. Father Family Medical History: Cancer Additional Family Medical History / Comment(s): Father in his 70s from cancer with metastatic disease to the brain. Sister(s) Family Medical History: CVA/TIA, Dementia Additional Family Medical History / Comment(s): Patient has 2 sisters. One s ister has dementia and one sister with breast cancer. Patient has 2 brothers with no major medical problems. Patient has 2 daughters and one has diabetes and one son with no major medical problems. Medications and Allergies Home Medications Medication Instructions Recorded Confirmed Type Aspirin [Adult Low Dose Aspirin EC] 81 mg PO DAILY 09/28/15 05/02/19 History Atorvastatin [Lipitor] 5 mg PO HS 09/28/15 05/02/19 History Carvedilol [Coreg] 3.125 mg PO DAILY 09/28/15 05/02/19 History Lisinopril [Zestril] 20 mg PO BID 09/28/15 05/02/19 History Magnesium Oxide [Mag-Ox] 400 mg PO HS 09/28/15 05/02/19 History Raloxifene [Evista] 60 mg PO HS 09/28/15 05/02/19 History Mirtazapine [Remeron] 15 mg PO HS 05/23/17 05/02/19 History Cyanocobalamin (Vitamin B-12) 2,500 mcg PO DAILY 04/27/19 05/02/19 History [Vitamin B-12] Donepezil 23mg 23 mg PO HS 04/27/19 05/02/19 History Multivitamins, Thera [Multivitamin 1 tab PO DAILY 04/27/19 05/02/19 History (formulary)] Cefuroxime [Ceftin] 250 mg PO BID #14 tablet 04/28/19 05/02/19 Rx Insulin Glargine [Lantus] 18 units SQ HS 05/02/19 05/02/19 History Latanoprost [Xalatan 0.005%] 1 drop BOTH EYES HS 05/02/19 05/02/19 History Allergies Allergy/AdvReac Type Severity Reaction Status Date / Time No Known Allergies Allergy Verified 05/02/19 07:04 Physical Examination This is a pleasant 74-year-old female in no acute distress. She is alert with some confusion. She does not recall the details of her fall. Her and [id number] are present at bedside. Exam of the head neck reveal no obvious deformity. She is able to rotate her neck without difficulty. There is no pain with palpation about cervical spine or paraspinal musculature. Exam the upper extremities reveal no obvious deformity. She has full passive motion of the shoulders. No deformities noted to the wrist, hand or fingers. Neurovascular status to the upper extremities is grossly intact. Exam of the lower extremities reveals slight shortening and external rotation to the right leg. She has full toe motion bilaterally. Pedal pulses are +2/4 bilaterally. Neurovascular status to the lower extremities is intact. Results Pelvis and right hip x-rays reveal a slightly comminuted intertrochanteric fracture of the right hip. No other fractures identified. - Labs Labs: Abnormal Lab Results - Last 24 Hours (Table) 05/01/19 05/01/19 05/01/19 Range/Units 23:10 23:10 23:10 RBC 3.75 L (3.80-5.40) m/uL Hct 33.7 L (34.0-46.0) % APTT 19.7 L (22.0-30.0) sec Glucose 240 H (74-99) mg/dL Urine Glucose (UA) (Negative) 05/02/19 Range/Units 00:30 RBC (3.80-5.40) m/uL Hct (34.0-46.0) % APTT (22.0-30.0) sec Glucose (74-99) mg/dL Urine Glucose (UA) 4+ H (Negative) H & H 05/01/19 Range/Units 23:10 Hgb 11.5 (11.4-16.0) gm/dL Hct 33.7 L (34.0-46.0) % Coagulation 05/01/19 Range/Units 23:10 INR 1.0 (<1.2) Result Diagrams: 05/01/19 23:10 05/01/19 23:10 Assessment and Plan (1) Dementia Current Visit: Yes Status: Acute Code(s): F03.90 - UNSPECIFIED DEMENTIA WITHOUT BEHAVIORAL DISTURBANCE SNOMED Code(s): 45119100 (2) Fall Current Visit: Yes Status: Acute Code(s): W19.XXXA - UNSPECIFIED FALL, INITIAL ENCOUNTER SNOMED Code(s): 9279295 (3) Fracture, intertrochanteric, right femur Current Visit: Yes Status: Acute Code(s): S72.141A - DISPLACED INTERTROCHANTERIC FRACTURE OF RIGHT FEMUR, INIT SNOMED Code(s): 687490284 (4) Altered mental state Current Visit: No Status: Acute Code(s): R41.82 - ALTERED MENTAL STATUS, UNSPECIFIED SNOMED Code(s): 161844064 (5) Recent urinary tract infection Current Visit: Yes Status: Acute Code(s): Z87.440 - PERSONAL HISTORY OF URINARY (TRACT) INFECTIONS SNOMED Code(s): 9556323458719 Plan: The clinical and radiographic findings are discussed with the patient and her family. It is recommended that she undergo closed reduction with insertion of intertrochanteric nail of the right hip. The procedures discussed in detail including the possible risks and outcomes. She'll most likely require inpatient rehab postoperatively. After discussion and consideration the patient and family elects to proceed with the surgery.
[2019-05-02 11:39] LABS: Glucose,Whole Blood 294 mg/dL (75-99)
[2019-05-02] MEDS: LISINOPRIL 20 MG TAB PO SCH ×2 (11:52→20:37)
[2019-05-02] MEDS: INSULIN ASPART (NovoLOG) 100 UNIT/ML VIAL SQ SCH ×3 (11:53→20:36)
[2019-05-02] MEDS: CARVEDILOL 3.125 MG TAB PO SCH (11:53)
--- NOTE | 2019-05-02 14:39 | P.HPIM ---
History of Present Illness H&P Date: 05/02/19 Chief Complaint: Right hip pain This is a 74-year-old female patient of Dr. Verdin with past medical history of paroxysmal atrial fibrillation, dementia, diabetes mellitus type 2, hypertension, hyperlipidemia, obstructive sleep apnea. Patient resides at home with her . She had a recent hospitalization and discharged home on April 28. She was treated for dehydration secondary to diarrhea, possible urinary tract infection, metabolic encephalopathy. She was also seen by orthopedics for trigger finger. The patient had a fall at home, mechanical fall in the branch. No head injury or loss consciousness. Patient was complaining of pain in her right hip and EMS was called and patient was brought into [facility] emergency center for evaluation. Pelvis and right hip x-rays revealed a slightly comminuted intratrochanteric fracture of the right hip. No other fractures identified. WBC 6.7, hemoglobin 11.5, platelet count 170. Electrolytes and renal function within normal limits, blood sugar 240. Temperature maximum 100.7, blood pressure 157/70, heart rate 95, pulse ox 98% on room air. In the emergency center, patient received Valium 5 mg 2 and was started on IV Ativan and morphine. Home medications will be resumed. Patient has been seen by orthopedics with plan for closed reduction and insertion of intertrochanteric nail of the right hip. Patient is scheduled for surgical intervention tomorrow. Review of Systems ROS unobtainable: due to mental status Musculoskeletal: right: hip pain Past Medical History Past Medical History: Atrial Fibrillation, Dementia, Diabetes Mellitus, Hyperlipidemia, Hypertension, Sleep Apnea/CPAP/BIPAP Additional Past Medical History / Comment(s): wt loss of 183# down to 123# over last year,no appetite,scratches skin frequently causing some sores,has cpap History of Any Multi-Drug Resistant Organisms: None Reported Past Surgical History: No Surgical Hx Reported Additional Past Surgical History / Comment(s): mark cataracts,rt retinal repair Past Anesthesia/Blood Transfusion Reactions: No Reported Reaction Past Psychological History: No Psychological Hx Reported Smoking Status: Never smoker Past Alcohol Use History: None Reported Additional Past Alcohol Use History / Comment(s): Patient is a lifelong nonsmoker, no marijuana, illicit drug use, alcohol use. Patient lives at home with her . Past Drug Use History: None Reported - Past Family History Mother Family Medical History: Cancer Additional Family Medical History / Comment(s): Mother at age 57 from uterine cancer. Father Family Medical History: Cancer Additional Family Medical History / Comment(s): Father in his 70s from cancer with metastatic disease to the brain. Sister(s) Family Medical History: CVA/TIA, Dementia Additional Family Medical History / Comment(s): Patient has 2 sisters. One sister has dementia and one sister with breast cancer. Patient has 2 brothers with no major medical problems. Patient has 2 daughters and one has diabetes and one son with no major medical problems. Medications and Allergies Home Medications Medication Instructions Recorded Confirmed Type Aspirin [Adult Low Dose Aspirin EC] 81 mg PO DAILY 09/28/15 05/02/19 History Atorvastatin [Lipitor] 5 mg PO HS 09/28/15 05/02/19 History Carvedilol [Coreg] 3.125 mg PO DAILY 09/28/15 05/02/19 History Lisinopril [Zestril] 20 mg PO BID 09/28/15 05/02/19 History Magnesium Oxide [Mag-Ox] 400 mg PO HS 09/28/15 05/02/19 History Raloxifene [Evista] 60 mg PO HS 09/28/15 05/02/19 History Mirtazapine [Remeron] 15 mg PO HS 05/23/17 05/02/19 History Cyanocobalamin (Vitamin B-12) 2,500 mcg PO DAILY 04/27/19 05/02/19 History [Vitamin B-12] Donepezil 23mg 23 mg PO HS 04/27/19 05/02/19 History Multivitamins, Thera [Multivitamin 1 tab PO DAILY 04/27/19 05/02/19 History (formulary)] Cefuroxime [Ceftin] 250 mg PO BID #14 tablet 04/28/19 05/02/19 Rx Insulin Glargine [Lantus] 18 units SQ HS 05/02/19 05/02/19 History Latanoprost [Xalatan 0.005%] 1 drop BOTH EYES HS 05/02/19 05/02/19 History Allergies Allergy/AdvReac Type Severity Reaction Status Date / Time No Known Allergies Allergy Verified 05/02/19 07:04 Physical Exam Vitals: Vital Signs Temp Pulse Pulse Resp BP BP Pulse Ox 05/02/19 08:30 100.7 F H 95 16 157/70 98 05/02/19 04:58 98.1 F 92 18 160/73 99 05/02/19 03:23 79 18 147/77 98 05/02/19 02:15 87 16 127/56 99 05/02/19 00:15 62 18 140/66 94 L 05/01/19 22:53 97.9 F 71 18 103/67 99 Intake and Output 05/01/19 05/02/19 05/02/19 22:59 06:59 14:59 Output Total 1000 Balance -1000 Output: Urine 1000 Other: Weight 86.183 kg Gen: This is a 74-year-old female. Patient is sleeping arouses to verbal stimuli. HEENT: Head is atraumatic, normocephalic. Pupils equal, round. Sclerae is anicteric. NECK: Supple. No JVD. No lymphadenopathy. No thyromegaly. LUNGS: Clear to auscultation. No wheezes or rhonchi. No intercostal retractions. HEART: Regular rate and rhythm. No murmur. ABDOMEN: Soft. Bowel sounds are present. No masses. No tenderness. Arroyo c atheter draining clear nixon urine. EXTREMITIES: No pedal edema. No calf tenderness. Right leg with external rotation and shortening, edema at the right hip area. NEUROLOGICAL: Patient is awake, oriented to person. Cranial nerves 2 through 12 are grossly intact. Results CBC & Chem 7: 05/01/19 23:10 05/01/19 23:10 Labs: Abnormal Lab Results - Last 24 Hours (Table) 05/01/19 05/01/19 05/01/19 Range/Units 23:10 23:10 23:10 RBC 3.75 L (3.80-5.40) m/uL Hct 33.7 L (34.0-46.0) % APTT 19.7 L (22.0-30.0) sec Glucose 240 H (74-99) mg/dL Urine Glucose (UA) (Negative) 05/02/19 Range/Units 00:30 RBC (3.80-5.40) m/uL Hct (34.0-46.0) % APTT (22.0-30.0) sec Glucose (74-99) mg/dL Urine Glucose (UA) 4+ H (Negative) Thrombosis Risk Factor Assmnt - DVT/VTE Prophylaxis DVT/VTE Prophylaxis: Pharmacologic Prophylaxis ordered Assessment and Plan Plan: 1. Intertrochanteric fracture right hip. Orthopedic consult appreciated. Patient is scheduled for closed reduction and insertion of intratrochanteric nail of the right hip on Monday. 2. Hyperlipidemia. Continue Lipitor. 3. Hypertension. Continue Coreg 3.125 mg daily. 4. History of paroxysmal atrial fibrillation, in normal sinus. Continue Coreg. 5. Dementia. Continue Aricept. 6. DVT prophylaxis. 7. GI prophylaxis. Pepcid. 8. Osteoporosis. Hold Evista. Patient will be admitted to the hospital for a minimum of 2 night stay. Discharge plan: Subacute rehab Impression and plan of care have been directed as dictated by the signing physician. Pati Tillman nurse practitioner acting as scribe for signing physician.
[2019-05-02 16:34] LABS: Glucose,Whole Blood 216 mg/dL (75-99)
[2019-05-02 20:09] LABS: Glucose,Whole Blood 188 mg/dL (75-99)
[2019-05-02] MEDS: INSULIN DETEMIR (LEVEMIR) 100 UNIT/ML SYR SQ SCH (20:36)
[2019-05-02] MEDS: ATORVASTATIN 10 MG TAB PO SCH (20:37)
[2019-05-02] MEDS: MIRTAZAPINE 15 MG TAB PO SCH (20:37)
[2019-05-02] MEDS: DONEPEZIL 10 MG TAB PO SCH (20:37)
[2019-05-02] MEDS: MAGNESIUM OXIDE 400 MG TAB PO SCH (20:37)
[2019-05-02] MEDS: LATANOPROST 0.005% OPHTH DROPS 2.5 ML BTL BOTH EYES SCH (20:55)
[2019-05-03 06:54] LABS: Glucose,Whole Blood 110 mg/dL (75-99)
[2019-05-03] MEDS: INSULIN ASPART (NovoLOG) 100 UNIT/ML VIAL SQ SCH ×4 (07:04→21:25)
[2019-05-03] MEDS: CYANOCOBALAMIN 500 MCG TAB PO SCH (07:52)
[2019-05-03] MEDS: MULTIVITAMINS, THERA 1 EACH TAB PO SCH (07:53)
[2019-05-03] MEDS: FAMOTIDINE 20 MG TAB PO SCH (07:53)
[2019-05-03] MEDS: LISINOPRIL 20 MG TAB PO SCH ×2 (07:53→21:18)
[2019-05-03] MEDS: CARVEDILOL 3.125 MG TAB PO SCH (08:02)
[2019-05-03 08:04] LABS: HGB 10.1 gm/dL (11.4-16.0); MCH 31.1 pg (25.0-35.0); MCHC 34.8 g/dL (31.0-37.0); MCV 89.4 fL (80.0-100.0); Mean Platelet Volume 8.6; Platelet Count 167 k/uL (150-450); RBC 3.25 m/uL (3.80-5.40); RDW 12.7 % (11.5-15.5); WBC 9.1 k/uL (3.8-10.6)
[2019-05-03 08:11] LABS: Glucose,Whole Blood 116 mg/dL (75-99)
[2019-05-03 08:20] LABS: African American GFR (CKD) >90 (>60 ml/min/1.73 sqM); Anion Gap 6 mmol/L; Blood Urea Nitrogen 7 mg/dL (7-17); Calcium 8.4 mg/dL (8.4-10.2); Carbon Dioxide 27 mmol/L (22-30); Chloride 104 mmol/L (98-107); Glucose 98 mg/dL (74-99); Non-African American GFR(CKD) >90 (>60 ml/min/1.73 sqM); Potassium 3.6 mmol/L (3.5-5.1); Sodium 137 mmol/L (137-145)
[2019-05-03 11:25] LABS: Glucose,Whole Blood 112 mg/dL (75-99)
[2019-05-03] MEDS ORDERED: IV FLUID CONTINUATION 1,000 ML IV ONE (12:25)
[2019-05-03 13:11] LABS: Glucose,Whole Blood 123 mg/dL (75-99)
[2019-05-03] MEDS ORDERED: PHENYLEPHRINE-0.9% NACL SYG 1 MG/10 ML SYRINGE ONE (13:41)
[2019-05-03] MEDS ORDERED: KETAMINE 10 MG/ML 20 ML VIAL ONE (13:41)
[2019-05-03] MEDS ORDERED: MIDAZOLAM 2 MG/2 ML VIAL ONE (13:41)
[2019-05-03] MEDS ORDERED: PROPOFOL 10 MG/ML 20 ML VIAL IV ONE (13:41)
[2019-05-03] MEDS ORDERED: HYDROmorphone 0.5 MG/0.5 ML SYRINGE IVP PRN ×3 (13:54)
[2019-05-03] MEDS ORDERED: NALOXONE 0.4 MG/ML 1 ML VIAL IV PRN (13:54)
[2019-05-03] MEDS ORDERED: HYDROcodone/APAP 5-325MG 1 EACH TAB PO PRN (13:54)
[2019-05-03] MEDS ORDERED: MAGNESIUM HYDROXIDE 2,400 MG/10 ML CUP PO PRN (13:54)
[2019-05-03] MEDS ORDERED: ceFAZolin 1,000 MG in SODIUM CHLORIDE 0.9% 1,000 ML IRRIGATION ONE (14:00)
[2019-05-03] MEDS ORDERED: LACTATED RINGERS 1,000 ML IV ONE (14:38)
--- NOTE | 2019-05-03 14:40 | P.OP ---
Date of Procedure: 05/03/19 Procedure(s) Performed: PREOPERATIVE DIAGNOSIS: Right hip intertrochanteric fracture. POSTOPERATIVE DIAGNOSIS: Right hip intertrochanteric fracture. OPERATION: Right hip intertrochanteric fracture closed reduction and intramedullary nailing using Synthes IT nail. ORTHOTIC TECHNICIAN: Bre Sierra CFA (Assistance with: Patient positioning, retraction, exposure, hemostasis, fixation, irrigation, closure, dressing) ANESTHESIA: Spinal ESTIMATED BLOOD LOSS: 100 mL. COMPLICATIONS: None OPERATIVE FINDINGS: See dictation INDICATIONS: Mrs. Clark is a 74 year old female with a history of right intertrochanteric fracture. The patient has a history of severe dementia. The patient presents to the operating room today for closed reduction and intramedullary nailing. I discussed the risks of surgery in detail as being inclusive of but not limited to: Bleeding, infection, scarring, discomfort, blood vessel and/or nerve damage, need for further surgery, malunion, nonunion, gait disturbance including persistent or permanent limp, limb length inequality, arthritis, hardware failure, blood clot, pulmonary embolism, , and other risks. The consent form has been signed. PROCEDURE: After appropriate consent was obtained, the patient was taken to the operating room and placed in supine position. Spinal anesthetic was administered and after confirmation of adequate anesthesia, the patient was carefully placed in the supine position on the operating room table in the fracture table. The patient was placed up against a well-padded peroneal post. Care was taken to make sure about that all pressure points were adequately padded. The affected leg was placed in boot traction and the unaffected leg was placed in a well leg rodas. Using gentle longitudinal distraction as well as adduction and internal rotation, the fracture was reduced as assessed by AP and lateral C-arm imaging. Once a satisfactory reduction had been obtained, the thigh was prepped and draped in the usual aseptic fashion using ChloraPrep. Ioban drape was used for the case and the patient received intravenous antibiotics prior to incision. Timeout was called, confirming patient identity, side, procedure, and administration of antibiotics. The incision was then created with a #10 blade just proximal to the greater trochanter laterally. It was carried down through skin into the subcutaneous tissues and through fascia. Hemostasis was obtained using electrocautery. The tip of the greater trochanter was palpated and a guide pin was placed at the tip and directed into the femoral shaft as assessed with C-arm imaging. Once optimal pin position had been obtained, a 17 mm reamer was used over the guide pin to create a path for the IT nail. IT nail selected was assembled to the insertion jig on the back table and bushings were checked for accuracy. The nail was then inserted using gentle mallet taps until it was fully deployed. The amount of rotation of the implant was assessed based on the amount of anteversion of the femoral neck. This was rotated to match the patient's femoral neck anteversion and the helical blade guide was placed through the insertion jig and through an incision on the lateral side of the thigh more distal than the first. Once this guide was placed against the lateral cortex of the femur, a guide pin was drilled into the central region of the femoral head and neck as based on AP and lateral C-arm imaging. Once optimal pin position had been obtained, the guidewire was measured and appropriately sized helical blade was selected. The path for the helical blade was prepared using a tapered reamer. The helical blade was then inserted using gentle mallet taps along the guidewire until it was fully deployed. There was no displacement of the fracture during this step. The anti-rotation screw was locked down and the insertion apparatus for the helical blade was removed. The guide pin was then removed. Traction was then removed from the leg and the distal interlock was placed through the jig using standard technique. Finally, the insertion jig for the nail was removed and final C-arm images were taken and saved in both AP and lateral planes. The final x-rays showed satisfactory positioning of the implant and good reduction of the fracture. The top of the nail was plugged with a small quantity of bone wax and the incisions were then thoroughly irrigated with normal saline. Final hemostasis was obtained using electrocautery and closure of the fascia was performed using 0-Vicryl suture. 2-0 Vicryl suture was used in the subcutaneous tissues and standard skin closure was performed. Sterile dressing was then applied and the patient was carefully removed from the fracture table frame and placed onto the stretcher. The patient tolerated the procedure well. There were no complications and above noted blood loss. The patient was then subsequently transferred to recovery room in stable condition. Sponge and needle counts were correct.
--- NOTE | 2019-05-03 14:45 | XR ---
EXAMINATION TYPE: XR Hip Complete RT DATE OF EXAM: 05/03/2019 COMPARISON: NONE HISTORY: Pain TECHNIQUE: One view submitted. FINDINGS: There is postsurgical change in near anatomic alignment. There is soft tissue edema and emphysema. IMPRESSION: 1. Postoperative change. Appears in near-anatomic alignment.
--- NOTE | 2019-05-03 14:46 | FL ---
EXAMINATION TYPE: FL guidance operating room DATE OF EXAM: 05/03/2019 HISTORY: Flouroscopy time 44 seconds of fluoroscopy provided. IMPRESSION: 1. Fluoroscopy time.
[2019-05-03 15:12] LABS: Glucose,Whole Blood 133 mg/dL (75-99)
--- NOTE | 2019-05-03 15:15 | P.PN ---
Subjective Progress Note Date: 05/03/19 This is a 74-year-old female patient of Dr. Verdin with past medical history of paroxysmal atrial fibrillation, dementia, diabetes mellitus type 2, hypertension, hyperlipidemia, obstructive sleep apnea. Patient resides at home with her . She had a recent hospitalization and discharged home on April 28. She was treated for dehydration secondary to diarrhea, possible urinary tract infection, metabolic encephalopathy. She was also seen by orthopedics for trigger finger. The patient had a fall at home, mechanical fall in the branch. No head injury or loss consciousness. Patient was complaining of pain in her right hip and EMS was called and patient was brought into [facility] emergency center for evaluation. Pelvis and right hip x-rays revealed a slightly comminuted intratrochanteric fracture of the right hip. No other fractures identified. WBC 6.7, hemoglobin 11.5, platelet count 170. Electrolytes and renal function within normal limits, blood sugar 240. Temperature maximum 100.7, blood pressure 157/70, heart rate 95, pulse ox 98% on room air. In the emergency center, patient received Valium 5 mg 2 and was started on IV Ativan and morphine. Home medications will be resumed. Patient has been seen by orthopedics with plan for closed reduction and insertion of intertrochanteric nail of the right hip. Patient is scheduled for surgical intervention tomorrow. 05/03: Patient has been afebrile, blood pressure 150/71, pulse ox 94% on room ai r, heart rate 93. Hemoglobin 10.1, WBC 9.1, platelet count 167, electrolytes and renal function within normal limits. Blood sugar running between 98 and 188. Patient is scheduled for intratrochanteric nail on the right hip today with orthopedics. No new complaints. Review of Systems ROS unobtainable: due to mental status Musculoskeletal: right: hip pain Objective - Vital Signs Vital signs: Vital Signs Temp 99.7 F H 05/03/19 07:10 Pulse 93 05/03/19 07:10 Resp 15 05/03/19 07:10 BP 158/71 05/03/19 07:10 Pulse Ox 94 L 05/03/19 07:10 Intake & Output 05/02/19 05/03/19 05/03/19 18:59 06:59 18:59 Output Total 1000 375 Balance -1000 -375 Weight 86.183 kg Output: Urine 1000 375 Uretheral (Arroyo) 400 Other: Voiding Method Indwelling Catheter Indwelling Catheter # Bowel Movements 0 - Exam Gen: This is a 74-year-old female. Patient is sleeping arouses to verbal stimuli. HEENT: Head is atraumatic, normocephalic. Pupils equal, round. Sclerae is an icteric. NECK: Supple. No JVD. No lymphadenopathy. No thyromegaly. LUNGS: Clear to auscultation. No wheezes or rhonchi. No intercostal retractions. HEART: Regular rate and rhythm. No murmur. ABDOMEN: Soft. Bowel sounds are present. No masses. No tenderness. Arroyo catheter draining clear nixon urine. EXTREMITIES: No pedal edema. No calf tenderness. Right leg with external rotation and shortening, edema at the right hip area. NEUROLOGICAL: Patient is awake, oriented to person. Cranial nerves 2 through 12 are grossly intact. - Labs CBC & Chem 7: 05/03/19 06:42 05/03/19 06:42 Labs: Abnormal Lab Results - Last 24 Hours (Table) 05/02/19 05/02/19 05/02/19 Range/Units 11:35 16:31 20:05 RBC (3.80-5.40) m/uL Hgb (11.4-16.0) gm/dL Hct (34.0-46.0) % POC Glucose (mg/dL) 294 H 216 H 188 H (75-99) mg/dL 05/03/19 05/03/19 05/03/19 Range/Units 06:42 06:52 08:09 RBC 3.25 L (3.80-5.40) m/uL Hgb 10.1 L (11.4-16.0) gm/dL Hct 29.0 L (34.0-46.0) % POC Glucose (mg/dL) 110 H 116 H (75-99) mg/dL Assessment and Plan Plan: 1. Intertrochanteric fracture right hip. Orthopedic consult appreciated. Patient is scheduled for closed reduction and insertion of intratrochanteric nail of the right hip today. Patient has been cleared medically for surgical intervention. 2. Hyperlipidemia. Continue Lipitor. 3. Hypertension. Continue Coreg 3.125 mg daily. 4. History of paroxysmal atrial fibrillation, in normal sinus. Continue Coreg. 5. Dementia. Continue Aricept. 6. DVT prophylaxis. 7. GI prophylaxis. Pepcid. 8. Osteoporosis. Hold Evista. Patient will be admitted to the hospital for a minimum of 2 night stay. Discharge plan: Subacute rehab next week Impression and plan of care have been directed as dictated by the signing physician. Pati Tillman nurse practitioner acting as scribe for signing physician.
[2019-05-03 16:45] LABS: Hemoglobin A1C 6.6 % (4.0-6.0)
[2019-05-03] MEDS: LACTATED RINGERS 1,000 ML IV SCH ×2 (17:02→23:28)
[2019-05-03 17:08] LABS: Glucose,Whole Blood 158 mg/dL (75-99)
[2019-05-03 19:38] LABS: Basophils # (A) 0.1 k/uL (0-0.2); Basophils % (A) 1 %; Eosinophils # (A) 0.3 k/uL (0-0.7); Eosinophils % (A) 2 %; HCT 28.8 % (34.0-46.0); HGB 9.9 gm/dL (11.4-16.0); Lymphocytes # (A) 0.6 k/uL (1.0-4.8); Lymphocytes % (A) 4 %; MCH 31.1 pg (25.0-35.0); MCHC 34.5 g/dL (31.0-37.0); MCV 90.3 fL (80.0-100.0); Mean Platelet Volume 12.2; Monocytes # (A) 0.5 k/uL (0-1.0); Monocytes % (A) 3 %; Neutrophils # (A) 14.7 k/uL (1.3-7.7); Neutrophils % (A) 90 %; Platelet Count 143 k/uL (150-450); RDW 13.1 % (11.5-15.5); WBC 16.4 k/uL (3.8-10.6)
[2019-05-03 20:12] LABS: Glucose,Whole Blood 192 mg/dL (75-99)
[2019-05-03] MEDS: CEPHALEXIN 500 MG CAP PO SCH (21:18)
[2019-05-03] MEDS: DONEPEZIL 10 MG TAB PO SCH (21:18)
[2019-05-03] MEDS: ATORVASTATIN 10 MG TAB PO SCH (21:18)
[2019-05-03] MEDS: MIRTAZAPINE 15 MG TAB PO SCH (21:18)
[2019-05-03] MEDS: INSULIN DETEMIR (LEVEMIR) 100 UNIT/ML SYR SQ SCH (21:25)
[2019-05-03] MEDS: LATANOPROST 0.005% OPHTH DROPS 2.5 ML BTL BOTH EYES SCH (21:25)
[2019-05-03] MEDS: SENNOSIDES-DOCUSATE SODIUM 1 EACH TAB PO SCH (21:26)
[2019-05-03] MEDS: MAGNESIUM OXIDE 400 MG TAB PO SCH (21:26)
[2019-05-04 06:50] LABS: Glucose,Whole Blood 272 mg/dL (75-99)
[2019-05-04] MEDS: MULTIVITAMINS, THERA 1 EACH TAB PO SCH (07:41)
[2019-05-04] MEDS: FAMOTIDINE 20 MG TAB PO SCH (07:41)
[2019-05-04] MEDS: LISINOPRIL 20 MG TAB PO SCH ×2 (07:41→21:08)
[2019-05-04] MEDS: CARVEDILOL 3.125 MG TAB PO SCH (07:41)
[2019-05-04] MEDS: INSULIN ASPART (NovoLOG) 100 UNIT/ML VIAL SQ SCH ×4 (07:42→21:08)
[2019-05-04] MEDS: CEPHALEXIN 500 MG CAP PO SCH ×4 (07:42→21:08)
[2019-05-04] MEDS: ASPIRIN 325 MG TAB PO SCH (07:43)
[2019-05-04] MEDS: CYANOCOBALAMIN 500 MCG TAB PO SCH (09:58)
[2019-05-04] MEDS: HYDROcodone/APAP 5-325MG 1 EACH TAB PO PRN (09:58)
[2019-05-04 11:24] LABS: Glucose,Whole Blood 316 mg/dL (75-99)
--- NOTE | 2019-05-04 12:07 | P.PN ---
Progress Note - Text Progress Note Date: 05/04/19 Orthopedics: History of Present Illness: Patient is a very pleasant 74-year-old female who is seen and examined the bedside for follow-up evaluation for right hip. She is status post right hip intramedullary nail fixation for right intertrochanteric hip fracture performed yesterday, 05/03/2019. Her family is with her at bedside. She has no complaints. She feels her right hip pain is adequately controlled. She did have some confusion last night and is known have dementia. She removed her Arroyo catheter and IV on her own. She has not urinated since that time. She has not yet required straight catheterization. She has been converted to oral medications without difficulty. She is happy with her progress postoperatively. She is currently awake, alert, and oriented and is communicating while answering questions without difficulty. She is currently planning for discharge Monday to a rehabilitation facility. They're working with case management to find an appropriate rehab location. Physical Exam Intramedullary [place] for Intertrochanteric Fracture: Status post surgical day number 1 Patient is examined lying in bed Patient is awake and alert, and oriented 3 Vital signs stable Good chest excursion with deep inspiration and expiration; patient currently on O2 nasal cannula No signs or symptoms of DVT; no calf pain Lower extremity cuffs not currently in place bilaterally Dressing of the right hip is dry and intact with one small spot of dried blood; no erythema, purulence, or signs of infection No pain with palpation over the surgical sites Full range of motion of ankles bilaterally Dorsiflexion, plantarflexion, and extensor hallucis longus positive sustained bilaterally Neurovascularly intact bilateral lower extremities Capillary refill less than 2 seconds bilateral lower extremities Assessment: Status post right intramedullary nail fixation for right intertrochanteric hip fracture Status post fall Atrial fibrillation Dementia Diabetes mellitus Hyperlipidemia Hypertension Plan: 1. Patient to remain toe-touch weightbearing on the right lower extremity; patient may work with physical therapy to increase mobility and ambulation 2. Keep dressing over the right hip clean, dry, and intact 3. Patient is discontinued Arroyo catheter on her own. Patient is unable to void we'll plan for straight catheterization. 4. Continue pain control with oral [place] and IV Dilaudid as needed for pain control 5. Continue with anticoagulation therapy with aspirin 325 mg twice a day 6. Medicine to continue following the patient for their other medical diagnosis 7. We'll continue to follow the patient closely; depending on the patient's progress, we may plan for discharge this coming 05/06/2019, to a rehabilitation facility 8. Patient can follow-up with Dr. Lawson at [facility] in 2-3 weeks following discharge
[2019-05-04] MEDS: LACTATED RINGERS 1,000 ML IV SCH ×3 (12:16→22:46)
[2019-05-04] MEDS: REPAGLINIDE 1 MG TAB PO SCH (13:16)
[2019-05-04] MEDS: SODIUM CHLORIDE 0.9% 1,000 ML IV SCH (13:16)
[2019-05-04 16:45] LABS: Glucose,Whole Blood 366 mg/dL (75-99)
[2019-05-04] MEDS ORDERED: REPAGLINIDE 1 MG TAB PO SCH (17:30)
[2019-05-04 20:57] LABS: Glucose,Whole Blood 288 mg/dL (75-99)
[2019-05-04] MEDS: LATANOPROST 0.005% OPHTH DROPS 2.5 ML BTL BOTH EYES SCH (21:08)
[2019-05-04] MEDS: INSULIN DETEMIR (LEVEMIR) 100 UNIT/ML SYR SQ SCH (21:08)
[2019-05-04] MEDS: DONEPEZIL 10 MG TAB PO SCH (21:08)
[2019-05-04] MEDS: ATORVASTATIN 10 MG TAB PO SCH (21:08)
[2019-05-04] MEDS: MIRTAZAPINE 15 MG TAB PO SCH (21:08)
[2019-05-04] MEDS: MAGNESIUM OXIDE 400 MG TAB PO SCH (21:14)
[2019-05-04] MEDS: SENNOSIDES-DOCUSATE SODIUM 1 EACH TAB PO SCH (21:14)
[2019-05-05 06:58] LABS: Glucose,Whole Blood 168 mg/dL (75-99)
[2019-05-05] MEDS: REPAGLINIDE 1 MG TAB PO SCH ×3 (07:33→16:58)
[2019-05-05] MEDS: INSULIN ASPART (NovoLOG) 100 UNIT/ML VIAL SQ SCH ×4 (07:34→21:36)
[2019-05-05 09:00] LABS: Basophils % (A) 0 %; Eosinophils # (A) 0.1 k/uL (0-0.7); Eosinophils % (A) 1 %; HCT 24.4 % (34.0-46.0); Lymphocytes # (A) 0.9 k/uL (1.0-4.8); Lymphocytes % (A) 8 %; MCH 29.6 pg (25.0-35.0); MCHC 33.1 g/dL (31.0-37.0); MCV 89.5 fL (80.0-100.0); Mean Platelet Volume 8.2; Monocytes # (A) 0.5 k/uL (0-1.0); Monocytes % (A) 4 %; Neutrophils # (A) 9.2 k/uL (1.3-7.7); Neutrophils % (A) 86 %; Platelet Count 223 k/uL (150-450); RBC 2.72 m/uL (3.80-5.40); RDW 13.3 % (11.5-15.5); WBC 10.8 k/uL (3.8-10.6)
[2019-05-05 09:02] LABS: HGB 8.1 gm/dL (11.4-16.0)
[2019-05-05] MEDS: CEPHALEXIN 500 MG CAP PO SCH ×4 (09:16→21:30)
[2019-05-05] MEDS: CYANOCOBALAMIN 500 MCG TAB PO SCH (09:16)
[2019-05-05] MEDS: ASPIRIN 325 MG TAB PO SCH (09:16)
[2019-05-05] MEDS: MULTIVITAMINS, THERA 1 EACH TAB PO SCH (09:16)
[2019-05-05] MEDS: CARVEDILOL 3.125 MG TAB PO SCH (09:16)
[2019-05-05] MEDS: FAMOTIDINE 20 MG TAB PO SCH (09:16)
[2019-05-05] MEDS: LISINOPRIL 20 MG TAB PO SCH ×2 (09:16→21:30)
[2019-05-05] MEDS: HYDROcodone/APAP 5-325MG 1 EACH TAB PO PRN ×2 (10:57→19:53)
--- NOTE | 2019-05-05 11:12 | P.PN ---
Progress Note - Text Progress Note Date: 05/05/19 Orthopedics: History of Present Illness: Patient is a very pleasant 74-year-old female who is seen and examined the bedside for follow-up evaluation for right hip. She is status post right hip intramedullary nail fixation for right intertrochanteric hip fracture performed 05/03/2019. Her family is with her at bedside. She has no complaints in regards to her right hip. She feels her right hip pain is adequately controlled. She did have some confusion last night and is known have dementia. She previously removed her Arroyo catheter and IV on her own. She was able to urinate once on her own. She did require straight catheterization once. She has been converted to oral medications without difficulty. She is happy with her progress postoperatively. She is currently awake, alert, and oriented and is communicating while answering questions without difficulty. She is currently planning for discharge Monday to a rehabilitation facility. They're working with case management to find an appropriate rehab location. She is complaining of some right calf pain with palpation which was not present yesterday. Physical Exam Intramedullary [place] for Intertrochanteric Fracture: Status post surgical day number 2 Patient is examined lying in bed Patient is awake and alert, and oriented 3 Vital signs stable Good chest excursion with deep inspiration and expiration; patient currently on O2 nasal cannula Some pain with palpation over the right calf; right calf appears warmer and more swollen than the left calf. No signs or symptoms of DVT or calf pain with the left lower extremity Lower extremity cuffs not currently in place bilaterally Dressing of the right hip is dry and intact with one small spot of dried blood; no erythema, purulence, or signs of infection Dressing is removed during physical examination; linda remain in good position over the incisions No pain with palpation over the surgical sites Full range of motion of ankles bilaterally Dorsiflexion, plantarflexion, and extensor hallucis longus positive sustained bilaterally Neurovascularly intact bilateral lower extremities Capillary refill less than 2 seconds bilateral lower extremities Assessment: Status post right intramedullary nail fixation for right intertrochanteric hip fracture Status post fall Right calf pain, swelling, and increased warmth; rule out DVT Atrial fibrillation Dementia Diabetes mellitus Hyperlipidemia Hypertension Plan: 1. Patient to remain toe-touch weightbearing on the right lower extremity; patient may work with physical therapy to increase mobility and ambulation 2. Keep dressing over the right hip clean, dry, and intact 3. Patient is discontinued Arroyo catheter on her own. Patient is unable to void we'll plan for straight catheterization. She was able to void once on her own but has not been able to void on her own since. We will continue to monitor with bladder scanning 4. Continue pain control with oral [place] and IV Dilaudid as needed for pain control 5. Continue with anticoagulation therapy with aspirin 325 mg twice a day 6. Patient has been experiencing increased pain with some increased warmth and swelling of the right calf since being seen exam yesterday. We'll plan to obtain an ultrasound Doppler of the right lower extremity to rule out DVT. 7. Medicine to continue following the patient for their other medical diagnosis 8. We'll continue to follow the patient closely; depending on the patient's progress, we may plan for discharge this coming 05/06/2019, to a rehabilitation facility 9. Patient can follow-up with Dr. Lawson at [facility] in 2-3 weeks following discharge
[2019-05-05 11:25] LABS: Glucose,Whole Blood 363 mg/dL (75-99)
[2019-05-05] MEDS: SODIUM CHLORIDE 0.9% 1,000 ML IV SCH ×2 (12:03→21:47)
[2019-05-05] MEDS ORDERED: POTASSIUM CHLORIDE ER 20 MEQ TAB.ER PO STA (12:26)
[2019-05-05] MEDS: FUROSEMIDE 20 MG TAB PO SCH ×2 (12:59→16:58)
[2019-05-05 13:07] VITALS: BMI 31.6
--- NOTE | 2019-05-05 14:22 | P.PN ---
Subjective Progress Note Date: 05/04/19 This is a 74-year-old female patient of Dr. Verdin with past medical history of paroxysmal atrial fibrillation, dementia, diabetes mellitus type 2, hypertension, hyperlipidemia, obstructive sleep apnea. Patient resides at home with her . She had a recent hospitalization and discharged home on April 28. She was treated for dehydration secondary to diarrhea, possible urinary tract infection, metabolic encephalopathy. She was also seen by orthopedics for trigger finger. The patient had a fall at home, mechanical fall in the branch. No head injury or loss consciousness. Patient was complaining of pain in her right hip and EMS was called and patient was brought into [facility] emergency center for evaluation. Pelvis and right hip x-rays revealed a slightly comminuted intratrochanteric fracture of the right hip. No other fractures identified. WBC 6.7, hemoglobin 11.5, platelet count 170. Electrolytes and renal function within normal limits, blood sugar 240. Temperature maximum 100.7, blood pressure 157/70, heart rate 95, pulse ox 98% on room air. In the emergency center, patient received Valium 5 mg 2 and was started on IV Ativan and morphine. Home medications will be resumed. Patient has been seen by orthopedics with plan for closed reduction and insertion of intertrochanteric nail of the right hip. Patient is scheduled for surgical intervention tomorrow. 05/03: Patient has been afebrile, blood pressure 150/71, pulse ox 94% on room air, heart rate 93. Hemoglobin 10.1, WBC 9.1, platelet count 167, electrolytes and renal function within normal limits. Blood sugar running between 98 and 188. Patient is scheduled for intratrochanteric nail on the right hip today with orthopedics. No new complaints. 05/04: She is sitting up in chair with family at the bedside. Patient is able to answer most questions appropriately. She knows her and daughter are at the bedside. However she does not know the doctor's name. Patient was able to identify Dr. Verdin without any difficulties. Patient blood sugars remaining to be fluctuating. She is on Ozempic and Prandin at home. We will increase Prandin to 4,4, and 3 and instructed to bring in Ozempic and thick for Monday administration. Review of Systems ROS unobtainable: due to mental status Musculoskeletal: right: hip pain Objective - Vital Signs Vital signs: Vital Signs Temp 98.1 F 05/05/19 07:00 Pulse 97 05/05/19 07:00 Resp 15 05/05/19 07:00 BP 133/68 05/05/19 07:00 Pulse Ox 97 05/05/19 07:00 Intake & Output 05/04/19 05/05/19 05/05/19 18:59 06:59 18:59 Intake Total 1200 640 Output Total 300 600 Balance 900 40 Weight 86.183 kg Intake: Oral 1200 640 Output: Urine 300 600 Uretheral (Arroyo) 300 600 Other: # Voids 1 - Exam Gen: This is a 74-year-old female. Patient is sleeping arouses to verbal stimuli. HEENT: Head is atraumatic, normocephalic. Pupils equal, round. Sclerae is anicteric. NECK: Supple. No JVD. No lymphadenopathy. No thyromegaly. LUNGS: Clear to auscultation. No wheezes or rhonchi. No intercostal retractions. HEART: Regular rate and rhythm. No murmur. ABDOMEN: Soft. Bowel sounds are present. No masses. No tenderness. Arroyo catheter draining clear nixon urine. EXTREMITIES: No pedal edema. No calf tenderness. Right leg with external rot ation and shortening, edema at the right hip area. NEUROLOGICAL: Patient is awake, oriented to person. Cranial nerves 2 through 12 are grossly intact. - Labs CBC & Chem 7: 05/05/19 08:12 05/03/19 06:42 Labs: Abnormal Lab Results - Last 24 Hours (Table) 05/04/19 05/04/19 05/05/19 Range/Units 16:36 20:56 06:50 WBC (3.8-10.6) k/uL RBC (3.80-5.40) m/uL Hgb (11.4-16.0) gm/dL Hct (34.0-46.0) % Neutrophils # (1.3-7.7) k/uL Lymphocytes # (1.0-4.8) k/uL POC Glucose (mg/dL) 366 H 288 H 168 H (75-99) mg/dL 05/05/19 05/05/19 Range/Units 08:12 11:24 WBC 10.8 H (3.8-10.6) k/uL RBC 2.72 L (3.80-5.40) m/uL Hgb 8.1 L D (11.4-16.0) gm/dL Hct 24.4 L (34.0-46.0) % Neutrophils # 9.2 H (1.3-7.7) k/uL Lymphocytes # 0.9 L (1.0-4.8) k/uL POC Glucose (mg/dL) 363 H (75-99) mg/dL Assessment and Plan Plan: 1. Intertrochanteric fracture right hip. Orthopedic consult appreciated. Patient is scheduled for closed reduction and insertion of intratrochanteric nail of the right hip today. Patient has been cleared medically for surgical intervention. 2. Diabetes. Prandin 4 mg at breakfast and lunch 3 mg at dinner. Ozemmpic input from home to be given on Monday. 3. Hyperlipidemia. Continue Lipitor. 4. Hypertension. Continue Coreg 3.125 mg daily. 5. History of paroxysmal atrial fibrillation, in normal sinus. Continue Coreg. 6. Dementia. Continue Aricept. 7. DVT prophylaxis. 8. GI prophylaxis. Pepcid. 9. Osteoporosis. Hold Evista. Patient will be admitted to the hospital for a minimum of 2 night stay. Discharge plan: [facility] on Monday Impression and plan of care have been directed as dictated by the signing physician. Kate Corea nurse practitioner acting as scribe for signing physician.
--- NOTE | 2019-05-05 14:25 | P.PN ---
Subjective Progress Note Date: 05/05/19 This is a 74-year-old female patient of Dr. Verdin with past medical history of paroxysmal atrial fibrillation, dementia, diabetes mellitus type 2, hypertension, hyperlipidemia, obstructive sleep apnea. Patient resides at home with her . She had a recent hospitalization and discharged home on April 28. She was treated for dehydration secondary to diarrhea, possible urinary tract infection, metabolic encephalopathy. She was also seen by orthopedics for trigger finger. The patient had a fall at home, mechanical fall in the branch. No head injury or loss consciousness. Patient was complaining of pain in her right hip and EMS was called and patient was brought into [facility] emergency center for evaluation. Pelvis and right hip x-rays revealed a slightly comminuted intratrochanteric fracture of the right hip. No other fractures identified. WBC 6.7, hemoglobin 11.5, platelet count 170. Electrolytes and renal function within normal limits, blood sugar 240. Temperature maximum 100.7, blood pressure 157/70, heart rate 95, pulse ox 98% on room air. In the emergency center, patient received Valium 5 mg 2 and was started on IV Ativan and morphine. Home medications will be resumed. Patient has been seen by orthopedics with plan for closed reduction and insertion of intertrochanteric nail of the right hip. Patient is scheduled for surgical intervention tomorrow. 05/03: Patient has been afebrile, blood pressure 150/71, pulse ox 94% on room air, heart rate 93. Hemoglobin 10.1, WBC 9.1, platelet count 167, electrolytes and renal function within normal limits. Blood sugar running between 98 and 188. Patient is scheduled for intratrochanteric nail on the right hip today with orthopedics. No new complaints. 05/04: She is sitting up in chair with family at the bedside. Patient is able to answer most questions appropriately. She knows her and daughter are at the bedside. However she does not know the daughter's name. Patient was able to identify Dr. Verdin without any difficulties. Patient blood sugars remaining to be fluctuating. She is on Ozempic and Prandin at home. We will increase Prandin to 4,4, and 3 and instructed to bring in Ozempic and thick for Monday administration. 05/05: He is sitting up in chair with family at the bedside. Blood sugars continue to fluctuate. She was given the Prandin we will increase the dose to her home dosage that she is able to tolerate. Discussed with patient the impo rtance of doing brain activities to keep brain active. Patient is able to name her and daughter but does not know her daughter's name. Patient is able to recognize her doctor. There is swelling to the right lower upper thigh that is increased from yesterday. Denies any pain to the calf no redness noted. Patient is scheduled to have an ultrasound to rule out any blood clots. Review of Systems ROS unobtainable: due to mental status Musculoskeletal: right: hip pain Objective - Vital Signs Vital signs: Vital Signs Temp 98.1 F 05/05/19 07:00 Pulse 97 05/05/19 07:00 Resp 15 05/05/19 07:00 BP 133/68 05/05/19 07:00 Pulse Ox 97 05/05/19 07:00 Intake & Output 05/04/19 05/05/19 05/05/19 18:59 06:59 18:59 Intake Total 1200 640 Output Total 300 600 Balance 900 40 Weight 86.183 kg Intake: Oral 1200 640 Output: Urine 300 600 Uretheral (Arroyo) 300 600 Other: # Voids 1 - Exam Gen: This is a 74-year-old female. Patient is sleeping arouses to verbal stimuli. HEENT: Head is atraumatic, normocephalic. Pupils equal, round. Sclerae is anicteric. NECK: Supple. No JVD. No lymphadenopathy. No thyromegaly. LUNGS: Clear to auscultation. No wheezes or rhonchi. No intercostal retractions. HEART: Regular rate and rhythm. No murmur. ABDOMEN: Soft. Bowel sounds are present. No masses. No tenderness. Arroyo catheter draining clear nixon urine. EXTREMITIES: Edema to right lower extremity upper aspect no redness or tenderness with palpation No calf tenderness. Right leg with external rotation and shortening, edema at the right hip area. NEUROLOGICAL: Patient is awake, oriented to person. Cranial nerves 2 through 12 are grossly intact. - Labs CBC & Chem 7: 05/05/19 08:12 05/03/19 06:42 Labs: Abnormal Lab Results - Last 24 Hours (Table) 05/04/19 05/04/19 05/05/19 Range/Units 16:36 20:56 06:50 WBC (3.8-10.6) k/uL RBC (3.80-5.40) m/uL Hgb (11.4-16.0) gm/dL Hct (34.0-46.0) % Neutrophils # (1.3-7.7) k/uL Lymphocytes # (1.0-4.8) k/uL POC Glucose (mg/dL) 366 H 288 H 168 H (75-99) mg/dL 05/05/19 05/05/19 Range/Units 08:12 11:24 WBC 10.8 H (3.8-10.6) k/uL RBC 2.72 L (3.80-5.40) m/uL Hgb 8.1 L D (11.4-16.0) gm/dL Hct 24.4 L (34.0-46.0) % Neutrophils # 9.2 H (1.3-7.7) k/uL Lymphocytes # 0.9 L (1.0-4.8) k/uL POC Glucose (mg/dL) 363 H (75-99) mg/dL Assessment and Plan Plan: 1. Intertrochanteric fracture right hip. Orthopedic consult appreciated. Patient is scheduled for closed reduction and insertion of intratrochanteric nail of the right hip today. Patient has been cleared medically for surgical intervention. 2. Diabetes. Increase Prandin to 5 mg at breakfast and lunch 4 mg at dinner. Ozemmpic input from home to be given on Monday. 3. Hyperlipidemia. Continue Lipitor. 4. Hypertension. Continue Coreg 3.125 mg daily. 5. History of paroxysmal atrial fibrillation, in normal sinus. Continue Coreg. 6. Dementia. Continue Aricept. 7. DVT prophylaxis. 8. GI prophylaxis. Pepcid. 9. Osteoporosis. Hold Evista. 10. Swelling to right lower extremity. Ultrasound to rule out DVT, give Lasix 20 mg by mouth now and again at 6. Patient will be admitted to the hospital for a minimum of 2 night stay. Discharge plan: [facility] on Monday Impression and plan of care have been directed as dictated by the signing physician. Kate Corea nurse practitioner acting as scribe for signing physician.
--- NOTE | 2019-05-05 14:39 | US ---
EXAMINATION TYPE: US venous doppler duplex LE RT DATE OF EXAM: 05/05/2019 1:51 PM COMPARISON: NONE CLINICAL HISTORY: Right lower extremity calf pain with palpation. Post right hip fixation after fract ure SIDE PERFORMED: Right TECHNIQUE: The lower extremity deep venous system is examined utilizing real time linear array sonog andre with graded compression, doppler sonography and color-flow sonography. VESSELS IMAGED: Common Femoral Vein Deep Femoral Vein Greater Saphenous Vein * Femoral Vein Popliteal Vein - unable to visualize due to inability to place US probe here with immobility of leg p ost surgery PTV distally at ankle Right Leg: Negative for DVT as technologist was able to assess. IMPRESSION: No evidence of deep venous thrombosis in the right leg.
[2019-05-05] MEDS: LACTATED RINGERS 1,000 ML IV SCH ×2 (17:06→21:47)
[2019-05-05 17:08] LABS: Glucose,Whole Blood 317 mg/dL (75-99)
[2019-05-05 21:03] LABS: Glucose,Whole Blood 343 mg/dL (75-99)
[2019-05-05] MEDS: MIRTAZAPINE 15 MG TAB PO SCH (21:30)
[2019-05-05] MEDS: MAGNESIUM OXIDE 400 MG TAB PO SCH (21:33)
[2019-05-05] MEDS: DONEPEZIL 10 MG TAB PO SCH (21:35)
[2019-05-05] MEDS: INSULIN DETEMIR (LEVEMIR) 100 UNIT/ML SYR SQ SCH (21:36)
[2019-05-05] MEDS: SENNOSIDES-DOCUSATE SODIUM 1 EACH TAB PO SCH (21:37)
[2019-05-05] MEDS: ATORVASTATIN 10 MG TAB PO SCH (21:37)
[2019-05-05] MEDS: LATANOPROST 0.005% OPHTH DROPS 2.5 ML BTL BOTH EYES SCH (21:37)
[2019-05-06 07:04] LABS: Glucose,Whole Blood 166 mg/dL (75-99)
[2019-05-06] MEDS: REPAGLINIDE 1 MG TAB PO SCH ×3 (08:16→19:14)
[2019-05-06] MEDS: CYANOCOBALAMIN 500 MCG TAB PO SCH (08:16)
[2019-05-06] MEDS: LISINOPRIL 20 MG TAB PO SCH ×2 (08:16→20:45)
[2019-05-06] MEDS: INSULIN ASPART (NovoLOG) 100 UNIT/ML VIAL SQ SCH ×4 (08:16→20:48)
[2019-05-06] MEDS: FAMOTIDINE 20 MG TAB PO SCH (08:16)
[2019-05-06] MEDS: CEPHALEXIN 500 MG CAP PO SCH ×4 (08:16→23:09)
[2019-05-06] MEDS: MULTIVITAMINS, THERA 1 EACH TAB PO SCH (08:16)
[2019-05-06] MEDS: ASPIRIN 325 MG TAB PO SCH (08:16)
[2019-05-06] MEDS: CARVEDILOL 3.125 MG TAB PO SCH (08:16)
--- NOTE | 2019-05-06 11:08 | P.PN ---
Subjective Progress Note Date: 05/06/19 Principal diagnosis: Right hip fracture. Status post IT nail right hip. Patient is a pleasantly confused 74-year-old female who is seen and examined the bedside for follow-up evaluation for right hip. She is status post right hip intramedullary nail fixation for right intertrochanteric hip fracture performed 05/03/2019. Her family is with her at bedside. She has no complaints in regards to her right hip. She feels her right hip pain is adequately control led. She did have some confusion last night and is known have dementia. She previously removed her Arroyo catheter and IV on her own. She was able to urinate once on her own. She did require straight catheterization once. She has been converted to oral medications without difficulty. She is happy with her progress postoperatively. She is currently awake, alert, and oriented and is communicating while answering questions without difficulty. She is currently planning for discharge today to a rehabilitation facility. They're working with case management to find an appropriate rehab location. Objective - Vital Signs Vital signs: Vital Signs Temp 97.5 F L 05/06/19 07:00 Pulse 100 05/06/19 07:00 Resp 16 05/06/19 07:00 BP 180/85 05/06/19 07:00 Pulse Ox 98 05/06/19 07:00 Intake & Output 05/05/19 05/06/19 05/06/19 18:59 06:59 18:59 Intake Total 350 750 Output Total 350 1400 Balance 0 -650 Weight 86.183 kg Intake: Oral 350 750 Output: Urine 350 1400 Uretheral (Arroyo) 350 1400 Other: Voiding Method Bedpan Diaper - Exam This is a pleasant 74-year-old female with confusion. Her is present at bedside. Exam of the right hip reveals that her incisions are healing with no sign of infection. There is no erythema or drainage. She has full foot and ankle motion without difficulty or pain. Neurovascular status to the lower extremity is intact. - Labs CBC & Chem 7: 05/05/19 08:12 05/03/19 06:42 Labs: Abnormal Lab Results - Last 24 Hours (Table) 05/05/19 05/05/19 05/05/19 Range/Units 11:24 16:47 21:02 POC Glucose (mg/dL) 363 H 317 H 343 H (75-99) mg/dL 05/06/19 Range/Units 07:01 POC Glucose (mg/dL) 166 H (75-99) mg/dL Assessment and Plan (1) Dementia Current Visit: Yes Status: Acute Code(s): F03.90 - UNSPECIFIED DEMENTIA WITHOUT BEHAVIORAL DISTURBANCE SNOMED Code(s): 02911079 (2) Fall Current Visit: Yes Status: Acute Code(s): W19.XXXA - UNSPECIFIED FALL, INITIAL ENCOUNTER SNOMED Code(s): 8155242 (3) Fracture, intertrochanteric, right femur Current Visit: Yes Status: Acute Code(s): S72.141A - DISPLACED INT ERTROCHANTERIC FRACTURE OF RIGHT FEMUR, INIT SNOMED Code(s): 264574293 (4) Altered mental state Current Visit: No Status: Acute Code(s): R41.82 - ALTERED MENTAL STATUS, UNSPECIFIED SNOMED Code(s): 056473420 (5) Recent urinary tract infection Current Visit: Yes Status: Acute Code(s): Z87.440 - PERSONAL HISTORY OF URINARY (TRACT) INFECTIONS SNOMED Code(s): 5514163715805 Plan: The clinical and radiographic findings are discussed with the patient and her family. We are planning discharge to inpatient rehab. There is a prior authorization pending so she most likely will not going until tomorrow.
[2019-05-06 11:14] LABS: Glucose,Whole Blood 202 mg/dL (75-99)
[2019-05-06] MEDS: LACTATED RINGERS 1,000 ML IV SCH ×2 (12:33→22:55)
--- NOTE | 2019-05-06 15:44 | P.PN ---
Subjective Progress Note Date: 05/06/19 This is a 74-year-old female patient of Dr. Verdin with past medical history of paroxysmal atrial fibrillation, dementia, diabetes mellitus type 2, hypertension, hyperlipidemia, obstructive sleep apnea. Patient resides at home with her . She had a recent hospitalization and discharged home on April 28. She was treated for dehydration secondary to diarrhea, possible urinary tract infection, metabolic encephalopathy. She was also seen by orthopedics for trigger finger. The patient had a fall at home, mechanical fall in the branch. No head injury or loss consciousness. Patient was complaining of pain in her right hip and EMS was called and patient was brought into [facility] emergency center for evaluation. Pelvis and right hip x-rays revealed a slightly comminuted intratrochanteric fracture of the right hip. No other fractures identified. WBC 6.7, hemoglobin 11.5, platelet count 170. Electrolytes and renal function within normal limits, blood sugar 240. Temperature maximum 100.7, blood pressure 157/70, heart rate 95, pulse ox 98% on room air. In the emergency center, patient received Valium 5 mg 2 and was started on IV Ativan and morphine. Home medications will be resumed. Patient has been seen by orthopedics with plan for closed reduction and insertion of intertrochanteric nail of the right hip. Patient is scheduled for surgical intervention tomorrow. 05/03: Patient has been afebrile, blood pressure 150/71, pulse ox 94% on room ai r, heart rate 93. Hemoglobin 10.1, WBC 9.1, platelet count 167, electrolytes and renal function within normal limits. Blood sugar running between 98 and 188. Patient is scheduled for intratrochanteric nail on the right hip today with orthopedics. No new complaints. 05/04: She is sitting up in chair with family at the bedside. Patient is able to answer most questions appropriately. She knows her and daughter are at the bedside. However she does not know the daughter's name. Patient was able to identify Dr. Verdin without any difficulties. Patient blood sugars remaining to be fluctuating. She is on Ozempic and Prandin at home. We will increase Prandin to 4,4, and 3 and instructed to bring in Ozempic and thick for Monday administration. 05/05: He is sitting up in chair with family at the bedside. Blood sugars continue to fluctuate. She was given the Prandin we will increase the dose to her home dosage that she is able to tolerate. Discussed with patient the imp ortance of doing brain activities to keep brain active. Patient is able to name her and daughter but does not know her daughter's name. Patient is able to recognize her doctor. There is swelling to the right lower upper thigh that is increased from yesterday. Denies any pain to the calf no redness noted. Patient is scheduled to have an ultrasound to rule out any blood clots. 05/06: Patient remains quite confused. She refuses to take her medications this morning. Family has brought and her home medication of Ozempic which will be ordered and continued at the senior living as well. Patient has been afebrile, heart rate 100, blood pressure 180/85, pulse ox 90% on room air. Blood sugars running between 166 and 343. Levemir increased to 15 units. Anticipate discharge to [facility] once insurance authorization has been obtained. Medication reconciliation has been completed. Review of Systems ROS unobtainable: due to mental status Objective - Vital Signs Vital signs: Vital Signs Temp 97.5 F L 05/06/19 07:00 Pulse 100 05/06/19 07:00 Resp 16 05/06/19 07:00 BP 180/85 05/06/19 07:00 Pulse Ox 98 05/06/19 07:00 Intake & Output 05/05/19 05/06/19 05/06/19 18:59 06:59 18:59 Intake Total 350 750 Output Total 350 1400 Balance 0 -650 Weight 86.183 kg Intake: Oral 350 750 Output: Urine 350 1400 Uretheral (Arroyo) 350 1400 Other: Voiding Method Bedpan Diaper - Exam Gen: This is a 74-year-old female. Patient is sleeping arouses to verbal stimuli. HEENT: Head is atraumatic, normocephalic. Pupils equal, round. Sclerae is anicteric. NECK: Supple. No JVD. No lymphadenopathy. No thyromegaly. LUNGS: Clear to auscultation. No wheezes or rhonchi. No intercostal retractions. HEART: Regular rate and rhythm. No murmur. ABDOMEN: Soft. Bowel sounds are present. No masses. No tenderness. Arroyo catheter draining clear nixon urine. EXTREMITIES: No pedal edema. No calf tenderness. Dressing in place to the right hip area. NEUROLOGICAL: Patient is awake, oriented to person. Cranial nerves 2 through 12 are grossly intact. - Labs CBC & Chem 7: 05/05/19 08:12 05/03/19 06:42 Labs: Abnormal Lab Results - Last 24 Hours (Table) 05/05/19 05/05/19 05/06/19 Range/Units 16:47 21:02 07:01 POC Glucose (mg/dL) 317 H 343 H 166 H (75-99) mg/dL 05/06/19 Range/Units 11:11 POC Glucose (mg/dL) 202 H (75-99) mg/dL Assessment and Plan Plan: 1. Intertrochanteric fracture right hip status post IT nail. Orthopedic consult appreciated. 2. Hyperlipidemia. Continue Lipitor. 3. Hypertension. Continue Coreg 3.125 mg daily. 4. History of paroxysmal atrial fibrillation, in normal sinus. Continue Coreg. 5. Dementia. Continue Aricept. 6. DVT prophylaxis. 7. GI prophylaxis. Pepcid. 8. Osteoporosis. Hold Evista. 9. Diabetes mellitus type 2. Continue Prandin 5 mg with breakfast lunch and 4 mg at supper. Ozempic has been brought by family from home which will be initiated. Levemir increased to 15 units at bedtime. Discharge plan: [facility] once insurance authorization has been obtained. Impression and plan of care have been directed as dictated by the signing physician. Pati Tillman nurse practitioner acting as scribe for signing physician.
[2019-05-06 16:46] LABS: Glucose,Whole Blood 132 mg/dL (75-99)
[2019-05-06] MEDS ORDERED: OZEMPIC SQ SCH (17:00)
[2019-05-06 20:23] LABS: Glucose,Whole Blood 252 mg/dL (75-99)
[2019-05-06] MEDS: MIRTAZAPINE 15 MG TAB PO SCH (20:43)
[2019-05-06] MEDS: DONEPEZIL 10 MG TAB PO SCH (20:43)
[2019-05-06] MEDS: SENNOSIDES-DOCUSATE SODIUM 1 EACH TAB PO SCH (20:46)
[2019-05-06] MEDS: ATORVASTATIN 10 MG TAB PO SCH (20:47)
[2019-05-06] MEDS: MAGNESIUM OXIDE 400 MG TAB PO SCH (20:47)
[2019-05-06] MEDS: INSULIN DETEMIR (LEVEMIR) 100 UNIT/ML SYR SQ SCH (20:48)
[2019-05-06] MEDS: LATANOPROST 0.005% OPHTH DROPS 2.5 ML BTL BOTH EYES SCH (20:49)
[2019-05-06] MEDS: SODIUM CHLORIDE 0.9% 1,000 ML IV SCH (22:55)
[2019-05-07 06:50] LABS: Glucose,Whole Blood 157 mg/dL (75-99)
[2019-05-07] MEDS: CARVEDILOL 3.125 MG TAB PO SCH (07:34)
[2019-05-07] MEDS: INSULIN ASPART (NovoLOG) 100 UNIT/ML VIAL SQ SCH ×4 (07:34→20:31)
[2019-05-07] MEDS: ASPIRIN 325 MG TAB PO SCH (07:34)
[2019-05-07] MEDS: CEPHALEXIN 500 MG CAP PO SCH ×4 (07:34→20:35)
[2019-05-07] MEDS: REPAGLINIDE 1 MG TAB PO SCH ×3 (07:35→17:36)
[2019-05-07] MEDS: LISINOPRIL 20 MG TAB PO SCH ×2 (07:35→22:16)
[2019-05-07] MEDS: CYANOCOBALAMIN 500 MCG TAB PO SCH (07:42)
[2019-05-07] MEDS: MULTIVITAMINS, THERA 1 EACH TAB PO SCH (07:42)
[2019-05-07] MEDS: FAMOTIDINE 20 MG TAB PO SCH (07:42)
[2019-05-07 11:25] LABS: Glucose,Whole Blood 222 mg/dL (75-99)
--- NOTE | 2019-05-07 11:34 | P.PN ---
Subjective Progress Note Date: 05/07/19 This is a 74-year-old female patient of Dr. Verdin with past medical history of paroxysmal atrial fibrillation, dementia, diabetes mellitus type 2, hypertension, hyperlipidemia, obstructive sleep apnea. Patient resides at home with her . She had a recent hospitalization and discharged home on April 28. She was treated for dehydration secondary to diarrhea, possible urinary tract infection, metabolic encephalopathy. She was also seen by orthopedics for trigger finger. The patient had a fall at home, mechanical fall in the branch. No head injury or loss consciousness. Patient was complaining of pain in her right hip and EMS was called and patient was brought into [facility] emergency center for evaluation. Pelvis and right hip x-rays revealed a slightly comminuted intratrochanteric fracture of the right hip. No other fractures identified. WBC 6.7, hemoglobin 11.5, platelet count 170. Electrolytes and renal function within normal limits, blood sugar 240. Temperature maximum 100.7, blood pressure 157/70, heart rate 95, pulse ox 98% on room air. In the emergency center, patient received Valium 5 mg 2 and was started on IV Ativan and morphine. Home medications will be resumed. Patient has been seen by orthopedics with plan for closed reduction and insertion of intertrochanteric nail of the right hip. Patient is scheduled for surgical intervention tomorrow. 05/03: Patient has been afebrile, blood pressure 150/71, pulse ox 94% on room ai r, heart rate 93. Hemoglobin 10.1, WBC 9.1, platelet count 167, electrolytes and renal function within normal limits. Blood sugar running between 98 and 188. Patient is scheduled for intratrochanteric nail on the right hip today with orthopedics. No new complaints. 05/04: She is sitting up in chair with family at the bedside. Patient is able to answer most questions appropriately. She knows her and daughter are at the bedside. However she does not know the daughter's name. Patient was able to identify Dr. Verdin without any difficulties. Patient blood sugars remaining to be fluctuating. She is on Ozempic and Prandin at home. We will increase Prandin to 4,4, and 3 and instructed to bring in Ozempic and thick for Monday administration. 05/05: He is sitting up in chair with family at the bedside. Blood sugars continue to fluctuate. She was given the Prandin we will increase the dose to her home dosage that she is able to tolerate. Discussed with patient the imp ortance of doing brain activities to keep brain active. Patient is able to name her and daughter but does not know her daughter's name. Patient is able to recognize her doctor. There is swelling to the right lower upper thigh that is increased from yesterday. Denies any pain to the calf no redness noted. Patient is scheduled to have an ultrasound to rule out any blood clots. 05/06: Patient remains quite confused. She refuses to take her medications this morning. Family has brought and her home medication of Ozempic which will be ordered and continued at the [facility] as well. Patient has been afebrile, heart rate 100, blood pressure 180/85, pulse ox 90% on room air. Blood sugars running between 166 and 343. Levemir increased to 15 units. Anticipate discharge to [facility] once insurance authorization has been obtained. Medication reconciliation has been completed. 05/07: Patient has been afebrile, blood pressure 140/75, heart rate 95, pulse ox 98% on room air. Patient is currently waiting for acceptance at [facility] and insurance authorization. Blood sugars are running 157-252. Blood sugars are improved after resuming Ozempic. Patient has had no episodes of hypoglycemia. No change in her discharge medications. Right lower extremity negative for DVT on ultrasound. Patient did work with physical therapy got up to a chair. Awaiting insurance authorization. is at bedside and has been updated. Review of Systems ROS unobtainable: due to mental status Objective - Vital Signs Vital signs: Vital Signs Temp 98.3 F 05/07/19 07:00 Pulse 95 05/07/19 07:00 Resp 17 05/07/19 07:00 BP 140/75 05/07/19 07:00 Pulse Ox 98 05/07/19 07:00 Intake & Output 05/06/19 05/07/19 05/07/19 18:59 06:59 18:59 Intake Total 120 320 Output Total 500 600 Balance -380 -280 Intake: Oral 120 320 Output: Urine 500 600 Straight 500 600 Other: Voiding Method Bedpan Diaper # Voids 1 - Exam Gen: This is a 74-year-old female. Patient is awake and alert sitting in a chair. is at bedside. HEENT: Head is atraumatic, normocephalic. Pupils equal, round. Sclerae is anic teric. NECK: Supple. No JVD. No lymphadenopathy. No thyromegaly. LUNGS: Clear to auscultation. No wheezes or rhonchi. No intercostal retractions. HEART: Regular rate and rhythm. No murmur. ABDOMEN: Soft. Bowel sounds are present. No masses. No tenderness. EXTREMITIES: No pedal edema. No calf tenderness. Dressing in place to the right hip area. NEUROLOGICAL: Patient is awake, oriented to person. Cranial nerves 2 through 12 are grossly intact. - Labs CBC & Chem 7: 05/05/19 08:12 05/03/19 06:42 Labs: Abnormal Lab Results - Last 24 Hours (Table) 05/06/19 05/06/19 05/06/19 Range/Units 11:11 16:42 20:21 POC Glucose (mg/dL) 202 H 132 H 252 H (75-99) mg/dL 05/07/19 Range/Units 06:48 POC Glucose (mg/dL) 157 H (75-99) mg/dL Assessment and Plan Plan: 1. Intertrochanteric fracture right hip status post IT nail. Orthopedic consult appreciated. 2. Hyperlipidemia. Continue Lipitor. 3. Hypertension. Continue Coreg 3.125 mg daily. 4. History of paroxysmal atrial fibrillation, in normal sinus. Continue Coreg. 5. Dementia. Continue Aricept. 6. DVT prophylaxis. 7. GI prophylaxis. Pepcid. 8. Osteoporosis. Hold Evista. 9. Diabetes mellitus type 2. Continue Prandin 5 mg with breakfast lunch and 4 mg at supper. Ozempic resumed. Levemir increased to 15 units at bedtime. Discharge plan: [facility] once insurance authorization has been obtained. Impression and plan of care have been directed as dictated by the signing physician. Pait Tillman nurse practitioner acting as scribe for signing physician.
[2019-05-07] MEDS: LACTATED RINGERS 1,000 ML IV SCH (11:37)
--- NOTE | 2019-05-07 14:14 | CDI ---
Documentation Clarification Form Date: 05/07/2019 02:02:19 PM From: Gwendolyn WhatleyEMI smith, CCDS Admit Date: 05/02/2019 12:11:00 AM Patient Name: Ada Clark Visit Number: [id number] Discharge Date: ATTENTION: The Clinical Documentation Specialists (CDI) and [facility] Coding Staff appreciate your assistance in clarifying documentation. Please respond to the clarification below the line at the bottom and electronically sign. The CDI & [facility] Coding staff will review the response and follow-up if needed. Please note: Queries are made part of the Legal Health Record. If you have any questions, please contact the author of this message via ITS. Dr. Staci Verdin: Per the 05/06 orthopedic progress note: Patient had some confusion overnight & pulled out her own IV & Arroyo catheter. Per the 05/06 Internal Medicine progress note: blood sugars are fluctuating, quite confused. Family brought in her home medication (Ozempic). History/Risk Factors: Dementia, Atrial fibrillation, DM II, Hyperlipidemia, Hypertension, Sleep apnea. Per the History & Physical & subsequent progress notes: "Recent admission..... She was treated for dehydration secondary to diarrhea, possible urinary tract infection, metabolic encephalopathy." Clinical Indicators: Presented to the ED after a fall at home, complaining of left hip pain. Found to have a left IT femoral fracture & underwent IM nailing of same. Labs: 05/01 Glucose 240^. 05/03: WBC 16.4^, Hgb 9.9*, Pl Ct 143*, Neut 14.7^, Glucose 158^. Treatment: 05/02: IV Ativan, IV Ms, IV Zofran, IV Valium, po Valium. 05/03 Hip surgery. IV Cefazolin, IV Dilaudid. In your professional opinion, can you please clarify the specific type of Encephalopathy, if known? Encephalopathy ruled out Hypertensive Encephalopathy Metabolic Encephalopathy Toxic Encephalopathy Other encephalopathy, please specify: Other condition, please specify: Unable to determine (Last Revision: July 2017) acute deliruym poss from opiates, anesthesai MTDD
[2019-05-07] MEDS: HYDROcodone/APAP 5-325MG 1 EACH TAB PO PRN (15:06)
[2019-05-07 16:34] LABS: Glucose,Whole Blood 250 mg/dL (75-99)
[2019-05-07 20:22] LABS: Glucose,Whole Blood 286 mg/dL (75-99)
[2019-05-07] MEDS: INSULIN DETEMIR (LEVEMIR) 100 UNIT/ML SYR SQ SCH (20:33)
[2019-05-07] MEDS: LATANOPROST 0.005% OPHTH DROPS 2.5 ML BTL BOTH EYES SCH (20:42)
[2019-05-07] MEDS: DONEPEZIL 10 MG TAB PO SCH (22:04)
[2019-05-07] MEDS: MIRTAZAPINE 15 MG TAB PO SCH (22:07)
[2019-05-07] MEDS: ATORVASTATIN 10 MG TAB PO SCH (22:10)
[2019-05-07] MEDS: SENNOSIDES-DOCUSATE SODIUM 1 EACH TAB PO SCH (22:14)
[2019-05-07] MEDS: MAGNESIUM OXIDE 400 MG TAB PO SCH (22:16)
[2019-05-08 07:07] LABS: Glucose,Whole Blood 143 mg/dL (75-99)
[2019-05-08] MEDS: REPAGLINIDE 1 MG TAB PO SCH ×3 (08:50→17:06)
[2019-05-08] MEDS: LISINOPRIL 20 MG TAB PO SCH (08:50)
[2019-05-08] MEDS: CEPHALEXIN 500 MG CAP PO SCH ×4 (08:50→20:56)
[2019-05-08] MEDS: CYANOCOBALAMIN 500 MCG TAB PO SCH (08:50)
[2019-05-08] MEDS: MULTIVITAMINS, THERA 1 EACH TAB PO SCH (08:52)
[2019-05-08] MEDS: CARVEDILOL 3.125 MG TAB PO SCH (08:52)
[2019-05-08] MEDS: FAMOTIDINE 20 MG TAB PO SCH (08:52)
[2019-05-08] MEDS: ASPIRIN 325 MG TAB PO SCH (08:52)
[2019-05-08] MEDS: INSULIN ASPART (NovoLOG) 100 UNIT/ML VIAL SQ SCH ×4 (08:53→20:32)
--- NOTE | 2019-05-08 09:35 | P.DS ---
Providers Date of admission: 05/02/19 00:11 Expected date of discharge: 05/08/19 Attending physician: Houston Paniagua Consults: 05/01/19 23:45 Consult Physician Urgent Consulting Provider: Haile Lawson Consult Reason/Comments: right IT fracture Do you want consulting provider notified?: Yes, Notify in am Primary care physician: Staci Verdin [facility] Course: This is a 74-year-old female patient of Dr. Verdin with past medical history of paroxysmal atrial fibrillation, dementia, diabetes mellitus type 2, hypertension, hyperlipidemia, obstructive sleep apnea. Patient resides at home with her . She had a recent hospitalization and discharged home on April 28. She was treated for dehydration secondary to diarrhea, possible urinary tract infection, metabolic encephalopathy. She was also seen by orthopedics for trigger finger. The patient had a fall at home, mechanical fall in the branch. No head injury or loss consciousness. Patient was complaining of pain in her right hip and EMS was called and patient was brought into [facility] emergency center for evaluation. Pelvis and right hip x-rays revealed a slightly comminuted intratrochanteric fracture of the right hip. No other fractures identified. WBC 6.7, hemoglobin 11.5, platelet count 170. Electrolytes and renal function within normal limits, blood sugar 240. Temperature maximum 100.7, blood pressure 157/70, heart rate 95, pulse ox 98% on room air. In the emergency center, patient received Valium 5 mg 2 and was started on IV Ativan and morphine. Home medications will be resumed. Patient has been seen by orthopedics with plan for closed reduction and insertion of intertrochanteric nail of the right hip. Patient is scheduled for surgical intervention tomorrow. 05/03: Patient has been afebrile, blood pressure 150/71, pulse ox 94% on room air, heart rate 93. Hemoglobin 10.1, WBC 9.1, platelet count 167, electrolytes and renal function within normal limits. Blood sugar running between 98 and 188. Patient is scheduled for intratrochanteric nail on the right hip today with orthopedics. No new complaints. 05/04: She is sitting up in chair with family at the bedside. Patient is able to answer most questions appropriately. She knows her and daughter are at the bedside. However she does not know the daughter's name. Patient was able to identify Dr. Verdin without any difficulties. Patient blood sugars remaining to be fluctuating. She is on Ozempic and Prandin at home. We will increase Prandin to 4,4, and 3 and instructed to bring in Ozempic and thick for Monday administration. 05/05: He is sitting up in chair with family at the bedside. Blood sugars continue to fluctuate. She was given the Prandin we will increase the dose to her home dosage that she is able to tolerate. Discussed with patient the importance of doing brain activities to keep brain active. Patient is able to name her and daughter but does not know her daughter's name. Patient is able to recognize her doctor. There is swelling to the right lower upper thigh that is increased from yesterday. Denies any pain to the calf no redness noted. Patient is scheduled to have an ultrasound to rule out any blood clots. 05/06: Patient remains quite confused. She refuses to take her medications this morning. Family has brought and her home medication of Ozempic which will be ordered and continued at the residential as well. Patient has been afebrile, heart rate 100, blood pressure 180/85, pulse ox 90% on room air. Blood sugars running between 166 and 343. Levemir increased to 15 units. Anticipate discharge to [facility] once insurance authorization has been obtained. Medication reconciliation has been completed. 05/07: Patient has been afebrile, blood pressure 140/75, heart rate 95, pulse ox 98% on room air. Patient is currently waiting for acceptance at [facility] and insurance authorization. Blood sugars are running 157-252. Blood sugars are improved after resuming Ozempic. Patient has had no episodes of hypoglycemia. No change in her discharge medications. Right lower extremity negative for DVT on ultrasound. Patient did work with physical therapy got up to a chair. Awaiting insurance authorization. is at bedside and has been updated. 05/08: We anticipate that insurance authorization will be obtained today. Patient did work with physical therapy yesterday and required total assistance of 2. Patient has been afebrile, heart rate 104, blood pressure 132/76, pulse ox 97% on room air. Capillary blood glucose running between 143-286. No episodes of hypoglycemia. No change in her diabetic medication. We will decrease lisinopril to 10 mg twice daily. Patient is found sitting up in a chair and appears to be very comfortable. She is very interactive today and smiling. is at bedside. Patient will be discharged to [facility] once all arrangements are completed. Discharge diagnoses: 1. Intertrochanteric fracture right hip status post IT nail. 2. Hyperlipidemia. 3. Hypertension. 4. History of paroxysmal atrial fibrillation, in normal sinus. 5. Dementia. 6. Acute delirium secondary to underlying dementia and hospitalization. 7. Osteoporosis. 8. Diabetes mellitus type 2 uncontrolled with hyperglycemia. Discharge plan: [facility] Impression and plan of care have been directed as dictated by the signing physician. Pati Tillman nurse practitioner acting as scribe for signing physician. Patient Condition at Discharge: Good Plan - Discharge Summary Discharge Rx Participant: No New Discharge Prescriptions: New HYDROcodone/APAP 5-325MG [Shelby 5-325] 1 - 2 each PO Q4-6H PRN #50 tab PRN Reason: Pain Sennosides-Docusate Sodium [Senokot-S] 1 tab PO BID #60 tablet Insulin Detemir (Levemir) [Levemir] 15 unit SQ HS syr INSULIN ASPART (NovoLOG) [NovoLOG (formulary)] 0 unit SQ ACHS vial Repaglinide [Prandin] 5 mg PO AC-BID@0730,1230 tab Repaglinide [Prandin] 3 mg PO AC-SUPPER tab ALPRAZolam [Xanax] 0.25 mg PO BID PRN 3 Days #6 tab PRN Reason: Anxiety Semaglutide [Ozempic] 1 mg SQ MO #1 pen.injctr Continue Lisinopril [Zestril] 20 mg PO BID Atorvastatin [Lipitor] 5 mg PO HS Carvedilol [Coreg] 3.125 mg PO DAILY Latanoprost [Xalatan 0.005%] 1 drop BOTH EYES HS Cefuroxime [Ceftin] 250 mg PO BID #6 tablet Changed Aspirin [Adult Low Dose Aspirin EC] 81 mg PO BID #0 Mirtazapine [Remeron] 15 mg PO 1800 #0 Discontinued Raloxifene [Evista] 60 mg PO HS Magnesium Oxide [Mag-Ox] 400 mg PO HS Multivitamins, Thera [Multivitamin (formulary)] 1 tab PO DAILY Donepezil 23mg 23 mg PO HS Cyanocobalamin (Vitamin B-12) [Vitamin B-12] 2,500 mcg PO DAILY Insulin Glargine [Lantus] 18 units SQ HS Discharge Medication List Atorvastatin [Lipitor] 5 mg PO HS 09/28/15 [History] Carvedilol [Coreg] 3.125 mg PO DAILY 09/28/15 [History] Lisinopril [Zestril] 20 mg PO BID 09/28/15 [History] Latanoprost [Xalatan 0.005%] 1 drop BOTH EYES HS 05/02/19 [History] ALPRAZolam [Xanax] 0.25 mg PO BID PRN 3 Days #6 tab 05/06/19 [Rx] Aspirin [Adult Low Dose Aspirin EC] 81 mg PO BID #0 05/06/19 [Rx] Cefuroxime [Ceftin] 250 mg PO BID #6 tablet 05/06/19 [Rx] HYDROcodone/APAP 5-325MG [Shelby 5-325] 1 - 2 each PO Q4-6H PRN #50 tab 05/06/19 [Rx] INSULIN ASPART (NovoLOG) [NovoLOG (formulary)] 0 unit SQ ACHS vial 05/06/19 [Rx] Insulin Detemir (Levemir) [Levemir] 15 unit SQ HS syr 05/06/19 [Rx] Mirtazapine [Remeron] 15 mg PO 1800 #0 05/06/19 [Rx] Repaglinide [Prandin] 3 mg PO AC-SUPPER tab 05/06/19 [Rx] Repaglinide [Prandin] 5 mg PO AC-BID@0730,1230 tab 05/06/19 [Rx] Semaglutide [Ozempic] 1 mg SQ MO #1 pen.injctr 05/06/19 [Rx] Sennosides-Docusate Sodium [Senokot-S] 1 tab PO BID #60 tablet 05/06/19 [Rx] Follow up Appointment(s)/Referral(s): Staci Verdin MD [Primary Care Provider] - 1 Week (after discharge from rehab) Ale Pimentel, [NON-STAFF] - As Needed Haile Lawson MD [STAFF PHYSICIAN] - 05/20/19 9:30 am (Patient may follow-up with Dr. Lawson at [facility] in 2-3 weeks following discharge. ) Discharge Disposition: TRANSFER TO SNF/ECF
[2019-05-08 11:52] LABS: Glucose,Whole Blood 220 mg/dL (75-99)
[2019-05-08 16:35] LABS: Glucose,Whole Blood 146 mg/dL (75-99)
[2019-05-08] MEDS: HYDROcodone/APAP 5-325MG 1 EACH TAB PO PRN (19:22)
[2019-05-08 20:17] LABS: Glucose,Whole Blood 182 mg/dL (75-99)
[2019-05-08] MEDS: LATANOPROST 0.005% OPHTH DROPS 2.5 ML BTL BOTH EYES SCH (20:34)
[2019-05-08] MEDS: ATORVASTATIN 10 MG TAB PO SCH (20:37)
[2019-05-08] MEDS: DONEPEZIL 10 MG TAB PO SCH (20:38)
[2019-05-08] MEDS: MIRTAZAPINE 15 MG TAB PO SCH (20:39)
[2019-05-08] MEDS: LISINOPRIL 10 MG TAB PO SCH (20:40)
[2019-05-08] MEDS: SENNOSIDES-DOCUSATE SODIUM 1 EACH TAB PO SCH (20:41)
[2019-05-08] MEDS: MAGNESIUM OXIDE 400 MG TAB PO SCH (20:41)
[2019-05-08] MEDS: INSULIN DETEMIR (LEVEMIR) 100 UNIT/ML SYR SQ SCH (20:54)
[2019-05-09 06:46] LABS: Glucose,Whole Blood 165 mg/dL (75-99)
[2019-05-09] MEDS: FAMOTIDINE 20 MG TAB PO SCH (07:22)
[2019-05-09] MEDS: CEPHALEXIN 500 MG CAP PO SCH ×4 (07:22→20:36)
[2019-05-09] MEDS: LISINOPRIL 10 MG TAB PO SCH ×2 (07:22→20:36)
[2019-05-09] MEDS: CYANOCOBALAMIN 500 MCG TAB PO SCH (07:23)
[2019-05-09] MEDS: MULTIVITAMINS, THERA 1 EACH TAB PO SCH (07:23)
[2019-05-09] MEDS: CARVEDILOL 3.125 MG TAB PO SCH (07:23)
[2019-05-09] MEDS: ASPIRIN 325 MG TAB PO SCH (07:23)
[2019-05-09] MEDS: REPAGLINIDE 1 MG TAB PO SCH ×3 (07:24→17:17)
[2019-05-09] MEDS: INSULIN ASPART (NovoLOG) 100 UNIT/ML VIAL SQ SCH ×4 (07:25→20:36)
--- NOTE | 2019-05-09 08:15 | P.PN ---
Subjective Progress Note Date: 05/08/19 This is a 74-year-old female patient of Dr. Verdin with past medical history of paroxysmal atrial fibrillation, dementia, diabetes mellitus type 2, hypertension, hyperlipidemia, obstructive sleep apnea. Patient resides at home with her . She had a recent hospitalization and discharged home on April 28. She was treated for dehydration secondary to diarrhea, possible urinary tract infection, metabolic encephalopathy. She was also seen by orthopedics for trigger finger. The patient had a fall at home, mechanical fall in the branch. No head injury or loss consciousness. Patient was complaining of pain in her right hip and EMS was called and patient was brought into [facility] emergency center for evaluation. Pelvis and right hip x-rays revealed a slightly comminuted intratrochanteric fracture of the right hip. No other fractures identified. WBC 6.7, hemoglobin 11.5, platelet count 170. Electrolytes and renal function within normal limits, blood sugar 240. Temperature maximum 100.7, blood pressure 157/70, heart rate 95, pulse ox 98% on room air. In the emergency center, patient received Valium 5 mg 2 and was started on IV Ativan and morphine. Home medications will be resumed. Patient has been seen by orthopedics with plan for closed reduction and insertion of intertrochanteric nail of the right hip. Patient is scheduled for surgical intervention tomorrow. 05/03: Patient has been afebrile, blood pressure 150/71, pulse ox 94% on room ai r, heart rate 93. Hemoglobin 10.1, WBC 9.1, platelet count 167, electrolytes and renal function within normal limits. Blood sugar running between 98 and 188. Patient is scheduled for intratrochanteric nail on the right hip today with orthopedics. No new complaints. 05/04: She is sitting up in chair with family at the bedside. Patient is able to answer most questions appropriately. She knows her and daughter are at the bedside. However she does not know the daughter's name. Patient was able to identify Dr. Verdin without any difficulties. Patient blood sugars remaining to be fluctuating. She is on Ozempic and Prandin at home. We will increase Prandin to 4,4, and 3 and instructed to bring in Ozempic and thick for Monday administration. 05/05: He is sitting up in chair with family at the bedside. Blood sugars continue to fluctuate. She was given the Prandin we will increase the dose to her home dosage that she is able to tolerate. Discussed with patient the imp ortance of doing brain activities to keep brain active. Patient is able to name her and daughter but does not know her daughter's name. Patient is able to recognize her doctor. There is swelling to the right lower upper thigh that is increased from yesterday. Denies any pain to the calf no redness noted. Patient is scheduled to have an ultrasound to rule out any blood clots. 05/06: Patient remains quite confused. She refuses to take her medications this morning. Family has brought and her home medication of Ozempic which will be ordered and continued at the alf as well. Patient has been afebrile, heart rate 100, blood pressure 180/85, pulse ox 90% on room air. Blood sugars running between 166 and 343. Levemir increased to 15 units. Anticipate discharge to [facility] once insurance authorization has been obtained. Medication reconciliation has been completed. 05/07: Patient has been afebrile, blood pressure 140/75, heart rate 95, pulse ox 98% on room air. Patient is currently waiting for acceptance at [facility] and insurance authorization. Blood sugars are running 157-252. Blood sugars are improved after resuming Ozempic. Patient has had no episodes of hypoglycemia. No change in her discharge medications. Right lower extremity negative for DVT on ultrasound. Patient did work with physical therapy got up to a chair. Awaiting insurance authorization. is at bedside and has been updated. 05/08: We anticipate that insurance authorization will be obtained today. Patient did work with physical therapy yesterday and required total assistance of 2. Patient has been afebrile, heart rate 104, blood pressure 132/76, pulse ox 97% on room air. Capillary blood glucose running between 143-286. No episodes of hypoglycemia. No change in her diabetic medication. We will decrease lisinopril to 10 mg twice daily. Patient is found sitting up in a chair and appears to be very comfortable. She is very interactive today and smiling. is at bedside. Patient will be discharged to [facility] once all arrangements are completed. Review Of Systems: Constitutional: No fever, no chills, no night sweats. No weight change. Report weakness, fatigue or lethargy. No daytime sleepiness. EENT: No headache. No blurred vision or double vision, no loss of vision. No loss of Hearing, no ringing in the ears, no dizziness. No nasal drainage or congestion. No epistaxis. No sore throat. Lungs: No shortness of breath, cough, no sputum production. No wheezing. Cardiovascular: No chest pain, no lower extremity edema. No palpitations. No p aroxysmal nocturnal dyspnea. No orthopnea. No lightheadedness or dizziness. No syncopal episodes. Abdominal: No abdominal pain. No nausea, vomiting. No diarrhea. No constipation. No bloody or tarry stools.. No loss of appetite. Genitourinary: No dysuria, increased frequency, urgency. No urinary retention. Musculoskeletal: No myalgias. No muscle weakness, no gait dysfunction, no frequent falls. No back pain. No neck pain. Integumentary: No wounds, no lesions. No rash or pruritus. No unusual bruising. No change in hair or nails. Neurologic: No aphasia. No facial droop. No change in mentation-pleasantly confused. No head injury. No headache. No paralysis. No paresthesia. Psychiatric: No depression. No anxiety. No mood swings. Endocrine: No abnormal blood sugars. No weight change. No excessive sweating or thirst. No cold intolerance. Objective - Vital Signs Vital signs: Vital Signs Temp 99.3 F 05/08/19 07:00 Pulse 104 H 05/08/19 07:00 Resp 16 05/08/19 07:00 BP 132/76 05/08/19 07:00 Pulse Ox 97 05/08/19 07:00 Intake & Output 05/07/19 05/08/19 05/08/19 18:59 06:59 18:59 Intake Total 20 Output Total 400 300 Balance -400 -280 Intake: Oral 20 Output: Urine 400 300 Straight 400 300 Other: Voiding Method Bedpan Diaper # Voids 0 0 - Exam Gen: This is a 74-year-old female. Patient is awake and alert sitting in a chair. is at bedside. HEENT: Head is atraumatic, normocephalic. Pupils equal, round. Sclerae is anicteric. NECK: Supple. No JVD. No lymphadenopathy. No thyromegaly. LUNGS: Clear to auscultation. No wheezes or rhonchi. No intercostal retractio ns. HEART: Regular rate and rhythm. No murmur. ABDOMEN: Soft. Bowel sounds are present. No masses. No tenderness. EXTREMITIES: No pedal edema. No calf tenderness. Dressing in place to the right hip area. Dorsalis pedis +2 bilaterally. NEUROLOGICAL: Patient is awake, oriented to person. Cranial nerves 2 through 12 are grossly intact. - Labs CBC & Chem 7: 05/05/19 08:12 05/03/19 06:42 Labs: Abnormal Lab Results - Last 24 Hours (Table) 05/07/19 05/07/19 05/07/19 Range/Units 11:22 16:32 20:20 POC Glucose (mg/dL) 222 H 250 H 286 H (75-99) mg/dL 05/08/19 Range/Units 07:01 POC Glucose (mg/dL) 143 H (75-99) mg/dL Assessment and Plan Plan: 1. Intertrochanteric fracture right hip status post IT nail. Orthopedic consult appreciated. Continue PT and OT. 2. Hyperlipidemia. Continue Lipitor. 3. Hypertension. Continue Coreg 3.125 mg daily. 4. History of paroxysmal atrial fibrillation, in normal sinus. Continue Coreg. 5. Dementia. Continue Aricept. 6. DVT prophylaxis. 7. GI prophylaxis. Pepcid. 8. Osteoporosis. Hold Evista. 9. Diabetes mellitus type 2. Continue Prandin 5 mg with breakfast lunch and 4 mg at supper. Ozempic resumed. Levemir increased to 15 units at bedtime. Discharge plan: [facility] once insurance authorization has been obtained. Impression and plan of care have been directed as dictated by the signing physician. Pati Tillman nurse practitioner acting as scribe for signing physician.
[2019-05-09 11:35] LABS: Glucose,Whole Blood 302 mg/dL (75-99)
[2019-05-09] MEDS ORDERED: ALPRAZolam 0.25 MG TAB PO PRN (11:50)
[2019-05-09] MEDS: LINAGLIPTIN 5 MG TABLET PO SCH (11:57)
[2019-05-09] MEDS: HYDROcodone/APAP 5-325MG 1 EACH TAB PO PRN (11:58)
[2019-05-09 16:55] LABS: Glucose,Whole Blood 287 mg/dL (75-99)
[2019-05-09 19:23] VITALS: RESP 16
[2019-05-09 20:21] LABS: Glucose,Whole Blood 123 mg/dL (75-99)
[2019-05-09] MEDS: LATANOPROST 0.005% OPHTH DROPS 2.5 ML BTL BOTH EYES SCH (20:35)
[2019-05-09] MEDS: DONEPEZIL 10 MG TAB PO SCH (20:35)
[2019-05-09] MEDS: INSULIN DETEMIR (LEVEMIR) 100 UNIT/ML SYR SQ SCH (20:35)
[2019-05-09] MEDS: ATORVASTATIN 10 MG TAB PO SCH (20:35)
[2019-05-09] MEDS: MIRTAZAPINE 15 MG TAB PO SCH (20:36)
[2019-05-09] MEDS: MAGNESIUM OXIDE 400 MG TAB PO SCH (20:36)
[2019-05-09] MEDS: SENNOSIDES-DOCUSATE SODIUM 1 EACH TAB PO SCH (20:36)
[2019-05-10 06:50] LABS: Glucose,Whole Blood 84 mg/dL (75-99)
[2019-05-10] MEDS: INSULIN ASPART (NovoLOG) 100 UNIT/ML VIAL SQ SCH ×2 (07:24→11:56)
[2019-05-10 07:30] VITALS: BP 138/82; PULSE 96; TEMP 98.7
[2019-05-10] MEDS: HYDROcodone/APAP 5-325MG 1 EACH TAB PO PRN (07:32)
[2019-05-10] MEDS: LINAGLIPTIN 5 MG TABLET PO SCH (07:33)
[2019-05-10] MEDS: CARVEDILOL 3.125 MG TAB PO SCH (07:33)
[2019-05-10] MEDS: CEPHALEXIN 500 MG CAP PO SCH ×2 (07:33→11:56)
[2019-05-10] MEDS: ASPIRIN 325 MG TAB PO SCH (07:33)
[2019-05-10] MEDS: FAMOTIDINE 20 MG TAB PO SCH (07:34)
[2019-05-10] MEDS: MULTIVITAMINS, THERA 1 EACH TAB PO SCH (07:34)
[2019-05-10] MEDS: LISINOPRIL 10 MG TAB PO SCH (07:34)
[2019-05-10] MEDS: CYANOCOBALAMIN 500 MCG TAB PO SCH (07:34)
[2019-05-10] MEDS: REPAGLINIDE 1 MG TAB PO SCH ×2 (07:35→11:56)
[2019-05-10 11:53] LABS: Glucose,Whole Blood 142 mg/dL (75-99)
[2019-05-10] MEDS ORDERED: INSULIN ASPART (NovoLOG) 100 UNIT/ML VIAL SQ SCH (17:30)
== END 2019-05-10 16:39 | DRG 481 ==
LOC: EC 22:41 → 5NMEDONC 05-02 00:11 → 4SSUR 05-02 13:54
PROVIDERS: ADMIT Internal Medicine; ATTEND Internal Medicine
PROC: 0QS636Z Reposition Right Upper Femur with Intramedullary Internal Fixation Device, Percutaneous Approach (ICD-10-PCS; principal; 2019-05-03 13:20)
DX: S72.141A Displaced intertrochanteric fracture of right femur, initial encounter for closed fracture (principal); F05 Delirium due to known physiological condition; I48.0 Paroxysmal atrial fibrillation; F03.90 Unspecified dementia, unspecified severity, without behavioral disturbance, psychotic disturbance, mood disturbance, and anxiety; G47.33 Obstructive sleep apnea (adult) (pediatric); R33.9 Retention of urine, unspecified; E78.5 Hyperlipidemia, unspecified; I10 Essential (primary) hypertension; M81.0 Age-related osteoporosis without current pathological fracture; E11.65 Type 2 diabetes mellitus with hyperglycemia; W10.9XXA Fall (on) (from) unspecified stairs and steps, initial encounter; Y92.009 Unspecified place in unspecified non-institutional (private) residence as the place of occurrence of the external cause; Z99.89 Dependence on other enabling machines and devices; Z79.899 Other long term (current) drug therapy; Z79.82 Long term (current) use of aspirin; Z79.4 Long term (current) use of insulin; Z87.440 Personal history of urinary (tract) infections; Z98.42 Cataract extraction status, left eye; Z98.41 Cataract extraction status, right eye; Z80.49 Family history of malignant neoplasm of other genital organs; Z80.3 Family history of malignant neoplasm of breast; Z82.3 Family history of stroke; Z83.3 Family history of diabetes mellitus
CPT/HCPCS: 36415; 71045; 73502; 80048; 80053; 81003; 83036; 85025; 85027; 85610; 85730; 86850; 86900; 86901; 93005; 94760; 96374; 96375; 99285

== ENCOUNTER 2019-05-22 17:00 | Inpatient (IN) | payer MEDICARE ==
[2019-05-22] MEDS: SODIUM CHLORIDE 0.9% 500 ML 500 ML IV SCH ×2 (17:34→17:35)
[2019-05-22 17:53] LABS: Basophils # (A) 0.1 k/uL (0-0.2); Basophils % (A) 0 %; Eosinophils % (A) 0 %; HCT 41.5 % (34.0-46.0); HGB 12.8 gm/dL (11.4-16.0); Hypochromasia Moderate; Lymphocytes # (A) 0.8 k/uL (1.0-4.8); Lymphocytes % (A) 5 %; MCH 29.5 pg (25.0-35.0); MCHC 30.9 g/dL (31.0-37.0); MCV 95.6 fL (80.0-100.0); Mean Platelet Volume 8.2; Monocytes # (A) 0.9 k/uL (0-1.0); Monocytes % (A) 5 %; Neutrophils # (A) 16.4 k/uL (1.3-7.7); Neutrophils % (A) 89 %; Platelet Count 562 k/uL (150-450); RBC 4.34 m/uL (3.80-5.40); RDW 14.3 % (11.5-15.5); WBC 18.4 k/uL (3.8-10.6)
[2019-05-22 17:59] LABS: Appearance,Urine Cloudy (Clear); Bacteria,Urine Many /hpf; Bilirubin,Urine Negative (Negative); Blood,Urine Moderate (Negative); Color,Urine Dark Yellow; Glucose,Urine (UA) 4+ (Negative); Ketones,Urine Trace (Negative); Leukocyte Esterase,Urine Large (Negative); Mucus,Urine Many /hpf; Nitrite,Urine Negative (Negative); Protein,Urine 1+ (Negative); RBC,Urine 32 /hpf (0-5); Specific Gravity,Urine 1.019 (1.001-1.035); Squamous Epithelial Cell,Urine 16 /hpf (0-4); WBC,Urine 170 /hpf (0-5)
[2019-05-22 18:08] LABS: Prothrombin Time 10.1 sec (9.0-12.0)
--- NOTE | 2019-05-22 18:17 | ED ---
General Adult HPI - General Chief complaint: GI Bleed Stated complaint: hypotension, diarrhea Time Seen by Provider: 05/22/19 17:10 Source: EMS Mode of arrival: EMS Limitations: no limitations - History of Present Illness Initial comments: The patient is a 74-year-old female past history of dementia, A. fib, diabetes and hypertension who presents to the emergency department from [facility]. She was transferred for low blood pressure. They recorded a 60 systolic blood pressure and called EMS who also obtained a similar measurement. The patient cannot provide a history. Staff stated that she was having profuse diarrhea and they were concerned for GI bleed. The patient is at [facility] currently because she fell and had a hip replacement done earlier this month. Family states that she was having issues with constipation. 2 days ago they did provide her with something in order to have a bowel movement and stated that afterwards she developed this profuse watery diarrhea. She is currently on antibiotics for a urinary tract infection. No recorded fevers or chills. No change in the patient's mentation from what it has been. The remainder of the HPI is limited because the patient's medical condition - Related Data Previous Rx's Medication Instructions Recorded Atropine Ophth Soln 1% 5Ml [Isopto 2 drops SUBLINGUAL Q4HR PRN bottle 05/28/19 Atropine 1% 5Ml] LORazepam [Ativan] 0.5 mg PO Q4HR PRN #18 tab 05/28/19 MORPHINE ORAL DOUG CONC 20mg/mL 10 mg PO Q4H PRN #30 ml 05/28/19 [Roxanol Oral Soln Conc 20MG/ML] Scopolamine 1.5MG/72Hr Patch 1 patch TRANSDERM Q72H #10 patch 05/28/19 [TransDerm Scop] Allergies Allergy/AdvReac Type Severity Reaction Status Date / Time No Known Allergies Allergy Verified 05/22/19 20:50 Review of Systems ROS Statement: Those systems with pertinent positive or pertinent negative responses have been documented in the HPI. ROS Other: All systems not noted in ROS Statement are negative. Past Medical History Past Medical History: Atrial Fibrillation, Dementia, Diabetes Mellitus, Hyperlipidemia, Hypertension, Sleep Apnea/CPAP/BIPAP Additional Past Medical History / Comment(s): wt loss of 183# down to 123# over last year,no appetite,scratches skin frequently causing some sores,has cpap History of Any Multi-Drug Resistant Organisms: None Reported Past Surgical History: No Surgical Hx Reported Additional Past Surgical History / Comment(s): mark cataracts,rt retinal repair Past Anesthesia/Blood Transfusion Reactions: No Reported Reaction Past Psychological History: No Psychological Hx Reported Smoking Status: Never smoker Past Alcohol Use History: None Reported Past Drug Use History: None Reported - Past Family History Mother Family Medical History: Cancer Additional Family Medical History / Comment(s): Mother at age 57 from uterine cancer. Father Family Medical History: Cancer Additional Family Medical History / Comment(s): Father in his 70s from cancer with metastatic disease to the brain. Sister(s) Family Medical History: CVA/TIA, Dementia Additional Family Medical History / Comment(s): Patient has 2 sisters. One sister has dementia and one sister with breast cancer. Patient has 2 brothers with no major medical problems. Patient has 2 daughters and one has diabetes and one son with no major medical problems. General Exam Limitations: altered mental status General appearance: alert, other (opens eyes to verbal command. Does not answer questions appropriately. Oriented to self. Hands are aggressively scratching genitals. Hands are covered in feces) Head exam: Present: atraumatic, normocephalic Eye exam: Present: PERRL, EOMI ENT exam: Present: mucous membranes dry Neck exam: Absent: tenderness, meningismus Respiratory exam: Present: rales. Absent: respiratory distress Cardiovascular Exam: Present: regular rate, normal rhythm GI/Abdominal exam: Present: soft. Absent: tenderness, guarding, rebound Rectal exam: Present: other (profuse liquid green stool, large stolid brown rectal stool ball. No melenic stools ) External exam: Present: other (diffuse red rash in inguinal folds with excoriation) Back exam: Present: normal inspection Neurological exam: Present: alert Psychiatric exam: Present: agitated Skin exam: Present: warm, dry Course Vital Signs 05/22/19 05/22/19 05/22/19 17:09 17:11 17:30 Pulse Rate 95 96 Respiratory 20 20 Rate Blood Pressure 117/69 128/104 O2 Sat by Pulse 98 96 98 Oximetry 05/22/19 05/22/19 05/22/19 18:00 18:30 19:00 Pulse Rate 95 86 94 Respiratory 20 20 20 Rate Blood Pressure 118/81 138/40 112/68 O2 Sat by Pulse 98 98 Oximetry 05/22/19 05/22/19 20:30 21:00 Pulse Rate 101 H 90 Respiratory 13 16 Rate Blood Pressure 131/47 125/50 O2 Sat by Pulse 98 Oximetry EKG Findings - EKG Comments: EKG Findings:: EKG demonstrates a normal sinus rhythm with a ventricular rate of 96. Para 124. QRS 68. QTC of 429. There are no acute ST segment elevations or depressions concerning for ischemic change. There are peaked T waves in V3 t hrough V5. Medical Decision Making - Medical Decision Making Upon arrival the patient was promptly placed in trauma bay 1. She is hooked up to continuous pulse ox and cardiac monitoring. Vitals are obtained and her blood pressure is noted to be 117/69. Peripheral IVs were established. The patient was given a liter bolus of normal saline. I did do a rectal exam which demonstrated liquid green stool. A sample is sent for C. diff testing. I did order laboratory studies and a urinalysis. The patient was also sent for a CT of her abdomen because of the concern for possible GI bleed. Laboratory studies demonstrated a white blood cell count of 18.4. Potassium is 5.2. BUN 73 with a creatinine of 1.9. This is changed from the patient's baseline of 0.8 which was on the 27th. Lactic acid is 3.6. Alk phos 149. Total bilirubin 1.5. Urinalysis shows 4+ glucose, large leukocyte Estrace, 32 red blood cells, 122 with a glucose, many white blood cell clumps, many bacteria. Fecal occult is negative. C. diff is negative. Influenza A and B are negative I did review the patient's previous urine cultures and they did not demonstrate sensitivities. I therefore obtained a blood culture and give patient a dose of Rocephin. Because of her markedly elevated kidney function I did perform a CT of her abdomen and pelvis without contrast. It demonstrates a dilated rectum with rectal fecal impaction. Chest x-ray was also performed which inserts no active cardiopulmonary disease. 12-lead EKG was performed. Because of the rectal im paction seen I did perform a digital rectal exam and disimpacted the patient. I called and discussed the case with Dr. Salvador who did accept admission for the patient. She will continue on IV fluids. The patient's family was in agreement with this treatment plan and the patient was transferred to the floor in stable condition - Lab Data Result diagrams: 05/24/19 07:16 05/24/19 07:16 Lab Results 05/22/19 05/22/19 05/22/19 Range/Units 17:22 17:22 17:22 WBC (3.8-10.6) k/uL RBC (3.80-5.40) m/uL Hgb (11.4-16.0) gm/dL Hct (34.0-46.0) % MCV (80.0-100.0) fL MCH (25.0-35.0) pg MCHC (31.0-37.0) g/dL RDW (11.5-15.5) % Plt Count (150-450) k/uL Neutrophils % % Lymphocytes % % Monocytes % % Eosinophils % % Basophils % % Neutrophils # (1.3-7.7) k/uL Lymphocytes # (1.0-4.8) k/uL Monocytes # (0-1.0) k/uL Eosinophils # (0-0.7) k/uL Basophils # (0-0.2) k/uL Hypochromasia PT (9.0-12.0) sec INR (<1.2) APTT (22.0-30.0) sec Sodium (137-145) mmol/L Potassium (3.5-5.1) mmol/L Chloride (98-107) mmol/L Carbon Dioxide (22-30) mmol/L Anion Gap mmol/L BUN (7-17) mg/dL Creatinine (0.52-1.04) mg/dL Est GFR (CKD-EPI)AfAm (>60 ml/min/1.73 sqM) Est GFR (CKD-EPI)NonAf (>60 ml/min/1.73 sqM) Glucose (74-99) mg/dL Lactic Ac Sepsis Rflx Plasma Lactic Acid Venkat (0.7-2.0) mmol/L Calcium (8.4-10.2) mg/dL Total Bilirubin (0.2-1.3) mg/dL AST (14-36) U/L ALT (4-34) U/L Alkaline Phosphatase (38-126) U/L Creatine Kinase (30-135) U/L Total Protein (6.3-8.2) g/dL Albumin (3.5-5.0) g/dL Urine Color Dark Yellow Urine Appearance Cloudy H (Clear) Urine pH 5.0 (5.0-8.0) Ur Specific [place] 1.019 (1.001-1.035) Urine Protein 1+ H (Negative) Urine Glucose (UA) 4+ H (Negative) Urine Ketones Trace H (Negative) Urine Blood Moderate H (Negative) Urine Nitrite Negative (Negative) Urine Bilirubin Negative (Negative) Urine Urobilinogen 4.0 (<2.0) mg/dL Ur Leukocyte Esterase Large H (Negative) Urine RBC 32 H (0-5) /hpf Urine WBC 170 H (0-5) /hpf Urine WBC Clumps Many H (None) /hpf Ur Squamous Epith Cells 16 H (0-4) /hpf Urine Bacteria Many H (None) /hpf Urine Mucus Many H (None) /hpf Stool Occult Blood Negative (Negative) C. difficile (EIA) Intrp Negative (Negative) Influenza Type A RNA Not Detected (Not Detectd) Influenza Type B (PCR) Not Detected (Not Detectd) Blood Type Blood Type Recheck Bld Type Recheck Status Antibody Screen Spec Expiration Date 05/22/19 05/22/19 05/22/19 Range/Units 17:40 17:40 17:40 WBC 18.4 H (3.8-10.6) k/uL RBC 4.34 (3.80-5.40) m/uL Hgb 12.8 (11.4-16.0) gm/dL Hct 41.5 (34.0-46.0) % MCV 95.6 (80.0-100.0) fL MCH 29.5 (25.0-35.0) pg MCHC 30.9 L (31.0-37.0) g/dL RDW 14.3 (11.5-15.5) % Plt Count 562 H (150-450) k/uL Neutrophils % 89 % Lymphocytes % 5 % Monocytes % 5 % Eosinophils % 0 % Basophils % 0 % Neutrophils # 16.4 H (1.3-7.7) k/uL Lymphocytes # 0.8 L (1.0-4.8) k/uL Monocytes # 0.9 (0-1.0) k/uL Eosinophils # 0.0 (0-0.7) k/uL Basophils # 0.1 (0-0.2) k/uL Hypochromasia Moderate PT (9.0-12.0) sec INR (<1.2) APTT (22.0-30.0) sec Sodium 145 (137-145) mmol/L Potassium 5.2 H (3.5-5.1) mmol/L Chloride 113 H (98-107) mmol/L Carbon Dioxide 23 (22-30) mmol/L Anion Gap 9 mmol/L BUN 73 H (7-17) mg/dL Creatinine 1.95 H (0.52-1.04) mg/dL Est GFR (CKD-EPI)AfAm 29 (>60 ml/min/1.73 sqM) Est GFR (CKD-EPI)NonAf 25 (>60 ml/min/1.73 sqM) Glucose 159 H (74-99) mg/dL Lactic Ac Sepsis Rflx Plasma Lactic Acid Venkat (0.7-2.0) mmol/L Calcium 10.5 H (8.4-10.2) mg/dL Total Bilirubin 1.5 H (0.2-1.3) mg/dL AST 23 (14-36) U/L ALT 14 (4-34) U/L Alkaline Phosphatase 149 H (38-126) U/L Creatine Kinase <20 L (30-135) U/L Total Protein 7.2 (6.3-8.2) g/dL Albumin 3.7 (3.5-5.0) g/dL Urine Color Urine Appearance (Clear) Urine pH (5.0-8.0) Ur Specific [place] (1.001-1.035) Urine Protein (Negative) Urine Glucose (UA) (Negative) Urine Ketones (Negative) Urine Blood (Negative) Urine Nitrite (Negative) Urine Bilirubin (Negative) Urine Urobilinogen (<2.0) mg/dL Ur Leukocyte Esterase (Negative) Urine RBC (0-5) /hpf Urine WBC (0-5) /hpf Urine WBC Clumps (None) /hpf Ur Squamous Epith Cells (0-4) /hpf Urine Bacteria (None) /hpf Urine Mucus (None) /hpf Stool Occult Blood (Negative) C. difficile (EIA) Intrp (Negative) Influenza Type A RNA (Not Detectd) Influenza Type B (PCR) (Not Detectd) Blood Type O Positive Blood Type Recheck O Pos Bld Type Recheck Status No Antibody Screen NEGATIVE Spec Expiration Date 05/25/2019 - 233905/22/19 05/22/19 05/22/19 Range/Units 17:40 17:40 18:36 WBC (3.8-10.6) k/uL RBC (3.80-5.40) m/uL Hgb (11.4-16.0) gm/dL Hct (34.0-46.0) % MCV (80.0-100.0) fL MCH (25.0-35.0) pg MCHC (31.0-37.0) g/dL RDW (11.5-15.5) % Plt Count (150-450) k/uL Neutrophils % % Lymphocytes % % Monocytes % % Eosinophils % % Basophils % % Neutrophils # (1.3-7.7) k/uL Lymphocytes # (1.0-4.8) k/uL Monocytes # (0-1.0) k/uL Eosinophils # (0-0.7) k/uL Basophils # (0-0.2) k/uL Hypochromasia PT 10.1 (9.0-12.0) sec INR 1.0 (<1.2) APTT 18.7 L (22.0-30.0) sec Sodium (137-145) mmol/L Potassium (3.5-5.1) mmol/L Chloride (98-107) mmol/L Carbon Dioxide (22-30) mmol/L Anion Gap mmol/L BUN (7-17) mg/dL Creatinine (0.52-1.04) mg/dL Est GFR (CKD-EPI)AfAm (>60 ml/min/1.73 sqM) Est GFR (CKD-EPI)NonAf (>60 ml/min/1.73 sqM) Glucose (74-99) mg/dL Lactic Ac Sepsis Rflx Y Plasma Lactic Acid Venkat 3.6 H* (0.7-2.0) mmol/L Calcium (8.4-10.2) mg/dL Total Bilirubin (0.2-1.3) mg/dL AST (14-36) U/L ALT (4-34) U/L Alkaline Phosphatase (38-126) U/L Creatine Kinase (30-135) U/L Total Protein (6.3-8.2) g/dL Albumin (3.5-5.0) g/dL Urine Color Urine Appearance (Clear) Urine pH (5.0-8.0) Ur Specific [place] (1.001-1.035) Urine Protein (Negative) Urine Glucose (UA) (Negative) Urine Ketones (Negative) Urine Blood (Negative) Urine Nitrite (Negative) Urine Bilirubin (Negative) Urine Urobilinogen (<2.0) mg/dL Ur Leukocyte Esterase (Negative) Urine RBC (0-5) /hpf Urine WBC (0-5) /hpf Urine WBC Clumps (None) /hpf Ur Squamous Epith Cells (0-4) /hpf Urine Bacteria (None) /hpf Urine Mucus (None) /hpf Stool Occult Blood (Negative) C. difficile (EIA) Intrp (Negative) Influenza Type A RNA (Not Detectd) Influenza Type B (PCR) (Not Detectd) Blood Type Blood Type Recheck Bld Type Recheck Status Antibody Screen Spec Expiration Date Disposition Clinical Impression: Leukocytosis, UTI (urinary tract infection), Altered mental state, Dehydration, PHUONG (acute kidney injury), Lactic acidosis, Fecal retention Disposition: ADMITTED IP TO THIS [facility] Condition: Stable Is patient prescribed a controlled substance at d/c from ED?: No Decision to Admit Reason: Admit from EC Decision Date: 05/22/19 Decision Time: 20:19
[2019-05-22 18:18] LABS: Partial Thromboplastin Time 18.7 sec (22.0-30.0)
[2019-05-22 18:33] LABS: ALT 14 U/L (4-34); AST 23 U/L (14-36); African American GFR (CKD) 29 (>60 ml/min/1.73 sqM); Albumin 3.7 g/dL (3.5-5.0); Alkaline Phosphatase 149 U/L (38-126); Anion Gap 9 mmol/L; Blood Urea Nitrogen 73 mg/dL (7-17); Calcium 10.5 mg/dL (8.4-10.2); Carbon Dioxide 23 mmol/L (22-30); Chloride 113 mmol/L (98-107); Creatine Kinase <20 U/L (30-135); Glucose 159 mg/dL (74-99); Non-African American GFR(CKD) 25 (>60 ml/min/1.73 sqM); Potassium 5.2 mmol/L (3.5-5.1); Sodium 145 mmol/L (137-145); Total Bilirubin 1.5 mg/dL (0.2-1.3); Total Protein 7.2 g/dL (6.3-8.2)
[2019-05-22] MEDS ORDERED: cefTRIAXone IN SWFI 1,000 MG/10 ML SYRINGE IVP STA (19:38)
--- NOTE | 2019-05-22 19:40 | CT ---
EXAMINATION TYPE: CT abdomen pelvis wo con DATE OF EXAM: 05/22/2019 COMPARISON: 12/12/2018 HISTORY: diarrhea CT DLP: 908.4 mGycm Automated exposure control for dose reduction was used. Multiple axial sections were obtained from the diaphragm to the floor the pelvis with no contrast. Lung bases are clear of infiltrate. There is no pleural effusion. There is no pericardial effusion. L iver and spleen appear normal. There is no pancreatic mass. There is fatty infiltration of the pancre as. Gallbladder is distended and measures 3.5 cm. There is no adrenal mass. Kidneys have normal size and contour. There is no hydronephrosis. There is no retroperitoneal adenopathy. Appendix appears normal. There is some air in the urinary bladder probably from catheterization. There is a moderately dilated rectum with fecal material that measures 10.4 cm. There is no mesenteric edema. There is no ascites. There is no sign of free air. There is no inguinal hernia. There is metal artifact from right hip nailing. Lumbar vertebra have fairly normal alignment. There is no compression fracture. IMPRESSION: Dilated rectum with rectal fecal impaction. Urinary bladder air consistent with catheterization. Fecal impaction is new compared to old exam.
--- NOTE | 2019-05-22 19:42 | XR ---
EXAMINATION TYPE: XR chest 2V DATE OF EXAM: 05/22/2019 COMPARISON: May 01, 2019 HISTORY: Right hip pain TECHNIQUE: FINDINGS: Heart and mediastinum are within normal limits. Lungs are clear of infiltrate. There is no heart failure. There is 8 mm granuloma in the left lower lobe. There are chest leads. IMPRESSION: No active cardiopulmonary disease. Normal heart. No change.
[2019-05-22] MEDS ORDERED: NA PHOS,M-B/NA PHOS,DI-BA 133 ML ENEMA RECTAL PRN ×2 (20:19→22:32)
[2019-05-22] MEDS ORDERED: NALOXONE 0.4 MG/ML 1 ML VIAL IV PRN (20:19)
[2019-05-22] MEDS: NYSTATIN 100,000 UNIT/GM POWD 15 GM TOPICAL SCH (22:20)
[2019-05-22] MEDS ORDERED: BISACODYL 10 MG SUPP RECTAL PRN (22:32)
[2019-05-22] MEDS ORDERED: MAGNESIUM HYDROXIDE 2,400 MG/10 ML CUP PO PRN (22:32)
[2019-05-22] MEDS ORDERED: HYDROcodone/APAP 5-325MG 1 EACH TAB PO PRN (22:32)
[2019-05-22] MEDS ORDERED: ACETAMINOPHEN TAB 325 MG TAB PO PRN (22:32)
[2019-05-22] MEDS: SODIUM CHLORIDE 0.9% 1,000 ML IV SCH (23:29)
[2019-05-23] MEDS: ALPRAZolam 0.25 MG TAB PO PRN ×3 (01:10→21:32)
[2019-05-23 03:13] LABS: Basophils % (A) 0 %; Eosinophils % (A) 0 %; HCT 39.1 % (34.0-46.0); HGB 11.8 gm/dL (11.4-16.0); Hypochromasia Marked; Lymphocytes # (A) 0.7 k/uL (1.0-4.8); Lymphocytes % (A) 4 %; MCH 29.9 pg (25.0-35.0); MCHC 30.3 g/dL (31.0-37.0); MCV 98.8 fL (80.0-100.0); Macrocytosis Slight; Mean Platelet Volume 8.8; Monocytes # (A) 0.9 k/uL (0-1.0); Monocytes % (A) 5 %; Neutrophils # (A) 16.3 k/uL (1.3-7.7); Neutrophils % (A) 90 %; Platelet Count 375 k/uL (150-450); RBC 3.96 m/uL (3.80-5.40); RDW 14.2 % (11.5-15.5); WBC 18.1 k/uL (3.8-10.6)
[2019-05-23 03:23] LABS: Calcium 9.1 mg/dL (8.4-10.2); Potassium 5.7 mmol/L (3.5-5.1)
[2019-05-23] MEDS: SODIUM CHLORIDE 0.9% 1,000 ML IV SCH ×2 (05:10→16:17)
[2019-05-23] MEDS ORDERED: NON FORMULARY DRUG (Glucerna Shake 237 ML) PO SCH (08:00)
[2019-05-23] MEDS ORDERED: SENNOSIDES-DOCUSATE SODIUM 1 EACH TAB PO SCH (08:00)
[2019-05-23] MEDS ORDERED: ASPIRIN 81 MG PO SCH (08:00)
[2019-05-23] MEDS ORDERED: CEFDINIR 300 MG CAP PO SCH (08:00)
[2019-05-23] MEDS ORDERED: LORazepam 2 MG/ML INJ IV STA (08:28)
[2019-05-23] MEDS: INSULIN ASPART (NovoLOG) 100 UNIT/ML VIAL SQ SCH ×6 (08:37→21:33)
[2019-05-23] MEDS: LISINOPRIL 10 MG TAB PO SCH ×2 (08:53→09:07)
[2019-05-23] MEDS: FERROUS SULFATE 325 MG TAB PO SCH ×2 (08:53→16:18)
[2019-05-23] MEDS: CARVEDILOL 3.125 MG TAB PO SCH ×2 (08:53→09:07)
[2019-05-23] MEDS: TRIAMCINOLONE ACET 0.5% CREAM 15 GM TUBE TOPICAL SCH ×2 (08:54→21:35)
[2019-05-23] MEDS: NYSTATIN 100,000 UNIT/GM POWD 15 GM TOPICAL SCH ×2 (08:54→21:36)
[2019-05-23 11:09] LABS: Glucose,Whole Blood 343 mg/dL (75-99)
[2019-05-23] MEDS: risperiDONE 0.25 MG TAB PO SCH ×2 (11:37→21:34)
--- NOTE | 2019-05-23 12:21 | P.HPIM ---
History of Present Illness H&P Date: 05/23/19 This is a 74-year-old female patient of Dr. Verdin with past medical history of paroxysmal atrial fibrillation, advanced dementia, diabetes mellitus type 2, hypertension, hyperlipidemia, obstructive sleep apnea. Patient has had 2 recent hospitalization one due to dehydration secondary to diarrhea and possible urinary tract infection with metabolic encephalopathy. Patient return to the hospital due to a fall found to have an intertrochanteric fracture of the right hip status post IT nail and patient was discharge to [facility] for subacute rehab on May 10. Patient was transferred to [facility] emergency center due to low blood pressure of 60 systolic. Patient fairly has had profuse diarrhea and there is concern for GI bleed. Patient previously had issues with constipation and is on stool softeners followed by bowel movements and then profuse watery diarrhea. Patient's had no fever or chills. Patient found to be afebrile, vital signs stable, initial blood pressure 117/69 and heart rate of 95, pulse ox 96%. EKG was in normal sinus rhythm with no acute ST-T wave changes. WBC 18.4, hemoglobin 12.8, platelet count 562. Potassium 5.2, chloride 113, BUN 73 and creatinine 1.95, blood sugar 159. Influenza testing negative, C. difficile toxin negative, stool for occult blood negative. Urinalysis showed moderate blood, leukoesterase large, 3 BC 170, WBC clumps many, bacteria many. Total bilirubin 1.5, alkaline phosphatase 149. Initial lactic acid 3.6 and currently at 1.8. Patient has a sitter at the bedside as she is clear hands into her depends and trying to eat her feces. Family is looking at returning to [facility] is long-term care. Review of Systems ROS unobtainable: due to mental status Past Medical History Past Medical History: Atrial Fibrillation, Dementia, Diabetes Mellitus, Hyperlipidemia, Hypertension, Sleep Apnea/CPAP/BIPAP Additional Past Medical History / Comment(s): wt loss of 183# down to 123# over last year,no appetite,scratches skin frequently causing some sores,has cpap History of Any Multi-Drug Resistant Organisms: None Reported Past Surgical History: No Surgical Hx Reported Additional Past Surgical History / Comment(s): mark cataracts,rt retinal repair Past Anesthesia/Blood Transfusion Reactions: No Reported Reaction Past Psychological History: No Psychological Hx Reported Smoking Status: Never smoker Past Alcohol Use History: None Reported Past Drug Use History: None Reported - Past Family History Mother Family Medical History: Cancer Additional Family Medical History / Comment(s): Mother at age 57 from uterine cancer. Father Family Medical History: Cancer Additional Family Medical History / Comment(s): Father in his 70s from cancer with metastatic disease to the brain. Sister(s) Family Medical History: CVA/TIA, Dementia Additional Family Medical History / Comment(s): Patient has 2 sisters. One sister has dementia and one sister with breast cancer. Patient has 2 brothers with no major medical problems. Patient has 2 daughters and one has diabetes and one son with no major medical problems. Medications and Allergies Home Medications Medication Instructions Recorded Confirmed Type Atorvastatin [Lipitor] 5 mg PO HS@212909/28/15 05/22/19 History Carvedilol [Coreg] 3.125 mg PO DAILY@0800 09/28/15 05/22/19 History Latanoprost [Xalatan 0.005%] 1 drop BOTH EYES HS@209905/02/19 05/22/19 History ALPRAZolam [Xanax] 0.25 mg PO BID PRN 3 Days #6 tab 05/06/19 05/22/19 Rx INSULIN ASPART (NovoLOG) [NovoLOG 6 unit SQ AC-TID vial 05/10/19 05/22/19 Rx (formulary)] Acetaminophen Tab [Tylenol Tab] 650 mg PO Q4H PRN 05/22/19 05/22/19 History Aspirin [Adult Low Dose Aspirin EC] 81 mg PO BID@0800,169905/22/19 05/22/19 History Bisacodyl [Dulcolax] 10 mg RECTAL DAILY PRN 05/22/19 05/22/19 History Cefuroxime Axetil [Ceftin] 500 mg PO BID@0800,209905/22/19 05/22/19 History Ferrous Sulfate [Feosol] 325 mg PO BID@0800,169905/22/19 05/22/19 History Glucerna Shake 237 ml PO TID@0800,1200,1700 05/22/19 05/22/19 History HYDROcodone/APAP 5-325MG [[place] 1 - 2 tab PO Q4-6H PRN 05/22/19 05/22/19 History 5-325] INSULIN ASPART (NovoLOG) [NovoLOG See Protocol SQ ACHS 05/22/19 05/22/19 History (formulary)] Insulin Detemir (Levemir) [Levemir] 23 unit SQ HS@2130 05/22/19 05/22/19 History Lisinopril [Zestril] 10 mg PO BID@0800,1700 05/22/19 05/22/19 History Magnesium Hydroxide [Milk of 7,200 mg PO DAILY PRN 05/22/19 05/22/19 History Magnesia Concentrate] Mirtazapine [Remeron] 15 mg PO HS@2100 05/22/19 05/22/19 History Na Phos,M-B/Na Phos,Di-Ba [Fleet 133 ml RECTAL DAILY PRN 05/22/19 05/22/19 History Adult] Sennosides-Docusate Sodium 1 tab PO BID@0800,1700 05/22/19 05/22/19 History [Senokot-S] Triamcinolone 0.5% Cream [Kenalog 1 applic TOPICAL BID 05/22/19 05/22/19 History 0.5% Cream] Allergies Allergy/AdvReac Type Severity Reaction Status Date / Time No Known Allergies Allergy Verified 05/22/19 20:50 Physical Exam Vitals: Vital Signs Temp Pulse Pulse Resp BP BP Pulse Ox 05/23/19 05:00 98.2 F 99 16 100 05/23/19 00:00 79 16 05/22/19 23:24 98.9 F 79 16 138/83 100 05/22/19 21:00 90 16 125/50 98 05/22/19 20:30 101 H 13 131/47 05/22/19 19:00 94 20 112/68 05/22/19 18:30 86 20 138/40 98 05/22/19 18:00 95 20 118/81 98 05/22/19 17:30 96 20 128/104 98 05/22/19 17:11 95 20 117/69 96 05/22/19 17:09 98 Intake and Output 05/22/19 05/23/19 05/23/19 22:59 06:59 14:59 Intake Total 600 Output Total 454 Balance 146 Intake: Intake, IV Titration 600 Amount Sodium Chloride 0.9% 1, 600 000 ml @ 100 mls/hr IV . Q10H [facility] Rx#:[id number] Output: Urine 450 Stool 4 Other: Voiding Method Diaper # Bowel Movements 2 Weight 72 kg Gen: This is a 74-year-old female. Patient is in bed with aid at bedside. HEENT: Head is atraumatic, normocephalic. Pupils equal, round. Sclerae is anicteric. NECK: Supple. No JVD. No lymphadenopathy. No thyromegaly. LUNGS: Clear to auscultation. No wheezes or rhonchi. No intercostal retractions. HEART: Regular rate and rhythm. No murmur. ABDOMEN: Soft. Bowel sounds are present. No masses. No tenderness. EXTREMITIES: No pedal edema. No calf tenderness. Dorsalis pedis +2 bilaterally. NEUROLOGICAL: Patient is awake, not oriented, not following commands. Cranial nerves 2 through 12 are grossly intact. Results CBC & Chem 7: 05/23/19 02:18 05/23/19 02:18 Labs: Abnormal Lab Results - Last 24 Hours (Table) 05/22/19 05/22/19 05/22/19 Range/Units 17:22 17:40 17:40 WBC 18.4 H (3.8-10.6) k/uL MCHC 30.9 L (31.0-37.0) g/dL Plt Count 562 H (150-450) k/uL Neutrophils # 16.4 H (1.3-7.7) k/uL Lymphocytes # 0.8 L (1.0-4.8) k/uL APTT (22.0-30.0) sec Potassium 5.2 H (3.5-5.1) mmol/L Chloride 113 H (98-107) mmol/L Carbon Dioxide (22-30) mmol/L BUN 73 H (7-17) mg/dL Creatinine 1.95 H (0.52-1.04) mg/dL Glucose 159 H (74-99) mg/dL Plasma Lactic Acid Venkat (0.7-2.0) mmol/L Calcium 10.5 H (8.4-10.2) mg/dL Total Bilirubin 1.5 H (0.2-1.3) mg/dL Alkaline Phosphatase 149 H (38-126) U/L Creatine Kinase <20 L (30-135) U/L Urine Appearance Cloudy H (Clear) Urine Protein 1+ H (Negative) Urine Glucose (UA) 4+ H (Negative) Urine Ketones Trace H (Negative) Urine Blood Moderate H (Negative) Ur Leukocyte Esterase Large H (Negative) Urine RBC 32 H (0-5) /hpf Urine WBC 170 H (0-5) /hpf Urine WBC Clumps Many H (None) /hpf Ur Squamous Epith Cells 16 H (0-4) /hpf Urine Bacteria Many H (None) /hpf Urine Mucus Many H (None) /hpf 05/22/19 05/22/19 05/22/19 Range/Units 17:40 17:40 22:08 WBC (3.8-10.6) k/uL MCHC (31.0-37.0) g/dL Plt Count (150-450) k/uL Neutrophils # (1.3-7.7) k/uL Lymphocytes # (1.0-4.8) k/uL APTT 18.7 L (22.0-30.0) sec Potassium (3.5-5.1) mmol/L Chloride (98-107) mmol/L Carbon Dioxide (22-30) mmol/L BUN (7-17) mg/dL Creatinine (0.52-1.04) mg/dL Glucose (74-99) mg/dL Plasma Lactic Acid Venkat 3.6 H* 2.3 H* (0.7-2.0) mmol/L Calcium (8.4-10.2) mg/dL Total Bilirubin (0.2-1.3) mg/dL Alkaline Phosphatase (38-126) U/L Creatine Kinase (30-135) U/L Urine Appearance (Clear) Urine Protein (Negative) Urine Glucose (UA) (Negative) Urine Ketones (Negative) Urine Blood (Negative) Ur Leukocyte Esterase (Negative) Urine RBC (0-5) /hpf Urine WBC (0-5) /hpf Urine WBC Clumps (None) /hpf Ur Squamous Epith Cells (0-4) /hpf Urine Bacteria (None) /hpf Urine Mucus (None) /hpf 05/23/19 05/23/19 Range/Units 02:18 02:18 WBC 18.1 H (3.8-10.6) k/uL MCHC 30.3 L (31.0-37.0) g/dL Plt Count (150-450) k/uL Neutrophils # 16.3 H (1.3-7.7) k/uL Lymphocytes # 0.7 L (1.0-4.8) k/uL APTT (22.0-30.0) sec Potassium 5.7 H (3.5-5.1) mmol/L Chloride 115 H (98-107) mmol/L Carbon Dioxide 19 L (22-30) mmol/L BUN 72 H (7-17) mg/dL Creatinine 1.49 H (0.52-1.04) mg/dL Glucose 379 H (74-99) mg/dL Plasma Lactic Acid Venkat (0.7-2.0) mmol/L Calcium (8.4-10.2) mg/dL Total Bilirubin (0.2-1.3) mg/dL Alkaline Phosphatase (38-126) U/L Creatine Kinase (30-135) U/L Urine Appearance (Clear) Urine Protein (Negative) Urine Glucose (UA) (Negative) Urine Ketones (Negative) Urine Blood (Negative) Ur Leukocyte Esterase (Negative) Urine RBC (0-5) /hpf Urine WBC (0-5) /hpf Urine WBC Clumps (None) /hpf Ur Squamous Epith Cells (0-4) /hpf Urine Bacteria (None) /hpf Urine Mucus (None) /hpf Microbiology - Last 24 Hours (Table) 05/22/19 17:22 Urine Culture - Preliminary Urine,Voided Thrombosis Risk Factor Assmnt - DVT/VTE Prophylaxis DVT/VTE Prophylaxis: Pharmacologic Prophylaxis ordered - Choose All That Apply Any of the Below Risk Factors Present?: Yes Each Factor Represents 1 point: Medical pt on bed rest Other Risk Factors: Yes Each Risk Factor Represents 2 Points: Age 61-74 years Other congenital or acquired thrombophilia - If yes, enter type in comment: No Thrombosis Risk Factor Assessment Total Risk Factor Score: 3 Thrombosis Risk Factor Assessment Level: Moderate Risk Assessment and Plan Plan: 1. Acute kidney injury secondary to GI loss from diarrhea, poor oral intake. Continue IV fluids 100 mL/h, recheck electrolytes and renal function in the morning. Hold lisinopril. 2. Lactic acidosis secondary to sepsis and acute kidney injury, resolved. 3. Sepsis secondary to acute urinary tract infection. Continue Rocephin 1 g daily. Urine culture and blood culture in progress. 4. Diarrhea following stool softeners and constipation. C. difficile toxin negative. Discontinue Dulcolax suppository, Senokot S, Fleet enema. 5. Electrolyte abnormality secondary to dehydration with hyperkalemia, hyperchloremia. 6. History of Intertrochanteric fracture right hip status post IT nail on May 03, currently undergoing subacute rehab. 7. Hyperlipidemia. Continue Lipitor. 8. Hypertension. Continue Coreg 3.125 mg daily, hold lisinopril 10 mg twice daily. 9. History of paroxysmal atrial fibrillation, in normal sinus. Continue Coreg. 10. Advanced dementia. Off Aricept. Start Risperdal 0.25 mg twice daily. 11. DVT prophylaxis. Heparin subcu 12. GI prophylaxis. Pepcid. 13. Osteoporosis. Hold Evista. 14. Diabetes mellitus type 2. Continue Levemir increased to 23 units at bedtime, scheduled NovoLog 6 units before meals and NovoLog scale. CODE STATUS: No code Patient admitted to the hospital for a minimum of 2 night stay. Patient meets criteria for palliative care. Discharge plan: [place] return, may require insurance authorization prior to discharge. PT and OT consults. Impression and plan of care have been directed as dictated by the signing physician. Pati Tillman nurse practitioner acting as scribe for signing physician.
[2019-05-23] MEDS ORDERED: TAMSULOSIN 0.4 MG CAP.ER.24H PO STA (12:39)
[2019-05-23] MEDS: HYDROcodone/APAP 5-325MG 1 EACH TAB PO PRN ×2 (13:19→19:59)
[2019-05-23 14:54] VITALS: BMI 23.4
[2019-05-23 17:10] LABS: Glucose,Whole Blood 231 mg/dL (75-99)
[2019-05-23 20:22] LABS: Glucose,Whole Blood 121 mg/dL (75-99)
[2019-05-23] MEDS ORDERED: LATANOPROST 0.005% OPHTH DROPS 2.5 ML BTL BOTH EYES SCH (21:00)
[2019-05-23] MEDS ORDERED: MIRTAZAPINE 15 MG TAB PO SCH (21:00)
[2019-05-23] MEDS ORDERED: INSULIN DETEMIR (LEVEMIR) 100 UNIT/ML SYR SQ SCH (21:30)
[2019-05-23] MEDS ORDERED: ATORVASTATIN 10 MG TAB PO SCH (21:30)
[2019-05-23] MEDS: HEPARIN SODIUM,PORCINE 5,000 UNIT/ML 1 ML VIAL SQ SCH (21:32)
[2019-05-24] MEDS: SODIUM CHLORIDE 0.9% 1,000 ML IV SCH (04:05)
[2019-05-24 07:11] LABS: Glucose,Whole Blood 36 mg/dL (75-99)
[2019-05-24] MEDS: INSULIN ASPART (NovoLOG) 100 UNIT/ML VIAL SQ SCH ×4 (07:12→16:22)
[2019-05-24] MEDS ORDERED: DEXTROSE 10 % IN WATER 250 ML IV STA (07:18)
[2019-05-24 07:41] LABS: HCT 36.6 % (34.0-46.0); Hypochromasia Marked; MCH 29.6 pg (25.0-35.0); MCHC 30.2 g/dL (31.0-37.0); MCV 98.1 fL (80.0-100.0); Mean Platelet Volume 8.3; Platelet Count 331 k/uL (150-450); RBC 3.73 m/uL (3.80-5.40); RDW 14.2 % (11.5-15.5)
[2019-05-24 07:44] LABS: Glucose,Whole Blood 118 mg/dL (75-99)
[2019-05-24 07:47] LABS: Albumin 2.8 g/dL (3.5-5.0); Potassium 4.1 mmol/L (3.5-5.1); Total Bilirubin 0.8 mg/dL (0.2-1.3)
[2019-05-24] MEDS ORDERED: TAMSULOSIN 0.4 MG CAP.ER.24H PO SCH (08:30)
[2019-05-24] MEDS ORDERED: HYDROcodone/APAP 5-325MG 1 EACH TAB PO PRN (08:40)
[2019-05-24] MEDS: ALPRAZolam 0.25 MG TAB PO PRN (08:55)
[2019-05-24] MEDS: CARVEDILOL 3.125 MG TAB PO SCH (08:55)
[2019-05-24] MEDS: HEPARIN SODIUM,PORCINE 5,000 UNIT/ML 1 ML VIAL SQ SCH (08:55)
[2019-05-24] MEDS: FERROUS SULFATE 325 MG TAB PO SCH ×2 (08:55→16:54)
[2019-05-24] MEDS: risperiDONE 0.25 MG TAB PO SCH (08:55)
[2019-05-24] MEDS: TRIAMCINOLONE ACET 0.5% CREAM 15 GM TUBE TOPICAL SCH (08:56)
[2019-05-24] MEDS ORDERED: FAMOTIDINE 20 MG TAB PO SCH (09:00)
[2019-05-24] MEDS ORDERED: DEXTROSE 5%-0.45% NACL 1,000 ML IV SCH (09:00)
[2019-05-24] MEDS: NYSTATIN 100,000 UNIT/GM POWD 15 GM TOPICAL SCH (10:43)
[2019-05-24 11:12] LABS: Glucose,Whole Blood 98 mg/dL (75-99)
[2019-05-24 11:44] VITALS: BP 103/58; PULSE 75; RESP 19; TEMP 98.6
--- NOTE | 2019-05-24 13:37 | P.PN ---
Subjective Progress Note Date: 05/24/19 This is a 74-year-old female patient of Dr. Verdin with past medical history of paroxysmal atrial fibrillation, advanced dementia, diabetes mellitus type 2, hypertension, hyperlipidemia, obstructive sleep apnea. Patient has had 2 recent hospitalization one due to dehydration secondary to diarrhea and possible urinary tract infection with metabolic encephalopathy. Patient return to the hospital due to a fall found to have an intertrochanteric fracture of the right hip status post IT nail and patient was discharge to [facility] for subacute rehab on May 10. Patient was transferred to [facility] emergency center due to low blood pressure of 60 systolic. Patient fairly has had profuse diarrhea and there is concern for GI bleed. Patient previously had issues with constipation and is on stool softeners followed by bowel movements and then profuse watery diarrhea. Patient's had no fever or chills. Patient found to be afebrile, vital signs stable, initial blood pressure 117/69 and heart rate of 95, pulse ox 96%. EKG was in normal sinus rhythm with no acute ST-T wave changes. WBC 18.4, hemoglobin 12.8, platelet count 562. Potassium 5.2, chloride 113, BUN 73 and creatinine 1.95, blood sugar 159. Influenza testing negative, C. difficile toxin negative, stool for occult blood negative. Urinalysis showed moderate blood, leukoesterase large, 3 BC 170, WBC clumps many, bacteria many. Total bilirubin 1.5, alkaline phosphatase 149. Initial lactic acid 3.6 and currently at 1.8. Patient has a sitter at the bedside as she is clear hands into her depends and trying to eat her feces. Family is looking at returning to [facility] is long-term care. 05/24: Blood sugar this morning was at 35 and scheduled Levemir, scheduled NovoLog were discontinued. Patient is currently on NovoLog scale only. Patient is eating very little less than 25% of her meals. Patient continues to be significantly confused. The patient has black stools but diarrhea has improved. Patient is on ferrous sulfate chronically. She has excoriation in the perineal area. Urine culture showing gram-negative bacilli. Blood culture no growth at 24 hours. Repeat lab work reveals WBC 15.0, hemoglobin 11.0. Sodium 154, potassium 4.1, chloride 126, CO2 23, BUN 57 creatinine 0.89. IV fluids changed to D5 and half-normal saline. PT to work with the patient today as we will need insurance authorization for patient to return to subacute rehab at [facility]. Review of Systems ROS unobtainable: due to mental status Objective - Vital Signs Vital signs: Vital Signs Temp 98.2 F 05/23/19 05:00 Pulse 71 05/24/19 05:00 Resp 18 05/24/19 05:00 BP 95/64 05/24/19 05:00 Pulse Ox 98 05/24/19 05:00 Intake & Output 05/23/19 05/24/19 05/24/19 18:59 06:59 18:59 Intake Total 800 1000 Output Total 2253 4 Balance -1453 996 Weight 72 kg Intake: Intake, IV Titration 800 1000 Amount Sodium Chloride 0.9% 1, 800 1000 000 ml @ 100 mls/hr IV . Q10H [id number] Rx#:[id number] Output: Urine 1830 Straight 915 Post Void Residual 415 Stool 8 4 Other: Voiding Method Self-Catheterization Self-Catheterization # Voids 1 # Bowel Movements 2 1 - Exam Gen: This is a 74-year-old female. Patient is in bed with aid at bedside. HEENT: Head is atraumatic, normocephalic. Pupils equal, round. Sclerae is anicteric. NECK: Supple. No JVD. No lymphadenopathy. No thyromegaly. LUNGS: Clear to auscultation. No wheezes or rhonchi. No intercostal retractions. HEART: Regular rate and rhythm. No murmur. ABDOMEN: Soft. Bowel sounds are present. No masses. No tenderness. EXTREMITIES: No pedal edema. No calf tenderness. Dorsalis pedis +2 bilaterally. NEUROLOGICAL: Patient is awake, not oriented, not following commands. Generalized weakness. - Labs CBC & Chem 7: 05/24/19 07:16 05/24/19 07:16 Labs: Abnormal Lab Results - Last 24 Hours (Table) 05/23/19 05/23/19 05/23/19 Range/Units 11:08 17:08 20:21 WBC (3.8-10.6) k/uL RBC (3.80-5.40) m/uL Hgb (11.4-16.0) gm/dL MCHC (31.0-37.0) g/dL Sodium (137-145) mmol/L Chloride (98-107) mmol/L BUN (7-17) mg/dL Glucose (74-99) mg/dL POC Glucose (mg/dL) 343 H 231 H 121 H (75-99) mg/dL Total Protein (6.3-8.2) g/dL Albumin (3.5-5.0) g/dL 05/24/19 05/24/19 05/24/19 Range/Units 07:09 07:16 07:16 WBC 15.0 H (3.8-10.6) k/uL RBC 3.73 L (3.80-5.40) m/uL Hgb 11.0 L (11.4-16.0) gm/dL MCHC 30.2 L (31.0-37.0) g/dL Sodium 154 H (137-145) mmol/L Chloride 126 H (98-107) mmol/L BUN 57 H (7-17) mg/dL Glucose 35 L* (74-99) mg/dL POC Glucose (mg/dL) 36 L (75-99) mg/dL Total Protein 6.0 L (6.3-8.2) g/dL Albumin 2.8 L (3.5-5.0) g/dL 05/24/19 Range/Units 07:43 WBC (3.8-10.6) k/uL RBC (3.80-5.40) m/uL Hgb (11.4-16.0) gm/dL MCHC (31.0-37.0) g/dL Sodium (137-145) mmol/L Chloride (98-107) mmol/L BUN (7-17) mg/dL Glucose (74-99) mg/dL POC Glucose (mg/dL) 118 H (75-99) mg/dL Total Protein (6.3-8.2) g/dL Albumin (3.5-5.0) g/dL Microbiology - Last 24 Hours (Table) 05/22/19 17:40 Blood Culture - Preliminary Blood No Growth after 24 hours 05/22/19 17:22 Urine Culture - Preliminary Urine,Voided Gram Neg Bacilli Assessment and Plan Plan: 1. Acute kidney injury secondary to GI loss from diarrhea, poor oral intake. Continue IV fluids changed to D5 and half normal saline, recheck electrolytes and renal function in the morning. Hold lisinopril. 2. Lactic acidosis secondary to sepsis and acute kidney injury, resolved. 3. Sepsis secondary to acute urinary tract infection. Continue Rocephin 1 g daily. Urine culture and blood culture in progress. 4. Diarrhea following stool softeners and constipation. C. difficile toxin negative. Discontinue Dulcolax suppository, Senokot S, Fleet enema. 5. Electrolyte abnormality secondary to dehydration with hyperkalemia, hyperchloremia. 6. History of Intertrochanteric fracture right hip status post IT nail on May 03, currently undergoing subacute rehab. 7. Hyperlipidemia. Continue Lipitor. 8. Hypertension. Continue Coreg 3.125 mg daily, hold lisinopril 10 mg twice daily. 9. History of paroxysmal atrial fibrillation, in normal sinus. Continue Coreg. 10. Advanced dementia. Off Aricept. Start Risperdal 0.25 mg twice daily. 11. DVT prophylaxis. Heparin subcu 12. GI prophylaxis. Pepcid. 13. Osteoporosis. Hold Evista. 14. Diabetes mellitus type 2. Continue Levemir increased to 23 units at bedtime, scheduled NovoLog 6 units before meals and NovoLog scale. 15. Hypernatremia, hyperchloremia. IV fluids changed to D5 half normal saline. CODE STATUS: No code Patient meets criteria for palliative care. Discharge plan: return Monday pending insurance authorization and patient condition. PT and OT consults. Impression and plan of care have been directed as dictated by the signing physician. Pati Tillman nurse practitioner acting as scribe for signing physician.
[2019-05-24] MEDS ORDERED: LORazepam 2 MG/ML INJ IV PRN (15:16)
[2019-05-24 17:00] LABS: Glucose,Whole Blood 58 mg/dL (75-99)
[2019-05-24] MEDS ORDERED: DEXTROSE 10 % IN WATER 250 ML IV ONE (17:01)
--- NOTE | 2019-05-26 09:05 | P.DS ---
Providers Date of admission: 05/22/19 20:20 Attending physician: Paul Stern Primary care physician: Staci Verdin [facility] Course: This is a 74-year-old female patient of Dr. Verdin with past medical history of paroxysmal atrial fibrillation, advanced dementia, diabetes mellitus type 2, hypertension, hyperlipidemia, obstructive sleep apnea. Patient has had 2 recent hospitalization one due to dehydration secondary to diarrhea and possible urinary tract infection with metabolic encephalopathy. Patient return to the hospital due to a fall found to have an intertrochanteric fracture of the right hip status post IT nail and patient was discharge to [facility] for subacute rehab on May 10. Patient was transferred to [facility] emergency center due to low blood pressure of 60 systolic. Patient fairly has had profuse diarrhea and there is concern for GI bleed. Patient previously had issues with constipation and is on stool softeners followed by bowel movements and then profuse watery diarrhea. Patient's had no fever or chills. Patient found to be afebrile, vital signs stable, initial blood pressure 117/69 and heart rate of 95, pulse ox 96%. EKG was in normal sinus rhythm with no acute ST-T wave changes. WBC 18.4, hemoglobin 12.8, platelet count 562. Potassium 5.2, chloride 113, BUN 73 and creatinine 1.95, blood sugar 159. Influenza testing negative, C. difficile toxin negative, stool for occult blood negative. Urinalysis showed moderate blood, leukoesterase large, 3 BC 170, WBC clumps many, bacteria many. Total bilirubin 1.5, alkaline phosphatase 149. Initial lactic acid 3.6 and currently at 1.8. Patient has a sitter at the bedside as she is clear hands into her depends and trying to eat her feces. Family is looking at returning to [facility] is long-term care. 05/24: Blood sugar this morning was at 35 and scheduled Levemir, scheduled NovoLog were discontinued. Patient is currently on NovoLog scale only. Patient is eating very little less than 25% of her meals. Patient continues to be significantly confused. The patient has black stools but diarrhea has improved. Patient is on ferrous sulfate chronically. She has excoriation in the perineal area. Urine culture showing gram-negative bacilli. Blood culture no growth at 24 hours. Repeat lab work reveals WBC 15.0, hemoglobin 11.0. Sodium 154, potassium 4.1, chloride 126, CO2 23, BUN 57 creatinine 0.89. IV fluids changed to D5 and half-normal saline. PT to work with the patient today as we will need insurance authorization for patient to return to subacute rehab at [facility]. 05/25:Admit to hospice. Will review with patient we will be able to return to rehab at [facility]. With hospice. Discharge diagnosis: 1. Acute kidney injury secondary to GI loss from diarrhea, poor oral intake. 2. Lactic acidosis secondary to sepsis and acute kidney injury, 3. Sepsis secondary to acute urinary tract infection. 4. Diarrhea following stool softeners and constipation. 5. Electrolyte abnormality secondary to dehydration with hyperkalemia, hyperchloremia. 6. History of Intertrochanteric fracture right hip status post IT nail on May 03, 7. Hyperlipidemia. 8. Hypertension. 9. History of paroxysmal atrial fibrillation, in normal sinus. 10. Advanced dementia. 11. Osteoporosis. 12. Diabetes mellitus type 2. 13. Hypernatremia, hyperchloremia. Discharge plan: Hospice Impression and plan of care have been directed as dictated by the signing physician. Kate Corea nurse practitioner acting as scribe for signing physician. Patient Condition at Discharge: Stable Plan - Discharge Summary Discharge Rx Participant: Yes New Discharge Prescriptions: No Action Atorvastatin [Lipitor] 5 mg PO HS@2130 Carvedilol [Coreg] 3.125 mg PO DAILY@0800 Latanoprost [Xalatan 0.005%] 1 drop BOTH EYES HS@2100 ALPRAZolam [Xanax] 0.25 mg PO BID PRN 3 Days #6 tab PRN Reason: Anxiety INSULIN ASPART (NovoLOG) [NovoLOG (formulary)] 6 unit SQ AC-TID vial HYDROcodone/APAP 5-325MG [[place] 5-325] 1 - 2 tab PO Q4-6H PRN PRN Reason: Pain Na Phos,M-B/Na Phos,Di-Ba [Fleet Adult] 133 ml RECTAL DAILY PRN PRN Reason: Constipation Bisacodyl [Dulcolax] 10 mg RECTAL DAILY PRN PRN Reason: Constipation INSULIN ASPART (NovoLOG) [NovoLOG (formulary)] See Protocol SQ ACHS Acetaminophen Tab [Tylenol Tab] 650 mg PO Q4H PRN PRN Reason: Pain Glucerna Shake 237 ml PO TID@0800,1200,1700 Triamcinolone 0.5% Cream [Kenalog 0.5% Cream] 1 applic TOPICAL BID Sennosides-Docusate Sodium [Senokot-S] 1 tab PO BID@0800,1700 Lisinopril [Zestril] 10 mg PO BID@0800,1700 Ferrous Sulfate [Feosol] 325 mg PO BID@0800,1700 Cefuroxime Axetil [Ceftin] 500 mg PO BID@0800,2100 Mirtazapine [Remeron] 15 mg PO HS@2100 Aspirin [Adult Low Dose Aspirin EC] 81 mg PO BID@0800,1700 Magnesium Hydroxide [Milk of Magnesia Concentrate] 7,200 mg PO DAILY PRN PRN Reason: Constipation Insulin Detemir (Levemir) [Levemir] 23 unit SQ HS@2129 Discharge Medication List Atorvastatin [Lipitor] 5 mg PO HS@212909/28/15 [History] Carvedilol [Coreg] 3.125 mg PO DAILY@0800 09/28/15 [History] Latanoprost [Xalatan 0.005%] 1 drop BOTH EYES HS@209905/02/19 [History] ALPRAZolam [Xanax] 0.25 mg PO BID PRN 3 Days #6 tab 05/06/19 [Rx] INSULIN ASPART (NovoLOG) [NovoLOG (formulary)] 6 unit SQ AC-TID vial 05/10/19 [Rx] Acetaminophen Tab [Tylenol Tab] 650 mg PO Q4H PRN 05/22/19 [History] Aspirin [Adult Low Dose Aspirin EC] 81 mg PO BID@0800,1700 05/22/19 [History] Bisacodyl [Dulcolax] 10 mg RECTAL DAILY PRN 05/22/19 [History] Cefuroxime Axetil [Ceftin] 500 mg PO BID@0800,2100 05/22/19 [History] Ferrous Sulfate [Feosol] 325 mg PO BID@0800,1700 05/22/19 [History] Glucerna Shake 237 ml PO TID@0800,1200,1700 05/22/19 [History] HYDROcodone/APAP 5-325MG [[place] 5-325] 1 - 2 tab PO Q4-6H PRN 05/22/19 [History] INSULIN ASPART (NovoLOG) [NovoLOG (formulary)] See Protocol SQ ACHS 05/22/19 [History] Insulin Detemir (Levemir) [Levemir] 23 unit SQ HS@2130 05/22/19 [History] Lisinopril [Zestril] 10 mg PO BID@0800,1700 05/22/19 [History] Magnesium Hydroxide [Milk of Magnesia Concentrate] 7,200 mg PO DAILY PRN 05/22/19 [History] Mirtazapine [Remeron] 15 mg PO HS@2100 05/22/19 [History] Na Phos,M-B/Na Phos,Di-Ba [Fleet Adult] 133 ml RECTAL DAILY PRN 05/22/19 [History] Sennosides-Docusate Sodium [Senokot-S] 1 tab PO BID@0800,1700 05/22/19 [History] Triamcinolone 0.5% Cream [Kenalog 0.5% Cream] 1 applic TOPICAL BID 05/22/19 [History] Follow up Appointment(s)/Referral(s): Staci Verdin MD [Primary Care Provider] - 1-2 days
== END 2019-05-24 18:19 | DRG 872 ==
LOC: EC 17:00 → 5NMEDONC 20:20
PROVIDERS: ADMIT Internal Medicine Geriatric Medicine; ATTEND Internal Medicine Geriatric Medicine
DX: A41.9 Sepsis, unspecified organism (principal); E87.0 Hyperosmolality and hypernatremia; E87.2 Acidosis; N17.9 Acute kidney failure, unspecified; N39.0 Urinary tract infection, site not specified; E11.9 Type 2 diabetes mellitus without complications; E78.5 Hyperlipidemia, unspecified; E86.0 Dehydration; E87.5 Hyperkalemia; E87.8 Other disorders of electrolyte and fluid balance, not elsewhere classified; F03.90 Unspecified dementia, unspecified severity, without behavioral disturbance, psychotic disturbance, mood disturbance, and anxiety; I10 Essential (primary) hypertension; I48.0 Paroxysmal atrial fibrillation; K56.41 Fecal impaction; M81.0 Age-related osteoporosis without current pathological fracture; Z51.5 Encounter for palliative care; Z66 Do not resuscitate; Z79.4 Long term (current) use of insulin; Z79.82 Long term (current) use of aspirin; Z79.899 Other long term (current) drug therapy; Z80.3 Family history of malignant neoplasm of breast; Z80.49 Family history of malignant neoplasm of other genital organs; W19.XXXD Unspecified fall, subsequent encounter; Z82.3 Family history of stroke; Z83.3 Family history of diabetes mellitus; Z80.9 Family history of malignant neoplasm, unspecified; Z82.0 Family history of epilepsy and other diseases of the nervous system; S72.141D Displaced intertrochanteric fracture of right femur, subsequent encounter for closed fracture with routine healing; Z96.641 Presence of right artificial hip joint
CPT/HCPCS: 36415; 71046; 74176; 80048; 80053; 81001; 82272; 82550; 83605; 85025; 85027; 85610; 85730; 86850; 86900; 86901; 87040; 87077; 87086; 87186; 87324; 87502; 93005; 96360; 96361; 96374; 99285

== ENCOUNTER 2019-05-24 18:27 | Inpatient (IN) | payer MEDICAID ==
[2019-05-24] MEDS ORDERED: ACETAMINOPHEN SUPPOSITORY 650 MG SUPP RECTAL PRN (18:42)
[2019-05-24] MEDS ORDERED: LORazepam 0.5 MG TAB PO PRN (18:42)
[2019-05-24] MEDS ORDERED: ONDANSETRON 4 MG/2 ML VIAL IVP PRN (18:42)
[2019-05-24] MEDS ORDERED: ATROPINE OPHTH SOLN 1% 5ML BTL SUBLINGUAL PRN (18:42)
[2019-05-24] MEDS ORDERED: BISACODYL 10 MG SUPP RECTAL PRN (18:46)
[2019-05-24] MEDS: SCOPOLAMINE 1.5MG/72HR PATCH TRANSDERM SCH (20:53)
[2019-05-24] MEDS: DEXTROSE 5%-0.45% NACL 1,000 ML IV SCH (20:56)
[2019-05-24] MEDS: MORPHINE SULFATE 2 MG/ML SYRINGE IVP PRN (21:55)
[2019-05-25] MEDS: DEXTROSE 5%-0.45% NACL 1,000 ML IV SCH ×2 (05:53→17:32)
[2019-05-25 07:15] LABS: Glucose,Whole Blood 267 mg/dL (75-99)
[2019-05-25] MEDS: MORPHINE SULFATE 2 MG/ML SYRINGE IVP PRN ×2 (10:05→14:18)
--- NOTE | 2019-05-25 12:06 | P.PN ---
Subjective Progress Note Date: 05/25/19 This is a 74-year-old female patient of Dr. Verdin with past medical history of paroxysmal atrial fibrillation, advanced dementia, diabetes mellitus type 2, hypertension, hyperlipidemia, obstructive sleep apnea. Patient has had 2 recent hospitalization one due to dehydration secondary to diarrhea and possible urinary tract infection with metabolic encephalopathy. Patient return to the hospital due to a fall found to have an intertrochanteric fracture of the right hip status post IT nail and patient was discharge to [facility] for subacute rehab on May 10. Patient was transferred to [facility] emergency center due to low blood pressure of 60 systolic. Patient fairly has had profuse diarrhea and there is concern for GI bleed. Patient previously had issues with constipation and is on stool softeners followed by bowel movements and then profuse watery diarrhea. Patient's had no fever or chills. Patient found to be afebrile, vital signs stable, initial blood pressure 117/69 and heart rate of 95, pulse ox 96%. EKG was in normal sinus rhythm with no acute ST-T wave changes. WBC 18.4, hemoglobin 12.8, platelet count 562. Potassium 5.2, chloride 113, BUN 73 and creatinine 1.95, blood sugar 159. Influenza testing negative, C. difficile toxin negative, stool for occult blood negative. Urinalysis showed moderate blood, leukoesterase large, 3 BC 170, WBC clumps many, bacteria many. Total bilirubin 1.5, alkaline phosphatase 149. Initial lactic acid 3.6 and currently at 1.8. Patient has a sitter at the bedside as she is clear hands into her depends and trying to eat her feces. Family is looking at returning to [facility] is long-term care. 05/24: Blood sugar this morning was at 35 and scheduled Levemir, scheduled NovoLog were discontinued. Patient is currently on NovoLog scale only. Patient is eating very little less than 25% of her meals. Patient continues to be significantly confused. The patient has black stools but diarrhea has improved. Patient is on ferrous sulfate chronically. She has excoriation in the perineal area. Urine culture showing gram-negative bacilli. Blood culture no growth at 24 hours. Repeat lab work reveals WBC 15.0, hemoglobin 11.0. Sodium 154, potassium 4.1, chloride 126, CO2 23, BUN 57 creatinine 0.89. IV fluids changed to D5 and half-normal saline. PT to work with the patient today as we will need insurance authorization for patient to return to subacute rehab at [facility]. 05/25: Family is planning on speaking with hospice today for possible transition transition to hospice care due to patient's inability to eat and drink. Patient meets criteria for palliative care at this time. Patient continues to be significantly confused. Unable to answer questions appropriately. Unable to follow commands. Diarrhea continues to improve. Patient remained afebrile. Blood pressure 103/58, heart rate 75, respirations 16 and nonlabored, O2 saturation 100% on 2 L of nasal cannula. Review of systems: Unable to obtain due to mental status Objective - Vital Signs Vital signs: Intake & Output 05/24/19 05/25/19 05/25/19 18:59 06:59 18:59 Intake Total 1150 Balance 1150 Weight 72 kg Intake: Intake, IV Titration 1150 Amount Dextrose 5%-0.45% NaCl 1, 1150 000 ml @ 100 mls/hr IV . Q10H [facility] Rx#:[id number] Other: Voiding Method Diaper Diaper Incontinent Incontinent # Voids 1 # Bowel Movements 2 - Exam Gen: This is a 74-year-old female. Patient is in bed with aid at bedside. HEENT: Head is atraumatic, normocephalic. Pupils equal, round. Sclerae is anicteric. NECK: Supple. No JVD. No lymphadenopathy. No thyromegaly. LUNGS: Clear to auscultation. No wheezes or rhonchi. No intercostal retractions. HEART: Regular rate and rhythm. No murmur. ABDOMEN: Soft. Bowel sounds are present. No masses. No tenderness. EXTREMITIES: No pedal edema. No calf tenderness. Dorsalis pedis +2 bilaterally. NEUROLOGICAL: Patient is awake, not oriented, not following commands. Generalized weakness. - Labs Labs: Abnormal Lab Results - Last 24 Hours (Table) 05/25/19 Range/Units 07:13 POC Glucose (mg/dL) 267 H (75-99) mg/dL Assessment and Plan Plan: 1. Acute kidney injury secondary to GI loss from diarrhea, poor oral intake. Continue IV fluids changed to D5 and half normal saline, recheck electrolytes and renal function in the morning. Hold lisinopril. 2. Lactic acidosis secondary to sepsis and acute kidney injury, resolved. 3. Sepsis secondary to acute urinary tract infection. Continue Rocephin 1 g daily. Blood cultures negative. Urine culture shows E. coli. Susceptibility reviewed. 4. Diarrhea following stool softeners and constipation. C. difficile toxin negative. Discontinue Dulcolax suppository, Senokot S, Fleet enema. 5. Electrolyte abnormality secondary to dehydration with hyperkalemia, hyperchloremia. 6. History of Intertrochanteric fracture right hip status post IT nail on May 03, currently undergoing subacute rehab. 7. Hyperlipidemia. Continue Lipitor. 8. Hypertension. Continue Coreg 3.125 mg daily, hold lisinopril 10 mg twice daily. 9. History of paroxysmal atrial fibrillation, in normal sinus. Continue Coreg. 10. Advanced dementia. Off Aricept. Start Risperdal 0.25 mg twice daily. 11. DVT prophylaxis. Heparin subcu 12. GI prophylaxis. Pepcid. 13. Osteoporosis. Hold Evista. 14. Diabetes mellitus type 2. Continue Levemir increased to 23 units at bedtime, scheduled NovoLog 6 units before meals and NovoLog scale. 15. Hypernatremia, hyperchloremia. IV fluids changed to D5 half normal saline. CODE STATUS: No code Patient meets criteria for palliative care. Discharge plan: return Monday pending insurance authorization and patient condition. PT and OT consults. Impression and plan of care have been directed as dictated by the signing physician. Kate Corea nurse practitioner acting as scribe for signing physician.
[2019-05-25] MEDS: LORazepam 2 MG/ML INJ IV PRN (17:30)
[2019-05-26] MEDS: LORazepam 2 MG/ML INJ IV PRN ×4 (00:11→23:24)
[2019-05-26] MEDS: DEXTROSE 5%-0.45% NACL 1,000 ML IV SCH ×3 (03:35→23:27)
--- NOTE | 2019-05-26 10:37 | P.PN ---
Subjective Progress Note Date: 05/26/19 This is a 74-year-old female patient of Dr. Verdin with past medical history of paroxysmal atrial fibrillation, advanced dementia, diabetes mellitus type 2, hypertension, hyperlipidemia, obstructive sleep apnea. Patient has had 2 recent hospitalization one due to dehydration secondary to diarrhea and possible urinary tract infection with metabolic encephalopathy. Patient return to the hospital due to a fall found to have an intertrochanteric fracture of the right hip status post IT nail and patient was discharge to [facility] for subacute rehab on May 10. Patient was transferred to [facility] emergency center due to low blood pressure of 60 systolic. Patient fairly has had profuse diarrhea and there is concern for GI bleed. Patient previously had issues with constipation and is on stool softeners followed by bowel movements and then profuse watery diarrhea. Patient's had no fever or chills. Patient found to be afebrile, vital signs stable, initial blood pressure 117/69 and heart rate of 95, pulse ox 96%. EKG was in normal sinus rhythm with no acute ST-T wave changes. WBC 18.4, hemoglobin 12.8, platelet count 562. Potassium 5.2, chloride 113, BUN 73 and creatinine 1.95, blood sugar 159. Influenza testing negative, C. difficile toxin negative, stool for occult blood negative. Urinalysis showed moderate blood, leukoesterase large, 3 BC 170, WBC clumps many, bacteria many. Total bilirubin 1.5, alkaline phosphatase 149. Initial lactic acid 3.6 and currently at 1.8. Patient has a sitter at the bedside as she is clear hands into her depends and trying to eat her feces. Family is looking at returning to [facility] is long-term care. 05/24: Blood sugar this morning was at 35 and scheduled Levemir, scheduled NovoLog were discontinued. Patient is currently on NovoLog scale only. Patient is eating very little less than 25% of her meals. Patient continues to be significantly confused. The patient has black stools but diarrhea has improved. Patient is on ferrous sulfate chronically. She has excoriation in the perineal area. Urine culture showing gram-negative bacilli. Blood culture no growth at 24 hours. Repeat lab work reveals WBC 15.0, hemoglobin 11.0. Sodium 154, potassium 4.1, chloride 126, CO2 23, BUN 57 creatinine 0.89. IV fluids changed to D5 and half-normal saline. PT to work with the patient today as we will need insurance authorization for patient to return to subacute rehab at [facility]. 05/25: Family is planning on speaking with hospice today for possible transition transition to hospice care due to patient's inability to eat and drink. Patient meets criteria for palliative care at this time. Patient continues to be significantly confused. Unable to answer questions appropriately. Unable to follow commands. Diarrhea continues to improve. Patient remained afebrile. Blood pressure 103/58, heart rate 75, respirations 16 and nonlabored, O2 saturation 100% on 2 L of nasal cannula. 05/26: Patient has transition to hospice. She is lying in bed resting comfortably. Family is at the bedside. Unable to answer questions appropriately or follow commands. Diarrhea has continued to improve. Patient remained afebrile. Review of systems: Unable to obtain due to mental status Objective - Vital Signs Vital signs: Intake & Output 05/25/19 05/26/19 05/26/19 18:59 06:59 18:59 Intake Total 850 575 Balance 850 575 Intake: Intake, IV Titration 850 575 Amount Dextrose 5%-0.45% NaCl 1, 800 575 000 ml @ 100 mls/hr IV . Q10H [id number] Rx#:[id number] cefTRIAXone 1 gm In 50 Sodium Chloride 0.9% 50 ml @ 100 mls/hr IVPB Q24HR [facility] Rx#:[id number] Other: Voiding Method Diaper Diaper Diaper Incontinent Incontinent Incontinent # Voids 2 - Exam Gen: This is a 74-year-old female. Patient is in bed with aid at bedside. HEENT: Head is atraumatic, normocephalic. Pupils equal, round. Sclerae is anicteric. NECK: Supple. No JVD. No lymphadenopathy. No thyromegaly. LUNGS: Clear to auscultation. No wheezes or rhonchi. No intercostal retractions. HEART: Regular rate and rhythm. No murmur. ABDOMEN: Soft. Bowel sounds are present. No masses. No tenderness. EXTREMITIES: No pedal edema. No calf tenderness. Dorsalis pedis +2 bilaterally. NEUROLOGICAL: Patient is asleep, not oriented, not following commands. Gene ralized weakness. Assessment and Plan Plan: 1. Acute kidney injury secondary to GI loss from diarrhea, poor oral intake. Continue IV fluids changed to D5 and half normal saline, recheck electrolytes and renal function in the morning. Hold lisinopril. 2. Lactic acidosis secondary to sepsis and acute kidney injury, resolved. 3. Sepsis secondary to acute urinary tract infection. Continue Rocephin 1 g daily. Blood cultures negative. Urine culture shows E. coli. Susceptibility reviewed. 4. Diarrhea following stool softeners and constipation. C. difficile toxin negative. Discontinue Dulcolax suppository, Senokot S, Fleet enema. 5. Electrolyte abnormality secondary to dehydration with hyperkalemia, hyperchloremia. 6. History of Intertrochanteric fracture right hip status post IT nail on May 03, currently undergoing subacute rehab. 7. Hyperlipidemia. Continue Lipitor. 8. Hypertension. Continue Coreg 3.125 mg daily, hold lisinopril 10 mg twice daily. 9. History of paroxysmal atrial fibrillation, in normal sinus. Continue Coreg. 10. Advanced dementia. Off Aricept. Start Risperdal 0.25 mg twice daily. 11. DVT prophylaxis. Heparin subcu 12. GI prophylaxis. Pepcid. 13. Osteoporosis. Hold Evista. 14. Diabetes mellitus type 2. Continue Levemir increased to 23 units at bedtime, scheduled NovoLog 6 units before meals and NovoLog scale. 15. Hypernatremia, hyperchloremia. IV fluids changed to D5 half normal saline. CODE STATUS: No code Discharge plan: [facility] [place] return Monday pending insurance authorization and patient condition. PT and OT consults. Impression and plan of care have been directed as dictated by the signing physician. Kate Corea nurse practitioner acting as scribe for signing physician.
[2019-05-26] MEDS: MORPHINE SULFATE 2 MG/ML SYRINGE IVP PRN (11:30)
[2019-05-27] MEDS: MORPHINE SULFATE 2 MG/ML SYRINGE IVP PRN ×3 (03:58→13:14)
[2019-05-27] MEDS: LORazepam 2 MG/ML INJ IV PRN (05:47)
[2019-05-27] MEDS: DEXTROSE 5%-0.45% NACL 1,000 ML IV SCH ×2 (08:16→17:40)
[2019-05-27] MEDS ORDERED: MORPHINE CONC SOLN 10mg/0.5mL ORAL SYRG PO PRN (13:58)
[2019-05-27] MEDS ORDERED: LORazepam 0.5 MG TAB PO PRN (14:00)
[2019-05-27] MEDS: SCOPOLAMINE 1.5MG/72HR PATCH TRANSDERM SCH (17:40)
[2019-05-28] MEDS: DEXTROSE 5%-0.45% NACL 1,000 ML IV SCH (04:58)
[2019-05-28 11:27] VITALS: RESP 16
--- NOTE | 2019-05-28 11:57 | P.DS ---
Providers Date of admission: 05/24/19 18:27 Expected date of discharge: 05/28/19 Attending physician: Paul Stern [facility] Course: This is a 74-year-old female patient of Dr. Verdin with past medical history of paroxysmal atrial fibrillation, advanced dementia, diabetes mellitus type 2, hypertension, hyperlipidemia, obstructive sleep apnea. Patient has had 2 recent hospitalization one due to dehydration secondary to diarrhea and possible urinary tract infection with metabolic encephalopathy. Patient return to the hospital due to a fall found to have an intertrochanteric fracture of the right hip status post IT nail and patient was discharge to [facility] for subacute rehab on May 10. Patient was transferred to [facility] emergency center due to low blood pressure of 60 systolic. Patient fairly has had profuse diarrhea and there is concern for GI bleed. Patient previously had issues with constipation and is on stool softeners followed by bowel movements and then profuse watery diarrhea. Patient's had no fever or chills. Patient found to be afebrile, vital signs stable, initial blood pressure 117/69 and heart rate of 95, pulse ox 96%. EKG was in normal sinus rhythm with no acute ST-T wave changes. WBC 18.4, hemoglobin 12.8, platelet count 562. Potassium 5.2, chloride 113, BUN 73 and creatinine 1.95, blood sugar 159. Influenza testing negative, C. difficile toxin negative, stool for occult blood negative. Urinalysis showed moderate blood, leukoesterase large, 3 BC 170, WBC clumps many, bacteria many. Total bilirubin 1.5, alkaline phosphatase 149. Initial lactic acid 3.6 and currently at 1.8. Patient has a sitter at the bedside as she is clear hands into her depends and trying to eat her feces. Family is looking at returning to [facility] is long-term care. 05/24: Blood sugar this morning was at 35 and scheduled Levemir, scheduled NovoLog were discontinued. Patient is currently on NovoLog scale only. Patient is eating very little less than 25% of her meals. Patient continues to be significantly confused. The patient has black stools but diarrhea has improved. Patient is on ferrous sulfate chronically. She has excoriation in the perineal area. Urine culture showing gram-negative bacilli. Blood culture no growth at 24 hours. Repeat lab work reveals WBC 15.0, hemoglobin 11.0. Sodium 154, potassium 4.1, chloride 126, CO2 23, BUN 57 creatinine 0.89. IV fluids changed to D5 and half-normal saline. PT to work with the patient today as we will need insurance authorization for patient to return to subacute rehab at [facility]. 05/25:Admit to hospice. Will review with patient we will be able to return to rehab at [facility]. With hospice. 05/28: Patient is scheduled for discharge back to [facility] under [facility] hospice care. Prescriptions have been provided. Patient will be discharged once all arrangements are completed. Discharge diagnosis: 1. Acute kidney injury secondary to GI loss from diarrhea, poor oral intake. 2. Lactic acidosis secondary to sepsis and acute kidney injury, 3. Sepsis secondary to acute urinary tract infection. 4. Diarrhea following stool softeners and constipation. 5. Electrolyte abnormality secondary to dehydration with hyperkalemia, hyperchloremia. 6. History of Intertrochanteric fracture right hip status post IT nail on Ja nuary 10, 7. Hyperlipidemia. 8. Hypertension. 9. History of paroxysmal atrial fibrillation, in normal sinus. 10. Advanced dementia. 11. Osteoporosis. 12. Diabetes mellitus type 2. 13. Hypernatremia, hyperchloremia. Discharge plan: [facility] with [facility] Impression and plan of care have been directed as dictated by the signing physician. Pati Tillman nurse practitioner acting as scribe for signing physician. Patient Condition at Discharge: Stable Plan - Discharge Summary New Discharge Prescriptions: New LORazepam [Ativan] 0.5 mg PO Q4HR PRN #18 tab PRN Reason: Anxiety Atropine Ophth Soln 1% 5Ml [Isopto Atropine 1% 5Ml] 2 drops SUBLINGUAL Q4HR PRN bottle PRN Reason: Excess Secretions MORPHINE ORAL DOUG CONC 20mg/mL [Roxanol Oral Soln Conc 20MG/ML] 10 mg PO Q4H PRN #30 ml PRN Reason: Pain Scopolamine 1.5MG/72Hr Patch [TransDerm Scop] 1 patch TRANSDERM Q72H #10 patch Discontinued Atorvastatin [Lipitor] 5 mg PO HS@2130 Carvedilol [Coreg] 3.125 mg PO DAILY@0800 Latanoprost [Xalatan 0.005%] 1 drop BOTH EYES HS@2100 ALPRAZolam [Xanax] 0.25 mg PO BID PRN 3 Days #6 tab PRN Reason: Anxiety INSULIN ASPART (NovoLOG) [NovoLOG (formulary)] 6 unit SQ AC-TID vial HYDROcodone/APAP 5-325MG [[place] 5-325] 1 - 2 tab PO Q4-6H PRN PRN Reason: Pain Na Phos,M-B/Na Phos,Di-Ba [Fleet Adult] 133 ml RECTAL DAILY PRN PRN Reason: Constipation Bisacodyl [Dulcolax] 10 mg RECTAL DAILY PRN PRN Reason: Constipation INSULIN ASPART (NovoLOG) [NovoLOG (formulary)] See Protocol SQ ACHS Acetaminophen Tab [Tylenol Tab] 650 mg PO Q4H PRN PRN Reason: Pain Glucerna Shake 237 ml PO TID@0800,1200,1700 Triamcinolone 0.5% Cream [Kenalog 0.5% Cream] 1 applic TOPICAL BID Sennosides-Docusate Sodium [Senokot-S] 1 tab PO BID@0800,1700 Lisinopril [Zestril] 10 mg PO BID@0800,1700 Ferrous Sulfate [Feosol] 325 mg PO BID@0800,1700 Cefuroxime Axetil [Ceftin] 500 mg PO BID@0800,2100 Mirtazapine [Remeron] 15 mg PO HS@2100 Aspirin [Adult Low Dose Aspirin EC] 81 mg PO BID@0800,1700 Magnesium Hydroxide [Milk of Magnesia Concentrate] 7,200 mg PO DAILY PRN PRN Reason: Constipation Insulin Detemir (Levemir) [Levemir] 23 unit SQ HS@2130 Discharge Medication List Atropine Ophth Soln 1% 5Ml [Isopto Atropine 1% 5Ml] 2 drops SUBLINGUAL Q4HR PRN bottle 05/28/19 [Rx] LORazepam [Ativan] 0.5 mg PO Q4HR PRN #18 tab 05/28/19 [Rx] MORPHINE ORAL DOUG CONC 20mg/mL [Roxanol Oral Soln Conc 20MG/ML] 10 mg PO Q4H PRN #30 ml 05/28/19 [Rx] Scopolamine 1.5MG/72Hr Patch [TransDerm Scop] 1 patch TRANSDERM Q72H #10 patch 02/04/20 [Rx] Discharge Disposition: TRANSFER TO SNF/ECF
== END 2019-05-28 14:19 | DRG 951 ==
LOC: 5NMEDONC 18:27
PROVIDERS: ADMIT Internal Medicine Geriatric Medicine; ATTEND Internal Medicine Geriatric Medicine
DX: Z51.5 Encounter for palliative care (principal); A41.51 Sepsis due to Escherichia coli [E. coli]; N39.0 Urinary tract infection, site not specified; E87.2 Acidosis; E87.0 Hyperosmolality and hypernatremia; N17.9 Acute kidney failure, unspecified; K59.00 Constipation, unspecified; E86.0 Dehydration; E87.5 Hyperkalemia; E87.8 Other disorders of electrolyte and fluid balance, not elsewhere classified; R19.7 Diarrhea, unspecified; G47.33 Obstructive sleep apnea (adult) (pediatric); E78.5 Hyperlipidemia, unspecified; I48.0 Paroxysmal atrial fibrillation; I10 Essential (primary) hypertension; F03.90 Unspecified dementia, unspecified severity, without behavioral disturbance, psychotic disturbance, mood disturbance, and anxiety; M81.0 Age-related osteoporosis without current pathological fracture; E11.9 Type 2 diabetes mellitus without complications; S72.141D Displaced intertrochanteric fracture of right femur, subsequent encounter for closed fracture with routine healing; W18.30XD Fall on same level, unspecified, subsequent encounter; Z98.890 Other specified postprocedural states